=== PATIENT | male | born 1955 | race Caucasian/White ===

== ENCOUNTER 2023-09-25 07:43 | Outpatient (OUT) | payer MEDICARE, OTHER, SELFPAY | END 2023-09-25 07:44 | disposition home or self-care (01) | LOC: LAB 07:45 | PROVIDERS: PCP Internal Medicine | DX: C61 Malignant neoplasm of prostate (principal) | CPT/HCPCS: 36415 ==

== ENCOUNTER 2024-10-20 13:51 | Outpatient (OUT) | payer MEDICARE, OTHER, SELFPAY ==
--- OUTSIDE RECORDS SUMMARY | 2024-10-20 14:06 | XMS_ITS | CCD ---
Author Organization [facility] Care Team Providers Care Assembler Surgical Garment Name Role Phone CHILO RODRIGUEZ Primary Care Physician [phone] CHILO RODRIGUEZ Admitting Unavailable WHIT, DR HIDALGO Primary Care Unavailable WHIT, DR HIDALGO Consulting Unavailable WHIT, DR HIDALGO Attending Unavailable ZIEBER, DR GEE Acosta Consulting Unavailable MISC, DR STONE Attending Unavailable WHIT, DR HIDALGO Primary Care Unavailable MISC, DR STONE Admitting Unavailable MISC, DR STONE Consulting Unavailable Chilo Rodriguez MD Unavailable [phone] Chilo Rodriguez MD Primary Care Provider LUIS Rodriguez Primary Care Provider MD Pearl Pagan Emergency Provider Pearl Pagan Attending Unavailable Pearl Pagan Admitting Unavailable Chilo Rodriguez Primary Care Unavailable KATHY SAHA Attending Unavailable CHILO RODRIGUEZ Attending Unavailable KATHY SAHA Attending Unavailable VIDA OZUNA Attending Unavailable CHILO RODRIGUEZ Referring Unavailable Allergies Allergy Classification Reported Allergen(s) Allergy Type Date of Onset Reaction(s) Facility (2 sources) Sulfamethoxazole; Translations: [sulfamethoxazole] Drug Allergy 08-26-20 24 Eruption of skin (disorder) [facility] (1 source) Sulfamethoxazole / Trimethoprim Drug Allergy rash [facility] Other (1 source) Sulfonamides (Antibiotic) Drug allergy (disorder) 02-22-20 14 [facility] Repository (9 sources) Sulfamethoxazole Allergy to substance 06-23-20 Unknown [facility] Work Phone: (10 sources) Trimethoprim Drug Allergy 06-23-20 23 Unknown [facility] (2 sources) Sulfonamides (Antibiotic); Translations: [Sulfa (Sulfonamide Antibiotics)] Allergy to substance 08-26-20 Hives [facility] (1 source) Sulfamethoxazole Drug Allergy 08-26-20 [facility] Repository (1 source) Trimethoprim Drug Allergy 08-26-20 [facility] Repository Medications Current Medications Medication Drug Class(es) Dates Sig (Normalized) Sig (Original) amoxicillin 875 mg / clavulanate 125 mg oral tablet (1 source) Penicillin-class Antibacterial Start: 09-01-2021 take 1 tablet by mouth every twelve hours Amoxicillin-Pot Clavulanate 875-125 MG 1 tablet Orally every 12 hrs for 10 day(s) Aug, Active cetirizine hydrochloride 10 mg oral tablet (11 sources) Histamine-1 Receptor Antagonist Start: 02-19-2024 take 1 tablet by mouth once daily cetirizine (ZyrTEC) 10 MG tablet Indications: Seasonal allergic rhinitis due to pollen Take 1 tablet (10 mg) by mouth Daily for 14 days 14 tablet 02/19/2024 Active Start: 06-15-2019 take 1 capsule by [facility] once daily as needed cetirizine 10 mg oral capsule 10 mg = 1 cap(s), Oral, Daily, PRN for allergy symptoms, # 40 cap(s), Refills(s) 0 Start Date: 06/15/19 Status: Ordered Start: 12-09-2018 End: 11-16-2019 take 10 mg by mouth once daily Cetirizine Discontinued 10 MG PO Daily December 09, 2018 1:00am November 16, 2019 6:12pm fluorouracil 50 mg/ml topical cream (2 sources) Nucleoside Metabolic Inhibitor Start: 09-27-2024 fluorouracil (Efudex) 5 % cream Indications: Actinic keratosis Apply to directed areas on the forearms twice a day x 14 days. Dispense 30 day supply but only use for 14 days. 40 g 09/27/2024 Active fluticasone propionate 0.05 mg/actuat metered dose nasal spray (9 sources) Corticosteroid Start: 02-19-2024 take 1-2 spray(s) nasal route once daily fluticasone (Flonase) 50 MCG/ACT nasal spray Indications: Seasonal allergic rhinitis due to pollen Administer 1-2 sprays into each nostril Daily Shake gently. Before first use, prime pump. After use, clean tip and replace cap. 16 g 02/19/2024 Active hydroCHLOROthiazide 25 mg / lisinopril 20 mg oral tablet (11 sources) Thiazide Diuretic, Angiotensin Converting Enzyme Inhibitor Start: 12-09-2018 take 1 tablet by mouth once daily lisinopril-hydro CHLOROthiazide 20-25 MG tablet Indications: Essential (primary) hypertension (CMS/HCC) TAKE 1 TABLET BY MOUTH ONCE DAILY 100 tablet 3 08/09/2024 Active ibuprofen 800 mg oral tablet (6 sources) Nonsteroidal Anti-inflammatory Drug Start: 08-26-2024 take 800 mg by mouth three times daily Ibuprofen Active 800 MG PO Three times daily August 26, 2024 12:00am omeprazole 20 mg delayed release oral tablet (10 sources) Proton Pump Inhibitor Start: 12-09-2018 Omeprazole Active 20 MG PO Q48H December 09, 2018 1:00am take 2 capsules by mouth once da adriane omeprazole (PriLOSEC) [address] capsule Take 2 capsules by mouth 1 (one) time each day at the same time. Active omeprazole 20 mg Cap-DR (1 source) Start: 06-15-2019 omeprazole 20 mg Cap-DR See Instructions, 1 cap(s) every other day, Refills(s) 0 Start Date: 06/15/19 Status: Ordered sildenafil 100 mg oral tablet (5 sources) Phosphodiesterase 5 Inhibitor Start: 07-22-2024 take 1 tablet by mouth every twenty-four hours as needed sildenafil (Viagra) 100 MG tablet Take 100 mg by mouth Daily as needed 07/22/2024 Active Completed/Discontinued Medications Medication Drug Class(es) Dates Sig (Normalized) Sig (Original) loratadine 10 mg oral tablet (1 source) Start: 06-26-2020 End: 08-26-2024 take 1 tablet by mouth once daily Loratadine (Claritin) 10 mg Tablet Discontinued 10 MG PO Daily June 26, 2020 12:00am August 26, 2024 4:38pm naproxen 500 mg oral tablet (2 sources) Nonsteroidal Anti-inflammatory Drug Start: 12-09-2018 End: 06-26-2020 take 500 mg by mouth twice daily at mealtime Naproxen Discontinued 500 MG PO Twice daily November 16, 2019 1:00am June 26, 2020 1:09pm administer with food or milk Tumeric (1 source) Start: 11-16-2019 End: 06-26-2020 take 1000 mg by mouth once daily Tumeric Discontinued 1000 MG PO Daily November 16, 2019 1:00am June 26, 2020 1:10pm Problems Active Problems Problem Classification Problem Date Documented Date Episodic/Chronic Cardiac dysrhythmias (4 sources) Multiple premature ventricular complexes; Translations: [Ventricular premature depolarization] 08-23-2024 Chronic Disorders of lipid metabolism (11 sources) Hyperlipidemia; Translations: [Hyperlipidemia, unspecified] Onset: 06-23-2023 06-23-2023 Chronic Diverticulosis and diverticulitis (9 sources) Diverticulitis of large intestine; Translations: [Diverticulitis of large intestine without perforation or abscess without bleeding] Onset: 06-23-2023 06-23-2023 Chronic Esophageal disorders (18 sources) Gastro-esophageal reflux disease with esophagitis; Translations: [Gastroesophageal reflux disease with esophagitis] Onset: 06-23-2023 Resolved: 02-19-2024 06-23-2023 Chronic Essential hypertension (14 sources) Hypertensive disorder; Translations: [Benign essential hypertension] Onset: 06-23-2023 06-15-2019 Chronic Hyperplasia of prostate (19 sources) Benign prostatic hypertrophy with outflow obstruction; Translations: [Large prostate ] Onset: 10-15-2018 Resolved: 02-19-2024 07-01-2019 Chronic Immunizations and screening for infectious disease (3 sources) Contact with and (suspected) exposure to other viral communicable diseases; Translations: [Needs influenza immunization] Onset: 09-01-2021 Resolved: 09-01-2021 Episodic Neoplasms of unspecified nature or uncertain behavior (2 sources) Neoplastic disease; Translations: [Neoplasm of unspecified behavior of bone, soft tissue, and skin] 09-27-2024 Episodic Nonspecific chest pain (10 sources) Atypical chest pain; Translations: [Other chest pain] Onset: 08-26-2024 08-26-2024 Episodic Osteoarthritis (9 sources) Osteoarthritis of knee; Translations: [Osteoarthritis of knee, unspecified] Onset: 06-23-2023 06-23-2023 Chronic Other connective tissue disease (2 sources) Digital mucous cyst; Translations: [Ganglion, unspecified hand] 09-27-2024 Episodic Other inflammatory condition of skin (2 sources) Erythema of skin; Translations: [Other specified erythematous conditions] 09-27-2024 Episodic Other skin disorders (4 sources) Actinic keratosis; Translations: [Actinic keratosis] 09-27-2024 Episodic Other skin disorders (2 sources) Seborrheic keratosis; Translations: [Other seborrheic keratosis] 09-27-2024 Episodic Other upper respiratory disease (9 sources) Allergic rhinitis; Translations: [Allergic rhinitis, unspecified] Onset: 06-23-2023 06-23-2023 Chronic Viral infection (6 sources) Mass of skin; Translations: [Viral wart, unspecified] 08-23-2024 Episodic Past or Other Problems Problem Classification Problem Date Documented Da te Episodic/Chronic Abdominal pain (4 sources) Lower abdominal pain, unspecified; Translations: [LOWER ABDOMINAL PAIN UNSPECIFIED] Onset: 05-31-2022 Episodic Cancer of prostate (16 sources) Malignant tumor of prostate; Translations: [Malignant neoplasm of prostate] Onset: 05-10-2014 Resolved: 02-19-2024 07-01-2019 Chronic Cancer of prostate (10 sources) History of malignant neoplasm of prostate; Translations: [Personal history of malignant neoplasm of prostate] Onset: 06-16-2014 06-15-2019 Episodic Genitourinary symptoms and ill-defined conditions (10 sources) Nocturia; Translations: [Nocturia] Onset: 02-19-2024 06-15-2019 Episodic Joint disorders and dislocations; trauma-related (9 sources) Derangement of right knee; Translations: [Unspecified internal derangement of right knee] Onset: 06-23-2023 Resolved: 02-19-2024 02-19-2024 Chronic Mood disorders (9 sources) Mood disorders Onset: 02-19-2024 02-19-2024 Nausea and vomiting (9 sources) Postoperative nausea and vomiting; Translations: [Nausea with vomiting, unspecified] Onset: 02-19-2024 Resolved: 02-19-2024 02-19-2024 Episodic Other gastrointestinal disorders (10 sources) Stool DNA-based colorectal cancer screening positive; Translations: [Other fecal abnormalities] Onset: 02-19-2024 02-19-2024 Episodic Other nutritional; endocrine; and metabolic disorders (9 sources) Body mass index 30+ - obesity; Translations: [Obesity, unspecified] Onset: 12-21-2019 Resolved: 02-19-2024 02-19-2024 Chronic Other nutritional; endocrine; and metabolic disorders (9 sources) Body mass index 25-29 - overweight; Translations: [Overweight] Onset: 02-19-2024 02-19-2024 Episodic Other screening for suspected conditions (not mental disorders or infectious disease) (10 sources) Raised prostate specific antigen; Translations: [Rising PSA following treatment for malignant neoplasm of prostate] Onset: 06-23-2019 07-01-2019 Episodic Other upper respiratory infections (1 source) Acute maxillary sinusitis, unspecified Onset: 09-01-2021 Resolved: 09-01-2021 Episodic Viral infection (1 source) Disease caused by 2019-nCoV; Translations: [COVID-19] Results Test Name Value Interpretation Reference Range Facility Laboratory - Specimen inform ationon 09-30-2024 Specimen type Nom (Spec) SPECIMEN: LT FOREARM [facility] No Panel Informationon 09-30 CPT 38239*1 [facility] Final Diagnosis SQUAMOUS CELL CARCIN NITA, WELL-DIFFERENTIATED, INVASIVE. [facility] Gross Text [facility] ICD10 Code C44.621 [facility] Microscopic Description Microscopic examination performed. [facility] PROTOCOL F - FLAT [facility] No Panel Informationon 09-27 [facility] Type of biopsy: garces ential Informed consent: discussed and consent obtained Informed consent comment: The risks and benefits of the biopsy were discussed. Risks include but are not limited to bleeding, infection, scarring, pain, and nerve damage. An opportunity to ask questions prior to the procedure was permitted and all questions were answered. Patient was prepped and draped in usual sterile fashion: area cleansed with alcohol. Anesthesia: the lesion was anesthetized in a standard fashion Anesthetic: 1% lidocaine w/ epinephrine 1-100,000 buffered w/ 8.4% NaHCO3 Instrument used: DermaBlade Hemostasis achieved with: electrodesiccation Outcome: patient tolerated procedure well Outcome comment: The specimen was placed in a prelabeled formalin container to be sent for pathology Post-procedure details: sterile dressing applied and wound care instructions given Post-procedure details comment: Emphasized need to contact clinic for any signs of infection, uncontrollable bleeding, or complications. Dressing type: bandage Additional details: Photo taken Amount of lidocaine used: 1.0 cc [facility] Alanine aminotransferase [En zymatic activity/volume] in Serum or PlasmaOrdered By: Pearl Pagan on 08-26-2024 ALT [Catalytic activity/Vol] 15 U/L Normal 7-52 [facility] Comment on above: Performed By: #### C BC, CMP, CK, HS TROP #### [place] [address] [place] Albumin [Mass/volume] in Ser um or Plasma by Bromocresol green (BCG) dye binding methoOrdered By: Pearl Pagan on 08-26-2024 Albumin BCG dye [Mass/Vol] 4.5 g/dL 3.5-5.7 [facility] Alkaline phosphatase [Enzyma tic activity/volume] in Serum or PlasmaOrdered By: Pearl Pagan on 08-26-2024 ALP [Catalytic activity/Vol] 77 U/L Normal 34-104 [facility] Comment on above: Performed By: #### C BC, CMP, CK, HS TROP #### [place] [address] [place] Aspartate aminotransferase [ Enzymatic activity/volume] in Serum or PlasmaOrdered By: Pearl Pagan on 08-26-2024 AST [Catalytic activity/Vol] 17 U/L Normal 13-39 [facility] Comment on above: Performed By: #### C BC, CMP, CK, HS TROP #### [place] [address] [place] Automated basophil %Ordered By: Pearl Pagan on 08-26-2024 Basophils/100 WBC (Bld) 0.8 % Normal . [facility] Comment on above: Performed By: #### C BC, CMP, CK, HS TROP #### [address] [address] [place] Automated basophil countOrde red By: Pearl Pagan on 08-26-2024 Basophils (Bld) [#/Vol] 0.1 10*3/uL Normal 0.0-0.2 [facility] Comment on above: Result Comment: PERF ORMED BY: [place] [address] PATHOLOGIST ROUTE AGENT TIM MCKEON M.D. Performed By: #### C BC, CMP, CK, HS TROP #### [address] Automated blood monocyte cou ntOrdered By: Pearl Pagan on 08-26-2024 Monocytes (Bld) [#/Vol] 0.6 10*3/uL Normal 0.0-0.8 [facility] Comment on above: Performed By: #### C BC, CMP, CK, HS TROP #### [facility] [address] [place] [address] Automated eosinophil %Ordere d By: Pearl Pagan on 08-26-2024 Eosinophils/100 WBC (Bld) 4.1 % Normal . [facility] Comment on above: Performed By: #### C BC, CMP, CK, HS TROP #### [facility] [address] [place] [address] Automated eosinophil countOr dered By: Pearl Pagan on 08-26-2024 Eosinophils (Bld) [#/Vol] 0.3 10*3/uL Normal 0.0-0.45 [facility] Comment on above: Performed By: #### C BC, CMP, CK, HS TROP #### [address] Automated monocyte %Ordered By: Pearl Pagan on 08-26-2024 Monocytes/100 WBC (Bld) 9.4 % Normal . [facility] Comment on above: Performed By: #### C BC, CMP, CK, HS TROP #### [facility] [address] [place] [address] Automated neutrophil %Ordere d By: Pearl Pagan on 08-26-2024 Neutrophils/100 WBC (Bld) 61.4 % Normal . [facility] Comment on above: Performed By: #### C BC, CMP, CK, HS TROP #### [facility] [address] [place] [address] [place] Bilirubin.total [Mass/volume ] in Serum or PlasmaOrdered By: Pearl Pagan on 08-26-2024 Bilirubin [Mass/Vol] 0.4 mg/dL Normal 0.3-1.0 [facility] Comment on above: Performed By: #### C BC, CMP, CK, HS TROP #### [facility] [address] [place] [address] [place] Calcium [Mass/volume] in Ser um or PlasmaOrdered By: Pearl Pagan on 08-26-2024 Calcium [Mass/Vol] 9.6 mg/dL Normal 8.6-10.3 [facility] Comment on above: Performed By: #### C BC, CMP, CK, HS TROP #### [facility] [address] [place] [address] [place] Carbon dioxide, total [Moles /volume] in Serum or PlasmaOrdered By: Pearl Pagan on 08-26-2024 CO2 [Moles/Vol] 27.9 mmol/L Normal 21.0-31.0 [facility] Comment on above: Performed By: #### C BC, CMP, CK, HS TROP #### [place] [address] [place] Chloride [Moles/volume] in S isa or PlasmaOrdered By: Pearl Pagan on 08-26-2024 Chloride [Moles/Vol] 103 mmol/L Normal 98-107 [facility] Comment on above: Performed By: #### C BC, CMP, CK, HS TROP #### [place] [address] [place] Complete Blood Count Auto Di ffon 08-26-2024 Mean Corpuscular HGB Conc 35.5 g/dL Normal 32.5-35.6 [facility] Comment on above: Performed By: #### C BC, CMP, CK, HS TROP #### [place] [address] [place] Monocytes/100 WBC (Bld) 17.86 % Normal 0.00-20.00 [facility] Comment on above: Performed By: #### C BC, CMP, CK, HS TROP #### [address] NRBC% 0.2 /100{WBC} Normal 0-0.5 [facility] Comment on above: Performed By: #### C BC, CMP, CK, HS TROP #### [address] Comprehensive Metabolic Pane bridgette 08-26-2024 Albumin [Mass/Vol] 4.5 g/dL Normal 3.5-5.7 [facility] Comment on above: Performed By: #### C BC, CMP, CK, HS TROP #### [address] Creatinine Clr Calc Pharmacy 80.77 Normal [facility] Comment on above: Result Comment: PERF ORMED BY: [place] [address] PATHOLOGIST [employer]TE AGENT TIM MCKEON M.D. Performed By: #### C BC, CMP, CK, HS TROP #### [address] GFR/1.73 sq M.predicted MDRD (S/P/Bld) [Vol rate/Area] mL/min/{1.73_m2} Normal [facility] Comment on above: Performed By: #### C BC, CMP, CK, HS TROP #### [address] Creatine kinase [Enzymatic a ctivity/volume] in Serum or PlasmaOrdered By: Pearl Pagan on 08-26-2024 CK [Catalytic activity/Vol] 114 U/L Normal 30-223 [facility] Comment on above: Performed By: #### C BC, CMP, CK, HS TROP #### [address] Creatinine [Mass/volume] in Serum or PlasmaOrdered By: Pearl Pagan on 08-26-2024 Creatinine [Mass/Vol] 0.91 mg/dL Normal 0.70-1.30 [facility] Comment on above: Performed By: #### C BC, CMP, CK, HS TROP #### [facility] [address] ECG 12 lead ECGon 08-26-2024 ECG 12 lead ECG [facility] [address] [place] [address] [place] [address] Electrocardiograph Report Signed Patient: Mahendra Vaughn MR#: [id number] : 1955 Acct:[id number] Age/Sex: 69 / M ADM Date: 08/26/24 Loc: ER Room: Type: [facility] ER Attending Dr: Ordering Provider: Pearl Pagan MD Date of Service: 08/26/24 ECG/ECG 12 lead ECG: Chest Pain Copies to: Test Reason : Blood Pressure : */* mmHG Vent. Rate : 80 BPM Atrial Rate : 80 BPM P-R Int : 162 ms QRS Dur : 94 ms QT Int : 358 ms P-R-T Axes : 30 0 22 degrees QTcB Int : 412 ms Sinus rhythm with occasional premature ventricular complexes Inferior infarct , age undetermined Abnormal ECG When compared with ECG of 16-Nov-2019 15:05, premature ventricular complexes are now present premature supraventricular complexes are no longer present Inferior infarct is now present Confirmed by PEARL PAGAN MD ([id number]) on 08/26/2024 6:54:58 PM Referred By: Electronically Signed By: PEARL PAGAN MD Transcribed By: MUS Signed By Pearl Pagan MD 08/26/24 987 Normal [facility] Erythrocyte distribution wid th [Ratio] by Automated countOrdered By: Pearl Pagan on 08-26-2024 Erythrocyte distribution width (RBC) [Ratio] 13.3 % Normal 12.0-14.8 [facility] Comment on above: Performed By: #### C BC, CMP, CK, HS TROP #### [facility] [address] [place], [place] [id number] [facility] [[email or web address]] Erythrocytes [#/volume] in B lood by Automated countOrdered By: Pearl Pagan on 08-26-2024 RBC (Bld) [#/Vol] 4.67 10*6/uL Normal 3.90-5.60 [facility] Comment on above: Performed By: #### C BC, CMP, CK, HS TROP #### [facility] [address] [place] [address] [place] Glucose [Mass/volume] in Ser um or PlasmaOrdered By: Pearl Pagan on 08-26-2024 Glucose [Mass/Vol] 101 mg/dL High 70-100 [facility] Comment on above: ADA recommended refe rence rangeRandom Glucose Reference Range is dependent on time and content of last meal. Glucose of more than 200 mg/dL in a nonstressed, ambulatory subject supports the diagnosis of Diabetes Mellitus. Result Comment: [place] om Glucose Reference Range is dependent on time and content of last meal. Glucose of more than 200 mg/dL in a nonstressed, ambulatory subject supports the diagnosis of Diabetes Mellitus. ADA recommended reference range Performed By: #### C BC, CMP, CK, HS TROP #### [facility] [address] [place] [address] Hematocrit [Volume Fraction] of Blood by Automated countOrdered By: Pearl Pagan on 08-26-2024 Hematocrit (Bld) [Volume fraction] 41.9 % Normal 38.8-50.0 [facility] Comment on above: Performed By: #### C BC, CMP, CK, HS TROP #### [address] Hemoglobin [Mass/volume] in BloodOrdered By: Pearl Pagan on 08-26-2024 Hemoglobin (Bld) [Mass/Vol] 14.9 g/dL Normal 13.0-17.0 [facility] Comment on above: Performed By: #### C BC, CMP, CK, HS TROP #### [facility] [address] [place] [address] [place] Leukocytes [#/volume] correc heidi for nucleated erythrocytes in Blood by Automated counOrdered By: Pearl Pagan on 08-26-2024 WBC corrected for nucl RBC Auto (Bld) [#/Vol] 6.7 10*3/uL 4.1-10.5 [facility] Leukocytes [#/volume] in Blo od by Automated countOrdered By: Pearl Pagan on 08-26-2024 WBC (Bld) [#/Vol] 6.7 10*3/uL Normal 4.1-10.5 [facility] Comment on above: Performed By: #### C BC, CMP, CK, HS TROP #### [facility] [address] [place] [address] [place] Lymphocytes [#/volume] in Bl ood by Automated countOrdered By: Pearl Pagan on 08-26-2024 Lymphocytes (Bld) [#/Vol] 1.6 10*3/uL Normal 1.00-4.8 [facility] Comment on above: Performed By: #### C BC, CMP, CK, HS TROP #### [facility] [address] [place] [address] [place] Lymphocytes/100 leukocytes i n Blood by Automated countOrdered By: Pearl Pagan on 08-26-2024 Lymphocytes/100 WBC (Bld) 24.3 % Normal . [facility] Comment on above: Performed By: #### C BC, CMP, CK, HS TROP #### [facility] [address] [place] [address] [place] MCH [Entitic mass] by Automa heidi countOrdered By: Pearl Pagan on 08-26-2024 MCH (RBC) [Entitic mass] 31.9 pg Normal 27.5-35.2 [facility] Comment on above: Performed By: #### C BC, CMP, CK, HS TROP #### [address] MCHC Auto (RBC) [Mass/Vol]Or dered By: Pearl Pagan on 08-26-2024 MCHC (RBC) [Mass/Vol] 35.5 g/dL 32.5-35.6 [facility] MCV [Entitic volume] by Auto mated countOrdered By: Pearl Pagan on 08-26-2024 MCV (RBC) [Entitic vol] 89.8 fL Normal 83.5-101 [facility] Comment on above: Performed By: #### C BC, CMP, CK, HS TROP #### [place] [address] [place] Monocyte distribution width [Entitic volume] in Blood by AutomatedOrdered By: Pearl Pagan on 08-26-2024 Monocyte distribution width Auto (Bld) [Entitic vol] 17.86 % 0.00-20.00 [facility] Neutrophils [#/volume] in Bl ood by Automated countOrdered By: Pearl Pagan on 08-26-2024 Neutrophils (Bld) [#/Vol] 4.1 10*3/uL Normal 1.8-7.7 [facility] Comment on above: Performed By: #### C BC, CMP, CK, HS TROP #### [address] No Panel InformationOrdered By: Pearl Pagan on 08-26-2024 Estimated GFR (CKD-EPI) > 60.0 mL/Min [facility] Creatinine Clearance (Chem 80.77 [facility] Nucleated erythrocytes [Pres ence] in Blood by Automated countOrdered By: Pearl Pagan on 08-26-2024 Nucleated RBC Auto Ql (Bld) 0.2 /100{WBC} 0-0.5 [facility] Platelet mean volume [Entiti c volume] in Blood by Automated countOrdered By: Pearl Pagan on 08-26-2024 Platelet mean volume (Bld) [Entitic vol] 7.2 fL Normal 6.6-10.1 [facility] Comment on above: Performed By: #### C BC, CMP, CK, HS TROP #### [address] Platelets [#/volume] in Bloo d by Automated countOrdered By: Pearl Pagan on 08-26-2024 Platelets (Bld) [#/Vol] 175 10*3/uL Normal 150-450 [facility] Comment on above: Performed By: #### C BC, CMP, CK, HS TROP #### [facility] [address] [place] [address] [place] Potassium [Moles/volume] in Serum or PlasmaOrdered By: Pearl Pagan on 08-26-2024 Potassium [Moles/Vol] 3.7 mmol/L Normal 3.5-5.1 [facility] Comment on above: Performed By: #### C BC, CMP, CK, HS TROP #### [facility] [address] Protein [Mass/volume] in Ser um or PlasmaOrdered By: Pearl Pagan on 08-26-2024 Protein [Mass/Vol] 7.5 g/dL Normal 6.4-8.9 [facility] Comment on above: Performed By: #### C BC, CMP, CK, HS TROP #### [address] Serum globulin measurement b y calculation (mass/volume)Ordered By: Pearl Pagan on 08-26-2024 Globulin (S) [Mass/Vol] 3.0 g/dL Normal [facility] Comment on above: Performed By: #### C BC, CMP, CK, HS TROP #### [address] Serum or plasma albumin/glob ulin mass ratioOrdered By: Pearl Pagan on 08-26-2024 Albumin/Globulin [Mass ratio] 1.5 {ratio} [facility] Comment on above: Performed By: #### C BC, CMP, CK, HS TROP #### [address] Serum or plasma anion gap de terminationOrdered By: Pearl Pagan on 08-26-2024 Anion gap [Moles/Vol] 10.8 mmol/L Normal 6.0-15.0 [facility] Comment on above: Performed By: #### C BC, CMP, CK, HS TROP #### [address] Sodium [Moles/volume] in Ser um or PlasmaOrdered By: Pearl Pagan on 08-26-2024 Sodium [Moles/Vol] 138 mmol/L Normal 136-145 [facility] Comment on above: Performed By: #### C BC, CMP, CK, HS TROP #### [address] Troponin I High Sensitivityo n 08-26-2024 Troponin I High Sensitivity 14.2 pg/mL Normal 0.0-20.0 [facility] Comment on above: Result Comment: PERF ORMED BY: [place] [address] PATHOLOGIST ROUTE AGENT TIM MCKEON M.D. Performed By: #### C BC, CMP, CK, HS TROP #### [facility] [address] [place] [address] Troponin I.cardiac [Mass/vol ume] in Serum or Plasma by Detection limit <= 0.01 ng/Ordered By: Pearl Pagan on 08-26-2024 Troponin I.cardiac DL <= 0.01 ng/mL [Mass/Vol] 14.2 pg/mL 0.0-20.0 [facility] Urea nitrogen [Mass/volume] in Serum or PlasmaOrdered By: Pearl Pagan on 08-26-2024 Urea nitrogen [Mass/Vol] 15 mg/dL Normal -25 [facility] Comment on above: Performed By: #### C BC, CMP, CK, HS TROP #### [facility] [address] [place] [address] XR chest 1V portableon 08-26 XR chest 1V portable [facility] [place] [address] [place] [address] XRay Report Signed Patient: Mahendra Vaughn MR#: [id number] : 1955 Acct:[id number] Age/Sex: 69 / M ADM Date: 08/26/24 Loc: ER Room: Type: [facility] ER Attending Dr: Copies to: Pearl Pagan MD Ordering Provider: Pearl Pagan MD Date of Service: 08/26/24 XR/XR chest 1V portable: Chest Pain SINGLE VIEW CHEST CLINICAL HISTORY: Intermittent left-sided chest pain for 3 days COMPARISON: Chest 11/16/2019 FINDINGS: Heart normal in size. Lungs are clear. No free air. XR/XR chest 1V portable IMPRESSION: NO ACUTE FINDINGS Impression dictated by: Domenic Cast Jr., D.O.08/26/2024 4:27 PM Dictation Location: [place] [address] Transcribed By: [facility] 08/26/241626 Dictated By: Domenic Cast Jr, DO 08/26/241625 Signed By: 08/26/24 1627 Normal [facility] BOX TEST SENT OUTon 10-23-20 SENT TO REF LAB 10/23/2022 Normal [facility] Comment on above: Performed By: #### B OX #### [facility] [address] ABD/PELV W CONon 05-31-20 CT ABD/PELV W CON EXAMINATION: CT ABD/ PELV W CON HISTORY: Lower abdominal pain ; stomach cramping COMPARISON: No relevant comparison available. TECHNIQUE: Axial, Coronal, and Sagittal images were created with IV contrast. Dose reduction techniques were achieved by using automated exposure control and/or adjustment of mA and/or kV according to patient size and/or use of iterative reconstruction technique. FINDINGS: LUNG BASES: No visible pulmonary or pleural disease. LIVER: No enlargement, atrophy, suspicious density, or significant focal lesion. BILIARY: No dilatation or calcification. PANCREAS: No lesion, fluid collection, or abnormal duct dilatation. SPLEEN: No enlargement or focal lesion. ADRENALS: No mass or enlargement. KIDNEYS: A few small hypodensities bilaterally, nonspecific but favoring cysts. No mass, obstruction, or calcification. BOWEL/MESENTERY: Mild circumferential wall thickening of distal stomach; lack of distention versus gastritis. Numerous small diverticula involving the sigmoid colon without acute inflammatory changes. No visible mass, obstruction, or bowel wall thickening. Normal appendix. AORTA/VASCULAR: No aneurysm or dissection. RETROPERITONEUM: No mass or adenopathy. LYMPH NODES: No adenopathy. URINARY BLADDER: No visible focal wall thickening, lesion, or calculus. PELVIC ORGANS: No visible mass. Pelvic organs appropriate for patient age. ABDOMINAL WALL: No mass or hernia. BONES: L5-S1 marked degenerative disc disease. Degenerative changes of the hip joints bilaterally. OTHER: Negative. IMPRESSION: 1. Possible gastritis of distal stomach; wall thickening which may be due to inflammatory changes or lack of distention. 2. Sigmoid diverticulosis without acute diverticulitis. 3. No specific findings to account for patient's symptoms. Electronically authenticated by: GEE ESCOBAR Date: 2022-05-31 17:28 Normal [facility] Coding Summary.on 12-03-2021 Coding Summary. [id number] Gh0bWw +PGhlYWQ+VH4ZJXCiA93avXWre H6KL7fQRG4DGCHEQMHYYC4DDV3 enIZ8OCmwW9ZtlgEq RikqsUYpHK63IBv7INV7sKwcJI xhrN3bzPAlW5g1DeTeQW59zT99 HOydBCPeGjP1XaVrwhjxfRFy L2srAiJapHHlIza+PHRhYmxlIH noZGMbAAejFKJhFcJsfNicYE1d Om1nYNFiKXNdwDdigYSiYdDr v7hlYZLcVKuvYH0prUdaH5PqnP G8UXIqe6b1Nz19oSH+PHRkIHN0 yAqrXYfuz074QxAtk8auGTE3 mKBsVMejTND9Y48ab1T4SLXjCY MvTRZ4uRC1tV8qxKyisopuQ4Hw eKEeUkM9UBY1wDIqvY7mgQkf xrrgqW2nAoe+H84UJT7WRVDDQB 5ICrk5W4XmBwtuyZV+UR91LRMu KR80iQVclKQkx8xegSm6OyOu RFVmPHS5zKpdNVcnc9JsFKGrA5 9jiGVju6J8SAZeqQwwxFPwXoFd rFM8rC4pSTfrzhbbn7jaqmbb Moyew9ekul04tO26V00yDToqKH BhRVJ7NHKdZYOcjYprdw6yvL5t Ii8+BRwyh5hpp1ypfEt7AsNy TWWsjdHixEcbSTW3n3EcYx74T3 EqpAwqw1QtZkt8jr67mMSoh3E9 iWX9IRbjNPLrcL0zUQkqTfB8 RXZoIvGutM44fDNbKNebDz8gwO pnpLyvLX2pARYlvjkuSIKdlP3d HVHlfOZfsUtjVT9iZFUvhubq i671NuGfDNW0QKGowAIyR6DmrJ 5wYtGkYYGeKDIsK6DxkAUvNVfa G438IZexLdQ7HYXwodTuP0Ns QJSuoZjfPgT6a2V7Dl7Sp6Nzgj pdCJY8XOqfUZQrOuU5BcReCuD0 J1NyQcf1OQMnqIhzFM6fE1Rk YZYpdmsfjyyheDV8AEPxGYWneC 09jPVcIJagPp2av3D7z591LIWa OXJayL80Mh1naLlpVQJocHBE kE5yvaqyy8wmzjpzZcQeTYVeND w7QLj2UMNvbIxpMlPuYTD6WlA1 YWY4kVUiiK6bjDcimjgwsF2n Oyc+L40zkC1lVFL2VXI5gbuqWB DikeNeSJ13RC18Q1VeXcsifJNp bGU+LUVthnWzmXzrFK8xNaEu e9ihj8YdQXpmC7KcOOPvPXefUz d6GVHmASF3aGU8qL5gAVGjVWig r6V1nHV2C8XffrHrzc2lj9wr CHObSIogV31wySZgq6O1RHBxsL B2GVGypPhtZxCslU15Yvl+PGNv tPtqj0VmRthgo9nzm7rdyLt1 KiReRYYcmpTwtOmaNNZ9s9YyXp 09A03fLCpcKFGpYNJrVGGcBWSp iXihpa1muR2wFb6+PGNvbCB3 kAG7zW8bVSMeQgR9XYvwW971Zc XsxAJsUnuvt5qco7mqtZw7BdYm OMZsxyVtlHhsTBF0m1ZjSr00 Y40cBUasJTLkAJLcKPBdOPDicQ rdqe4ufN4uCw0+WE5kp6jxas27 aC48aWJ+XZHbUHJ7oPujGMwz NRDhsN8gGPcvXwG7WUTvHjScxN 50bKVfQPamIh2stIvmfCsjID5w MISgqeknu133ZhScf8vkYZTf kDZbPAacBDW2R87lm3U3KYZgFZ JhLRF0yEO8jB1hnZcbtmnaqVEv xXpjwgEasUdaVDujJJtfV883 IHRvcDsnPlBhdGllbnQgTmFtZT a7L7PoJwm4XXDbqOoaRE4cmWCz LRugKs5esJhqlAnvEL0jUDZj tklzf019TaLnp6xnTPSemFJnSK cmECF4F26rt3X1NYTjIVPeRQL6 yGD3xE9bmAotznmivWKboKjf fgOphJxsSEtgDHnaA193TLXhhG isYwHqvuFxADRbkAS6WN24EK06 cMOyj2A7xVT6M2OdEXLectqk amihuQA8ZRVyRXThpG68Fj8cqE vbEw0zQUIoRFZ7AWRsoGNbE4Ta wE6tTuVpPQNjJUWrX7UlmONw AVifO220NFsoZdI1CIAdmxQoO9 RsLQUvyOphImG4q2L2Bg5MD4O0 FK39OE76oURzf9V1gFX0Q7Ze YWUspfyfvmggqWM3KXToPTAeeP 30Hg0tvFdoLd0mGYPnCLY4VICp mCBxL1JawD5iUsCvRMCuCCUo J2PljBVqSJcrX036ICtvAoG7NC RiyzPoS1RrUPJndMquTtM2o0R2 Nt9CJHl5UQ05PP91mVCug1Z0 fAK4O4HlQQOesrxlrdbuqDW8WB WhYSFzpD18Me2lyKoyNw6pKYDo DMN6TBDrzJRjB3XotV4xHpPd ACJbNVVgI7GocEGvHLtxY042OI pxJjL5RTZzqsSoP5OzUNRymRet LzE8w9D9Nh6VFOLcVJ26DEF1 iHD4TN82SM47V8OzUbkarBRziZ U+PHRhYmxlIHdpZHRoPScxMDAl RxJveHczBJ7iMw7sZQVuOLXq hRivbONvJhMoh5nqRIKnZYrdVC 8baNfgP0VlzHT7POOaf1c1Ts65 U97bB6LktFX+KBPvoXU6aBU8 iZ1wKfYoFcC6ZLylY202SuChcV DgEntwj8ars1mczFq0WoZ5AMVo dzQzoZawJNR5w6UmFn57K98t IHdpZHRoPSIxNSUiIHZhbGlnbj 9spC5kSx5+TRLniBC3kQV4xZ4w LmNcWnK0YZxpR037OkJlpUBi Xifmw9vce6klpRe2SsQlHCZfor MfbSquXJP9w6FxOq46I1IucEwa o9EkTla0nk97kRKsb9G7eJZ7 X6IcSOLhcixnoTBfyPznJJ7eMY VnmussEWYjwY9kUVErT2j6VyFo WyP3LXmzL6DoxaR5FKEmlRYh HGvmXWL3D04hr1K3ARKiRLDdVS L2dNH3lA7qbUbsmaflwCVdsDgv ikLbzHlgRIuiREgxA776RGEj qJisOVZavL1nVPKapVJqxVwgCG 8kNMCirqcySsKLSlFFLN0IXUeu UkFORFkgSjwvdGQ+PHRkIHN0 sQxfEYbmGKGagW0wNOXjY9r1Oh CeFnC2OYfaO6MoSZWxeqmeXp42 rR4eDvJxBlC8CZkkZ8PcgjS5 IPIcvNSrNPsuYND6N22gu0E0AY AbGNMpJBG6mTA5qT9bgNufhxry bGVmdDsgdmVydGljYWwtYWxp S747SVRavJoqClF8LrM3FpC6OH S2Q1UoXyr3PNKxqAesMB3gdGUn AQzaQu9ttDiapPkeVB8cHZSd lsiaPPSksN7sIPAemCHwvZfyHN 7nQPDizlyab596IiItEDC8LOYb nONdZ0LyiC9vNqVeMKPxKDSh V5TvrVQrOFkaP628XXgsIzC2WK KoftFoO2GzYYZvkRypAnJ7m6M9 Zu99AlAZSLKxaujywSL+PHRk CHU2mAgjLXzyWNTzeF4uDHElY9 d3FgKbHxS2YXjpC3FlKIMytdid Hp21jU5uGuYnWpX0AHgzG3Ak fpV0VYQwpIJbQEhqFEB8G90ie3 Y0MVMbRTGlEUD1zUR1rV6dwBna bjogbGVmdDsgdmVydGljYWwt ECvgX479ZHTyvDxkUe6vwZD1D9 KeOpt4PWYtnHajOM3ksCXlKKle Pl8kpKbnhWfcTG2gKPEjdsqi LKVkmA6qLFZpgUMcoNhvYV8uVA Litstcg761GfRuPDV6IPPssUCs C6FezN4hItXvQQYqNBYbM4Fy dFSkSAbtQ972ZRmhQtS2RZUdqx MkM3GyVLNxtElpFjJ5r5D2On3F VFR5vqLtldj9Y2OtQwonvAZ+ DO28UUPlOK60wAGwtBCee4emlL s3OcTwBPGySVO7uCkrWNkfr6Ep DPLfO86mrBRpk1L6IYFaeQrp dTSuQaZqhCA7bK1dIWnoncqzy5 osdqxyOgusj7ryow97pP89J56a IHdpZHRoPSIzMCUiIHZhbGln sv5xrX3mNk1+WYMlgOK8jCL7dY 9fQjGzNzM9TNfmC259VvVivSYr Ukase9qie8ndgNa5VeEtHWCc ehKxmEymQQX0r9XwTp28U51cDW siPXDxTYSkGXXyBQAekCmjmg1q tQ6lUh1+GR7st2syne16kZ08 dHI+OJPnCUK4xMxkFSreKYXneK 0hFLiqApG1GXBkBfQuwF55gLBf QVdyCf8keMiyyLowAP4pJIDp duiag852RiNut4nuIAFkrEXeIU emAYA6D90xb7X0ZGFlCQJbVWJ7 pNT9tP7puXbotjewlFDpzUry sdBmdHkuSJbbKFcsG636NWRvcH duRxIvwTRoV3idcyAZCV2hLeoh dGQ+ZUCcKCA1dZdmKXihFXIn eQ8tYHSqD2l8EgCePuJ4XRybK2 EgerG1CUGdwBAxFJRwcJCKpB1c qdnjw6telzruVuAvFTJdBNs2 NAe4JNUkzQkpIvEtQRG3BwN7FG G8hRCvuA7uzFoynzmjjJ0rQyd+ RklOOjwvdGQ+YXEwPGS5xHeb QSguZPQlmR5mHUIzQ7p3IvQdCv O6TNypS2ZzlmL3OJQzzFKdJHRe yBUBeZ1sominz8krevpgFiIz ZJXuOHw7JQh3FWGhdCgkWqDcNH P5HwO7GEL7cZIpmG7rkYauecrp bX5uGvj+TVJOOjwvdGQ+PHRk VLE8kJiiBDrgGFRyhX6pRUYuU0 v4PiGhStR2PKmtD2OgdtX6NBKh uMRaBWNdvUQGaJ0altnif2mg yaetHtUwDIJxAAx8RZc4QJHgfS xyTsGfJCC1AtR4NIW7uKMhrW6x iSubkujmrI7fIis+AFY8VTW8 HG76JH83W5XaCcealTOpgBR+PH RhYmxlIHdpZHRoPScxMDAlJyBz ySrfSA0uQg4iVRSgPTIvqPce cHNl (more content not included)... Normal [facility] Priority Order-Marcia 2021 Priority Order-STAT Comment Invalid Interpretation Code [facility] Comment on above: Result Comment: Rece ived Performed at: [employer] [id number] [id number] PhD Mitesh Chand Performed By: #### 2 [id number], SARS-CoV-2, ANNE #### [facility] [address] [place] [address] SARS-CoV-2, NAAon 12-01-2021 SARS-CoV-2 (COVID-19) RNA ANNE+probe Ql (Resp) Detected Abnormal Not Detected [facility] Comment on above: Result Comment: Yadira ents who have a positive COVID-19 test result may now have treatment options. Treatment options are available for patients with mild to moderate symptoms and for hospitalized patients. Visit our website at [email or web address] for resources and information. This nucleic acid amplification test was developed and its performance characteristics determined by [employer]. Nucleic acid amplification tests include RT-PCR and TMA. This test has not been FDA cleared or approved. This test has been authorized by FDA under an Emergency Use Authorization (EUA). This test is only authorized for the duration of time the declaration that circumstances exist justifying the authorization of the emergency use of in vitro diagnostic tests for detection of SARS-CoV-2 virus and/or diagnosis of COVID-19 infection under section 564(b)(1) of the Act, 21 U.S.C. 360bbb-3(b) (1), unless the authorization is terminated or revoked sooner. When diagnostic testing is negative, the possibility of a false negative result should be considered in the context of a patient's recent exposures and the presence of clinical signs and symptoms consistent with COVID-19. An individual without symptoms of COVID-19 and who is not shedding SARS-CoV-2 virus would expect to have a negative (not detected) result in this assay. Performed at: [facility] [id number] [id number] PhD Mitesh Chand Performed By: #### 2 [id number], SARS-CoV-2, ANNE #### [facility] [address] [place] [address] Consent for Treatmenton 11-11 Consent for Treatment [id number]:127 Normal [facility] Physician Orderon 11-30-2021 Physician Order [id number]:127 Normal [facility] Testing Ordered By: Generated [employer] on 11-30-2021 SARS-CoV-2 (COVID-19) RNA ANNE+probe Ql (Resp) Detected Invalid Interpretation Code Not Detected [facility] [employer] Comment on above: Result Comment: Yadira ents who have a positive COVID-19 test result may now have treatment options. Treatment options are available for patients with mild to moderate symptoms and for hospitalized patients. Visit our website at [email or web address] for resources and information. This nucleic acid amplification test was developed and its performance characteristics determined by [employer]. Nucleic acid amplification tests include RT-PCR and TMA. This test has not been FDA cleared or approved. This test has been authorized by FDA under an Emergency Use Authorization (EUA). This test is only authorized for the duration of time the declaration that circumstances exist justifying the authorization of the emergency use of in vitro diagnostic tests for detection of SARS-CoV-2 virus and/or diagnosis of COVID-19 infection under section 564(b)(1) of the Act, 21 U.S.C. 360bbb-3(b) (1), unless the authorization is terminated or revoked sooner. When diagnostic testing is negative, the possibility of a false negative result should be considered in the context of a patient's recent exposures and the presence of clinical signs and symptoms consistent with COVID-19. An individual without symptoms of COVID-19 and who is not shedding SARS-CoV-2 virus would expect to have a negative (not detected) result in this assay. Performed at: [address] [id number] PhD Mitesh Chand Coding Summary.on 10-25-2021 Coding Summary. [id number] Gh0bWw +PGhlYWQ+NT8JAAGgZ79odQWfs H2YP9jBJP9RWKQJXFMFTC9TKN2 rkRD1LIzwU9OkkcMx DsckbVXdTU32KKf4WZI9kCiuJK epsB6cdHFkB9w5TfToYK50yJ35 WDwgJYLdWiU8TbGhlflqvIUy H4jlWhXbnGGzPxm+PHRhYmxlIH mwZLXlSXzlFQOiHrRpjBnuOQ4s Uk7xDNHlZXUjeDpyhBOmLiUd s4syOVSjEXnmCQ6xtCynJ4NzhS B0RSJgt0c7Da27oYL+PHRkIHN0 bFcgAXbmt855NaCox4piLZU1 pODbDPafLAI7W32ng2E9SEZrGM EnOLH5sNS8hX7riAylfotdK4No mTTsPxO8DLG8hZLvrJ1kjYxs okdjdJ8dZei+D99EWH7LKDIFRA 6PTwf9K5ZvJuvevTZ+HQ25HUIc VM29mRFhqSOva5lheYj0XoRd XXSgKJG5wMrpGCnmp1FbFUYeK6 7yfHYdv7X7IYWfvPjhtLItAmYz cHY8nH7qVSqyfbxbh2ovsvfr Jxuzi4gfzh91eJ21L76kLOjwEZ XvTOG5KBHdPEBzyEtnzp6etF1k Ii8+EBexa4bld2httAd4BpZe GWMovbXkuRujYOS7t2JnTb21L0 EmlVjmk1UxHam9dw54eTMzg9M9 fZG1FBknSWVxzX4kOJvdYqE3 MDSqPfPzpQ72eDPhCRxgNv5bwP ihlOjbXO1jELTqhfozSFHlvP7b TZMvcPSvfTaqCU5xICFlctfs o539GjUjTEH6BLOawZArQ0KknW 2aUjTaFSEnZYBgQ0KqtOAtXThn Z686BHslJlJ9VGUjihEnI9Wg CBPlvJcpPwR2m5L4Nh6Mm6Ostv ecFKG4YXbfXDSvFoW8KqPmQhB3 C4QpPen2FMIavBhtOD6wZ7Ml ICIvwxfcdybsiVW1RWXtPJNkaJ 40lCVpDYtpMm5rj8W0a119IFBz VFGkfD02Ek1lyHxrIAEqtJFR sS4itnmpx3adakaqYuTfNNUnLR u9HHp6DZJvyLbsSoFxNIW5FrT8 LEP3sGWnkB5iyBakqzqrqE8p Oyc+W00ubF2xVAF5RJE7luywWF JqnyCeJD87BW77K6XaCztsyEEx bGU+TSMzxfKzxWtyWA2vXtCw j0yec0MuAZggX8HrBJBhCBvxIy x9QXQiEAG9sVH2vB2cOMUcSWhs x6R3yDP8W6QuzsLsey4rn9sj RJQrQQfuT48hhBBnk1V2CTAlzI C6BAQmuCugLlUaoP52Bfk+PGNv wCrgq8JdIqgun5ocj5oezNv0 OvOjHKRcsbXdwEsgEKN4g5VpIn 21R49zIRxdCIEvIIEiSVThLGJx nTirtx4exC5kId2+PGNvbCB3 vPR9uN3yABKwDqR6NZygD012Pt LlpEJfYbsqy2isd1qldAr0GkQi UXWtjtMbzQfcJCS0m0EnAx33 R33nIDglXYEfJXUqCBTnZQNsbB utal0kyE2eAp7+JG0qv8jyyi94 hX52qFC+GENyWOD2iEbvZNqv GWEebS4aYDduPhV9HDDvKjQyjI 82dDHhXGwbRr7qrSgzyEzrXN8a EPCpkcdbl442StTxw5vyWWRz xTPtBHwjIFO4Q25am9X2YKXfUY XrXKI0qYV8hK1rxIcrzlcoxMLc aPvjfeHdlQplQTlaRExkP082 IHRvcDsnPlBhdGllbnQgTmFtZT m0A6LeBqs6IMIvmTddAN4dzKOo DEdrPt3coAhoyYovXS7sIUVj qlfdh539UwYdv9hgZWXwgCYdAF rbIUB2H58go6B5XKRbSDJlSYF3 fLO4zC7jpDxlonkwhNTvmTmz lePpjRzpCYnnKMkuW004PKGcfZ abCgUemlSvFFShnBO3KI10KG45 uRPor8D7wPM6S0DgVFCxzhpc shwkbQD8OQZhFXGsfB00Rv3uaF gyJp6mHDPgAPA6FXXfsQVtO3Tr uY7aJeTyOPWvEOLzC5SrzXUf HBgmF910QVmeJeA4RXImjbWsT1 ShCERiyCqqOmK6u4H9Px8FW6Z5 KR33JR84lVCaj8M8dJC9Q9Se QVBzsoflcenelNI9EDNhCHMxuK 36Ed9lqFfjXm1kZQGaHPC3EIYm cBLgU7HtfZ6tHkUcCKWyZBLx S6NvcJWrUSgiS511VDgyUxF1YQ DuhtShK2TjPWOopEgoThP0s8J6 Xz4NGOr4LM30MO37bWTfd3J5 xXL8K4OsLXYkduzqptrytHQ7IE PtAUEbfZ37Cx1ygTqrFs7lIHDv ZME8IIFmfYYnR2DwfI3fNuWa LMSdQLKrK9SxjTZyIRlrH763XI oaQeF0UUHwfdUdN3NnXFNiyOko AkU4m1J7Xy0XSZWsVK08MMP3 rMV7OZ24JI90V6EpNieznQAgpP U+PHRhYmxlIHdpZHRoPScxMDAl RcAbdVjgNV4hPq9pKGFcLUTg hUpwdXSwZfUco7hyECUiHDomWB 0nqAgrU6BleZC9XORqe1h2Wu55 L77xK9RkrRR+SSRygNE1wIF5 zC7aDyIiXvF3OCkmL898ZpTfmT OwYqbau6nzv3wrjUw4PbT3VWEl eiYusUnfBEH2u3NuDb39D51r IHdpZHRoPSIxNSUiIHZhbGlnbj 7zfA9hRx1+DALnxYR9aLN8dJ4p DqNpQeT0JKqyK412EcXxcSAn Npywi2zfe0gpqBa3LwOvYTXmhy JkvEfhMQF5i9KaPh16Z8DruDlv c2AuHrs6vn62bMAjm7T0zYU7 K9MjNXGolurtoJRuyZdzOD7uAT IosyntIZIdzR2sFCCpX3y3JoAu PnG3XIyaN6XnqmS3IHJaxFNd TAezPFM2Z52as8I7SGDsWBKpRP C0aFX2mZ4sfYpifbqlwDUypXlz guPioHaoVIeaSYdyU493WUBb kUdxXCOuiU2cPAIujKMzxIpuMQ 4qLKOdtjntBfPYJkDDPT9FLWmv UkFORFkgSjwvdGQ+PHRkIHN0 cLejFIncGGPozY9gVCZgP2q0Cd HtTqL1QQzlU0XuSYLnobomHp21 sL9zXcVtXqZ6LCrgD8IqxiM0 JLKkpFUkYFamZZY7K70ln6R1BT YzAMPdQTL3uED0wE5cvVqijuub bGVmdDsgdmVydGljYWwtYWxp E087KGTlvSqtBdW3RhO8YkV2AY S7K6ChDzf5PMCeaGyzGP5oiGRz DTeaTr9suTpzyYlaLF4bTWUr pboxRGVizP7hWLTnbDFtgZfySR 4gPJOjlluap298EhLmIDO5VYHl bAIzW4PxyX5qWvBwPCBoSWWe C2VjaDZtLMngB461PFepYqF4ZD RaopKvX2LrLUWtvNaxJiN0r6A3 Zr41NyJDKNEoyvcjbCZ+PHRk HET3wGnxWZpjOLYgcG5aWGNbU5 r5TiZrHpP0ROxpK6NyDEJczsya Hq56fK5jCwXyKxM0AHviW5Cg sjD2ICQzwNQkQYvaIVP2I54uv0 O8OANoDCNjWQY2xFO4iH6czTaw bjogbGVmdDsgdmVydGljYWwt MPalZ222FUJmvTxmGc2vlSQ5D4 KzGvi9OLQmxCjlOU5pqMPpEYxp Qa3whKdqkIsmAZ9vDCNqqhgn OERhcE1uNNZqrLPboJgiQJ1xRM Sbitelr339IsNfDVZ1JWRxoQNj E9QlrA5vMlAjUFGfCMXiV5Dk dVQnAAdpJ372SLyjZuS5TQEnnb YeV5IcCZWenAgsFgT6i5I8Tm3P lFYhGZKrKL28LS10GM38Y6Rq PjwvdGFibGU+PHRhYmxlIHdpZH StVJryYKZtBoBlaQnvVN7uGd4y NAVxZSMfzRlakWWxBwCzo5xv TLDrKHdcMZ1kiRueX8QswDG3KI Woi4z9Ew97M16jW7MurDY+PGNv aYZ8mNY4bE7aKpQbBzF1YMvb K612VfJmzCMcVcmar7ufr3gyhM d3UgDzRXPmiqIpiIjoDQM9k4Ic Ju41V60oQKdqICBxYMJpIBOi GEUhsHforc7lpO0aKc5+PGNvbC E7sRQ8nI6kLiPxHfA7HZazM237 LlAlrFEbSawrE10rG9CabJV+ HODxSsi4SCKvbKqzYW6axFEaAM rzFr8oHSH0FrWoYfMlQCfjW8Fk RTKkndjoymrgqTE1WHOiLTOe xL66Pd5dsApiZm8oTCTuBMP2TB YcdTEeF6IyoA9yFnOnRRUsJBOz C2VzuBAqZDvoQ839BDleShU9 ZSIpnuLzS1CaZVQbbQomQaF2t0 F4Li8JzKvjjJMwAQ2uTpMdLZa6 Z2DsVja4JPYtuRldEN3gkEBv YIaqFi7tfWdyyOfuVI3uPTKmgx mzo528LkCnc1wkZIDgwQYuXUvb VND7J16zj3Q7XXIwHNOfMNS7 bFS9xQ4orQaiqdsagWFopQovaf SxlMzpBCmsBXkiU899EAUzkTnk BgJMDmt0D6GeMkv3ELYaiWrd OG3znIHmFUbxAx9cbGoisTpgHQ 1qKAOwqfqmp806OrZoo4gaTVNi wRNqKQetYDU1Q20zx1T7FEIu PJAsDOK6dTK2wE9mpEgixnjajI LseGjqhrFjbWdfLIajMDawL016 XJXfuXjlSv5DYfz3U3AjWbg8 GIMdeYehOR3paEZyQIvgMi8iaO heqLztIC9mNXXftjamg065VgIs q0jkYPJeyERiWCcqOEF8A85z y0O9LHRpENKpJXO6bVS9dI6wgU lnbjogbGVmdDsgdmVydGljYWwt ZUtnN158VFAnePyvDgLqoGOp OjwvdGQ+ID05vo65E2CwAcydBg q3GLDxQSE2jYE8sE8qZECtNKet v5P5uKX4J5YnjqUdam4nz9vp YXBz (more content not included)... [facility] Coding Summary.on 10-12-2021 Coding Summary. CD:[id number]:[id number] Gh0bWw +PGhlYWQ+FI2UFTByI62qeRWcw Z0IE0vEMK8NJAHIIAIJRH5OHS5 mnHV8KXiuD9MpkhXm TblbiETkKF27TLr2HGC8kSuoCC nxtD0rkYHxX7a1VvKrCF57zH76 TBsrURJxAtS6PkThmvjouPMy X4okXbRqmPPbBxs+PHRhYmxlIH tuJGTvHUjpVZHpRtKuhWhvYN9r Ri9vOGEePYAogQuraNSeXlTx l0nyMOLfSNazXR3jpSrcF5OfsT V6TDKud7e2Yj40cFH+PHRkIHN0 cXpwOWlrb304GjXpq6hyWUT2 nJHxMXjbRME6R44vz9F9HSOhKH VbLLF4tFP5vO4xeRefwlspG9Rs eQMkUpV3OKF0cLJxjY8wcCba styuoB9jGlg+L95LLI9BKWJROM 2XZlp9T2QtEcunwZS+NP58FIVn AS78zGQfqOCao5lfmEe3KvMq FTHwDJB1iZbuOIuoq3IzJXRsV8 0nxEBtn3D2EWYmrMfmpUKhWyPg uCV0dR9xZChbrfgcx2dcpuqe Qqzcy2yipv36wQ45P32oSExdXL GxWSK8VPLoIPJwrLkaey4mdH1v Ii8+RXdky6kmg7oenHq8AoQc MBWdddDeeFwcOVK9r3NoDm97Y6 VlpAtkc9WpUsn2ck09zTOqt0L7 eMA6OQzhGHAutF0rNKekUzF8 IURdOcJddA46dGFyFZdkQy5ivM rppPmqFV4lSFSujpdpCEBayL1x LBCzdTGijQlbJV6yEIQdtyjv o231NiYxMCD4ZGLecEFqE8OplW 3fNeYuHRKhPDZdC0PmhWMdTNcd A906PIkqCmH1NMXouoIvP3Vd UENgtGliNmG5q0I9Ot2Ki5Xoye waSIN8FVhgLTBjEwSrRyQhJqH2 V0ZuFor1NIWprZpdEQ2bT5Hv ZEEnnlgtvmlwkME9HTMjAQMrcI 08sUQcWGaySz5vq6H5w154HTZd GKFanC17Pi1shDhwPAUjhJPQ jZ3sqojzj6ttnfnnVrJlXRUdKW h8LPf3NXCapThlBcDgRVY5XqI2 ELY3xFUjnI9ejRrnyawxqD9c Oyc+H33ekQ6eUGZ3MFA7lxswYT NdycIiME16HP93S1QeFfbrnQCm bGU+UDVihtKlwXyfTB3mUqOq v2uph8KlYEnqD5ZsJXXsPHwrZq a8QAZiKZL3uJF1zY9uWNCtRZqd o2S2cWV0H3YqtvRrxd7jp2mw PNWlTVmcI94laNKzt5R0MUDhyX O4EMGklRgwYfSdlL35Kod+PGNv aLkyx7YoPnept9tlv4spgSu3 RqEwARWhffBayRwzATZ9w9ZtVu 11I54sZSzgTAUwTQGbTEOvMAYk cQeplu9crD3xKf1+PGNvbCB3 mSL4kL9kWGDsFpI4GPugZ203Ka GvdIAqHusfw5kgf9gbfHh4HdJv VZSrvmCbrXbnVTZ7y2NiZc35 G40sNAqhCTZkBHZeEWJeAGOxxI wuwh9xyB5fAz5+PX4it8nhbq16 aJ79sHG+GFXfSKL1iNphBHzm BTAepB6pSLkyEjV7IIToQxJreT 25sCEnVNsoNd5hqMvmuCjhYD5s MWVmojayj556InAbj8ocXDIg vSYgWEuaFBZ6N03xd9I1ESXvDP WiGVK1aKB3sC2elVpqaduikHMz zJonpuQfiIjwYAlyFIsvY523 IHRvcDsnPlBhdGllbnQgTmFtZT r1N6SfYaz3GKVzwDpxNR2lsXEx BYexSb1vnYwblQwoJQ8gIGQg vpfid276VfRrb1rrIRQlnPOoYK eiFDQ7B10lv5D9QBIaSCCbCJO8 mYV1xC8blGcdknqspBQehVxd qjChjTkuXKtfOYxlO457HIXemO hjDzVzenHcFCKjsNL6NU70MM91 yVFoy9Q8nVJ0H2RvQJLgbrtx qgtkgDT0UPEbSIQocM32Of2esH fjCa3xHYLwMID3KTMbqJTxB1Ao bL1eFiRwNHMbSUHcM9KnhAAg HUhlX943CYzoZaM4UXVyhcBoR7 WrDMNiuThiSqU5u2R7Ae7KZ5F7 ZL17FM25yJMlq3W9dES4O2Mq GWVcnmmbxkfcqMI1MJBqJUWqyA 23Zx0qgLjyZr6oPKZbJEK0YTLv vXFlS4FvbJ2nRcSrLOCgJDKp C3EnwWAlKNgyF506YIhmXaO0YZ ZlsgOoY6ApKFKwbQxiNbU6c2K4 Sb1DKPp5CT87AK82yZPjb6J9 fZS2J7LnZNFyldjnxtfvoBX9ZF EqMNEhgS92Tz1dmJzwTo3yTOVx LJD6IBFyuYXpX1DiwX7tGrLw ZBAkKMCpE5ZvhLDuMWbrF615DC adRjL9BTLyihNbB6TlQGHsrMci GhS3m1Z8Ob4MMRIdIB08UAD4 oGB7GK77OA05Z0PuNanawDGyrR U+PHRhYmxlIHdpZHRoPScxMDAl SeFrbRoaXS8oGf6oMCWfUYXv zKwedAYvIkJrv4yvDNXpOVllKT 4fiPxnR7FtwNP7BNWsm9i2Ci96 M90qT1RtqGT+RSBhlUY2tOQ9 zZ8kCxTuYvP3BWqcH265WmOoaC OuSgsoh8jns4wxkUu9YlC5BBPu wkAtzSjjQCI0u7PmYo46Q27i IHdpZHRoPSIxNSUiIHZhbGlnbj 4qiS6uRq2+QGKkfRF0uPW4gQ3a IwMfBuE8FBfuS598HjXxjMKg Wtlxa2nww4dqkVm9TwPxNSGvwz NnxTzaEBM3q0SuZq97J8DjhTio s1IbHmv9rp87kRXkn1F9eCM4 Z9UbIFEntlcbdIQzaNmfGN6iYM VcuaysDXAkiB5wZZOuE3m8YmRt ClR3IDhaP6JwhnN9MTQmqTVe ZUjfBOV7O56mq8N6JJLxIXObHM U5mHW2nN9qlYtnyokoqIErbQrs fgDwoCwjEChsJCvnJ551EWPx yOpqYNZfbH3mHCOhkNZuhMeyIN 1yNRIauenhEiJLLrWCFD9HPPpt UkFORFkgSjwvdGQ+PHRkIHN0 kSwwQUduUCAvoL5lVYSjC4r9Nz FfLaX0GQzfM4RvBQFwcwkzVg33 hZ9xZhOnDcX3MNcgW0BhnbP5 NDQzkPApAOsuCDA7P43df7R8ZU KyGGGfJSD7yAE0yS6gcCekhlpv bGVmdDsgdmVydGljYWwtYWxp O519XSSpdIegXrR1ApV1NiB5QN F4I5RbIkn1WMNztHnaLH0vlYDw CUaoMt9jjLdowIumHC5vUBZx fghtYTPvsW7rRTNgeRHckDcwPX 7wSXCcizftg110TvYmMNR3RBKt rKMgL0LpaJ5sMhJlQHZxFZRj I0VhyIAqSWiuJ626JVrzSzZ7II MuwfIfV1IeQOTxeBdmCjE4w9X3 Pc17QnVHZFStagifdXB+PHRk OPW5rTzuRLttRZRbyM8xWQKpL1 c6AqKcSiL5MJbpM5RcZIBoigex Yn80uT1lZzXqCdH8PEwlB8Vg pyW2DRUpsAQqNXauFTN3O45wv2 U1EGCuGEQcIJJ1aQR8iX7uoDvz bjogbGVmdDsgdmVydGljYWwt FVchA770EGNncCivWr6jmES3I0 EaMkp9RALzhRnvGD9ylIOkMEcy Rs8xaYqvqBloVJ6hEFIqaziq PYAvpO4xINLwmIAfsHnrIQ0jIH Dpovgky779EdGbHJH8WGWoyYSy A6QcnJ8gJxYuNNHnRIZeQ2Qq uIOuTYvfL028EFepFzH3FBAmcv NrX8MlTGPezDybAtH4z0C8Kx0W TDD2nsHiikt4T4TpAmuneCD+ GD94JCNcHO90qLGtvKCvb4qalL o3WpHrGKPkYKW5ySbjPLkmf1Ao VAHvW47tnERxu2A3RLCjvCwp nWIvNrEraOA9pO1wBEiejivpj8 [id number] IHdpZHRoPSIzMCUiIHZhbGln wv4ezT7yKr5+WNGecEK2mME6eY 7eMgLvBjJ1CRupQ962NzGfeEFu Jpzvn2nkc5qugXr9GiOnKENb sqNrvMhwEZN0l6XcZq81E52vUQ olWCJkARIqHIZhUWIsmIfeym7m gV3oZp8+AO9hx3dyul25tW69 dHI+BCUxPCN3aVykJUccXEBqfX 0wYObhReT7CWWiIhUcjY96pMDu BMseWm9lsYxdqZkoCT4uIOWh wybhc818IiKnv0bpVBYddPObJD lqUCN8X26ps0V3ZGNhPVNrHUN2 zHU8cQ3qzGshkjzwfZQisNsr bhCmjJqgVGarOArvX812ZXOcbS yoSiFkzKFyG8zpeeAEGC0iZvat dGQ+CZBqGMN5nPtyZQsrKKBa mD5lIVRqK2f0TzOpWzC7BGzpJ7 GcrjX4DEUesDIdYELlbMSNeQ5k zprbv5ulwttbDpAmMXLuTXo9 NIs3NWSyzJiqZjZbHNM9JaX5HM S0kFMzyP7rmUagxfofgJ2gVjx+ RklOOjwvdGQ+MCCsDFB2dYru KMhrTSBcpU2mVQDdV2v2HwRyOx P1YIhgE7YboyV6TEJthDJiHJRc wSGOxD7rvacxq0onuupqGnXe VHOuVAv5MLf5CWYcgOpzPpXmUU J3WwH3CIK8qTRjhJ0uvGcpnwds eF6rTfp+TVJOOjwvdGQ+PHRk GMU1yKgsYLgrZGKmnM4pYEIgH3 n6RwNrOcE1POrwK0RggiU8YGAa oAMgRGKhwOOZmX4mwkzwt5um gfvcLqKiCSOiGYf9PSq0MYHagD boTuXqEJU5NaC7UNN5sKBpdH9t xUksmloogQ3uNon+SZK7ROL3 PT72DC30A8ZiXxjteXHytBA+PH RhYmxlIHdpZHRoPScxMDAlJyBz cFjxIC0jNf4rYMGaLBDjkOzr cHNl (more content not included)... [facility] ([facility])on 10-11-2021 SARS-CoV-2 (COVID-19) RNA ANNE+probe Ql (Resp) Not detected Normal Not Detected [facility] Comment on above: Result Comment: This test result should be correlated with clinical presentations and medical history by a healthcare provider to determine its clinical significance. This assay was performed by a reverse transcriptase real-time polymerase chain reaction (rt PCR) method on the [employer] system. This test has been authorized only for the detection of nucleic acid from SARS-CoV-2, not for any other viruses or pathogens. This test has not been FDA cleared or approved. This test has been authorized by FDA under an Emergency Use Authorization (EUA). This test is only authorized for the duration of time the declaration on that circumstances exist justifying the authorization emergency use of in vitro diagnostic tests for detection and/or diagnosis of COVID-19 infection under section 564 (b) (1) of the Act, 21 U.S.C. 360 bbb-3 (b) (1), unless authorization is terminated or revoked sooner. Performed By: #### 2 [id number] #### [facility] [address] [place] [address] SARS-CoV-2 (COVID-19) RNA ANNE+probe Ql (Unsp spec) Pass Normal [facility] Comment on above: Performed By: #### 2 [id number] #### [facility] [address] [place] [address] Specimen source Nom (Unsp spec) Nasal [facility] Comment on above: Performed By: #### 2 [id number] #### [facility] [address] [place] [address] Employed in Healthcare NO Normal [facility] Comment on above: Performed By: #### 2 [id number] #### [facility] [address] [place] [address] First Test Unknown [facility] Comment on above: Performed By: #### 2 [id number] #### [facility] [address] [place] [address] Hospitalized? NO [facility] Comment on above: Performed By: #### 2 [id number] #### [facility] [address] [place] [address] ICU NO Normal [facility] Comment on above: Performed By: #### 2 [id number] #### [facility] [address] [place] [address] ? NO [facility] Comment on above: Performed By: #### 2 [id number] #### [facility] [address] [place] [address] Resides in a Congregate Care Setting NO [facility] Comment on above: Performed By: #### 2 [id number] #### [facility] [address] [place] [address] Symptomatic as defined by CDC Unknown [facility] Comment on above: Performed By: #### 2 [id number] #### [facility] [address] [place] [address] Consent for Treatmenton Consent for Treatment [id number]#[id number]:127 [facility] Physician Orderon 10-11-2021 Physician Order [id number]#[id number]:127 [facility] BMPon 09-28-2021 Anion gap [Moles/Vol] 13 mmol/L Normal 6-16 [facility] Comment on above: Performed By: #### 2 049950, [id number], [id number] #### [facility] [address] [place] [address] Calcium [Mass/Vol] 9.0 mg/dL Normal 8.9-11.1 [facility] Comment on above: Performed By: #### 2 400181, [id number], [id number] #### [facility] [address] [place] [address] Chloride [Moles/Vol] 98 mmol/L Low 101-111 [facility] Comment on above: Performed By: #### 2 912430, [id number], [id number] #### [facility] [address] [place] [address] CO2 [Moles/Vol] 28 mmol/L Normal 21-31 [facility] Comment on above: Performed By: #### 2 504562, [id number], [id number] #### [facility] [address] [place] [address] Creatinine [Mass/Vol] 1.0 mg/dL Normal 0.5-1.3 [facility] Comment on above: Performed By: #### 2 931451, [id number], 8564472 #### [facility] [address] [place] [address] Glucose [Mass/Vol] 119 mg/dL Normal 55-199 [facility] Comment on above: Result Comment: If t his glucose result represents a fasting glucose, interpretation should refer to the following reference range: 55-99 mg/dL Performed By: #### 2 431354, [id number], [id number] #### [facility] [address] [place] [address] Potassium [Moles/Vol] 3.7 mmol/L Normal 3.5-5.3 [facility] Comment on above: Performed By: #### 2 974444, [id number], 2572340 #### [facility] [address] [place] [address] Sodium [Moles/Vol] 135 mmol/L Normal 135-145 [facility] Comment on above: Performed By: #### 2 159964, 65591990, 5107331 #### [facility] [address] [place] [address] Urea nitrogen [Mass/Vol] 23 mg/dL High 5-21 [facility] Comment on above: Performed By: #### 2 610265, [id number], 5598363 #### [facility] [address] [place] [address] Urea nitrogen/Creatinine [Mass ratio] 23 No Units High 10-20 [facility] Comment on above: Performed By: #### 2 732174, [id number], 6163575 #### [facility] [address] [place] [address] CBC w/Indiceson 09-28-2021 Erythrocyte distribution width (RBC) [Ratio] 13.7 % Normal 10.9-14.2 [facility] Comment on above: Performed By: #### 2 698918, 00350541, 7306944 #### [facility] [address] [place] [address] Hematocrit (Bld) [Volume fraction] 44.5 % Normal 37.7-49.0 [facility] Comment on above: Performed By: #### 2 452065, [id number], 2316869 #### [facility] [address] [place] [address] Hemoglobin (Bld) [Mass/Vol] 15.1 g/dL Normal 13.5-17.5 [facility] Comment on above: Performed By: #### 2 057184, [id number], 2602285 #### [facility] [address] [place] [address] MCH (RBC) [Entitic mass] 30.7 pg Normal 27.0-34.0 [facility] Comment on above: Performed By: #### 2 737509, [id number], 6419286 #### [facility] [address] [place] [address] MCHC (RBC) [Mass/Vol] 33.9 g/dL Normal 31.4-36.0 [facility] Comment on above: Performed By: #### 2 232634, 18069139, 4780031 #### [facility] [address] [place] [address] MCV (RBC) [Entitic vol] 90.8 fL Normal 80.0-100.0 [facility] Comment on above: Performed By: #### 2 514033, 12479012, 7214646 #### [facility] [address] [place] [address] Platelet mean volume (Bld) [Entitic vol] 7.1 fL Normal 6.4-10.8 [facility] Comment on above: Performed By: #### 2 255304, 05554156, 2558107 #### [facility] [address] [place] [address] Platelets (Bld) [#/Vol] 196.0 E9/L Normal 150.0-500. 0 [facility] Comment on above: Performed By: #### 2 147648, 23224007, 0760944 #### [facility] [address] [place] [address] RBC (Bld) [#/Vol] 4.9 E12/L Normal 4.3-5.9 [facility] Comment on above: Performed By: #### 2 117642, 38053188, 0750527 #### [facility] [address] [place] [address] WBC corrected for nucl RBC Auto (Bld) [#/Vol] 5.9 E9/L Normal 4.0-11.0 [facility] Comment on above: Performed By: #### 2 849120, 32979375, 1617677 #### [facility] [address] [place] [address] Consent for Treatmenton 09-10 Consent for Treatment [id number]:127 [facility] XR Chest 2 Viewson XR Chest 2 Views Exam Date/Time: 09/28/2021 08:27 EST Reason for Exam: PRE OP, Unilateral primary osteoarthritis, right knee Report IMPRESSION: NO EVIDENCE OF ACTIVE CHEST DISEASE. CLINICAL HISTORY: PRE OP, Unilateral primary osteoarthritis, right knee. COMMENT: The heart is normal in size. The mediastinum is unremarkable. The lungs appear clear. No infiltration nor pleural effusion is evident. There is prominent thoracic kyphosis. There are chronic anterior wedge deformities of some of the mid thoracic vertebral bodies. FINAL REPORT Dictated: 09/28/2021 10:38 am Jero Banks M.D. Signed (Electronic Signature): 09/28/2021 10:38 am Signed by: Jero Banks M.D. Transcribed by: ORLY Technologist: SB [facility] eGFRon 09-28-2021 GFR/1.73 sq M.predicted among blacks MDRD (S/P/Bld) [Vol rate/Area] mL/min/{1.73_m2} Normal >=59 [facility] Comment on above: Order Comment: Order added by Discern Expert. Result Comment: eGFR is race adjusted. AA=. Performed By: #### 2 076948, 04787236, 9858117 #### [facility] [address] [place] [address] GFR/1.73 sq M.predicted among non-blacks MDRD (S/P/Bld) [Vol rate/Area] mL/min/{1.73_m2} Normal >=59 [facility] Comment on above: Order Comment: Order added by Discern Expert. Result Comment: [employer] sunday kidney disease could be indicated at eGFR's of less than 60 mL/min/1.73m2. Kidney failure is indicated at less than 15 mL/min/1.73m2. Performed By: #### 2 781310, 48760642, 1191944 #### [facility] [address] [place] [address] Physician Orderon 08-31-2021 Physician Order [id number]#1.00CD:127 [facility] Comp Metabolic Panelon 09-30 Albumin [Mass/Vol] 4.5 g/dL Normal 3.9-4.9 [facility] ALP [Catalytic activity/Vol] 72 U/L Normal 38-113 [facility] ALT [Catalytic activity/Vol] 16 U/L Normal 10-54 [facility] Anion gap [Moles/Vol] 13 mmol/L Normal 9-18 [facility] AST [Catalytic activity/Vol] 14 U/L Normal 14-40 [facility] Bilirubin [Mass/Vol] 0.3 mg/dL Normal 0.2-1.3 [facility] Calcium [Mass/Vol] 9.2 mg/dL Normal 8.5-10.2 [facility] Chloride [Moles/Vol] 99 mmol/L Normal 97-105 [facility] CO2 [Moles/Vol] 25 mmol/L Normal 22-30 [facility] Creatinine [Mass/Vol] 0.81 mg/dL Normal 0.73-1.22 [facility] eGFR- Amer. >60 Normal [facility] GFR/1.73 sq M predicted among non-blacks MDRD (S/P/Bld) [Vol rate/Area] mL/min/{1.73_m2} Normal [facility] Comment on above: Result Comment: eGFR (Estimated GFR) Units of measure: mL/min/1.73 meters squared eGFR is derived from the reexpressed MDRD Study equation using the following parameters: serum creatinine, age, gender and race. The creatinine assay has been calibrated to be traceable to IDMS. An eGFR <60 mL/min/1.73m2 for >3 months is consistent with chronic kidney disease. Refer to KDOQI guidelines for clinical interpretation. In patients with unstable renal function, e.g. those with acute kidney injury, the eGFR may not accurately reflect actual GFR. Glucose [Mass/Vol] 163 mg/dL High 74-99 [facility] Comment on above: Result Comment: The [place] Diabetes [employer] (ADA) provides guidance for cutoff values for fasting glucose and random glucose. The ADA defines fasting as no caloric intake for at least 8 hours. Fasting plasma glucose results between 100 to 125 mg/dL indicate increased risk for diabetes (prediabetes). Fasting plasma glucose results greater than or equal to 126 mg/dL meet the criteria for diagnosis of diabetes. In the absence of unequivocal hyperglycemia, results should be confirmed by repeat testing. In a patient with classic symptoms of hyperglycemia or hyperglycemic crisis, random plasma glucose results greater than or equal to 200 mg/dL meet the criteria for diagnosis of diabetes. Reference: Standards of Medical Care in Diabetes 2016, [place] [employer]. Diabetes Care. 2016.39(Suppl 1). Potassium [Moles/Vol] 3.6 mmol/L Low 3.7-5.1 [facility] Protein [Mass/Vol] 6.4 g/dL Normal 6.3-8.0 [facility] Sodium [Moles/Vol] 137 mmol/L Normal 136-144 [facility] Urea nitrogen [Mass/Vol] 20 mg/dL Normal 9-24 [facility] PSA, Diagn[employer]icon 09-30-2019 PSA, Diagnostic <0.03 Normal 0.00-2.59 [facility] Comment on above: Result Comment: Brittney winn PSA test methodology used is the Electrochemiluminescence Immunoassay. For an individual patient, the significance of a PSA level should be interpreted in a broad clinical context, including age, race, family history, digital rectal exam, prostate size, results of prior testing (prostate biopsy, free PSA, PCA3), and use of 5-alpha reductase inhibitors. Considering the high incidence of asymptomatic cancer in the general population that may not pose an ultimate risk to a patient, the decision to recommend urological evaluation or prostate biopsy should be individualized after consideration of all these factors. REFERENCE: Marcie Anne M.D., M.P.H., Mateusz Crooks M.D., Ph.D., Jero Hernandez M.D., Jenny Schmidt, M.P.H., Kathy Wilkerson Sc.D. Effect of Verification Bias on Screening for Prostate Cancer by Measurement of Prostatic Specific Antigen. N Engl J Med 2003,349:335-42. Performed By: #### P SA ####[facility] [id number], [place] [phone] Remote CBCDIF (for [facility] use o nly)on 09-30-2019 Abs Baso <0.03 Normal 0.00-0.10 [facility] Abs Dundy 0.46 k/uL Normal 0.00-0.86 [facility] Abs Neut 3.33 k/uL Normal 1.45-7.50 [facility] Basophils/100 WBC (Bld) 0.4 % Normal [facility] Eosinophils (Bld) [#/Vol] 0.21 10*3/uL Normal 0.00-0.45 [facility] Eosinophils/100 WBC (Bld) 4.1 % Normal [facility] Erythrocyte distribution width (RBC) [Ratio] 12.6 % Normal 11.5-15.0 [facility] Hematocrit (Bld) [Volume fraction] 37.8 % Low 39.0-51.0 [facility] Hemoglobin (Bld) [Mass/Vol] 12.9 g/dL Low 13.0-17.0 [facility] Lymphocytes (Bld) [#/Vol] 1.12 10*3/uL Normal 1.00-4.00 [facility] Lymphocytes/100 WBC (Bld) 21.8 % Normal [facility] MCH (RBC) [Entitic mass] 30.9 pG Normal 26.0-34.0 [facility] MCHC (RBC) [Mass/Vol] 34.1 g/dL Normal 30.5-36.0 [facility] MCV (RBC) [Entitic vol] 90.6 fL Normal 80.0-100.0 [facility] Monocytes/100 WBC (Bld) 8.9 % Normal [facility] Neutrophils/100 WBC (Bld) 64.8 % Normal [facility] Platelet mean volume (Bld) [Entitic vol] 8.7 fL Low 9.0-12.7 [facility] Platelets (Bld) [#/Vol] 166 10*3/uL Normal 150-400 [facility] RBC (Bld) [#/Vol] 4.17 10*6/uL Low 4.20-6.00 [facility] WBC (Bld) [#/Vol] 5.14 10*3/uL Normal 3.70-11.00 [facility] NM PET/CT PROSTATE WBon 09-10 NM PET/CT PROSTATE WB * * *Final Report* * * DATE OF EXAM: Sep 22 2019 12:59PM MCN 0093 - NM PET/CT PROSTATE WB / PROCEDURE REASON: Malignant neoplasm of prostate (HCC) * * * * Physician Interpretation * * * * WHOLE BODY F-18 FLUCICLOVINE PET/CT HISTORY AND INDICATION: 1. 64 years old Male with Malignant neoplasm of prostate (HCC) 2. Subsequent treatment strategy. TECHNIQUE: Diagnostic CT scan: None. Diagnostic PET-CT scan: Approximately 60 minutes following the IV administration of F-18 Fluciclovine, PET imaging from the skull-base through the proximal thigh was performed. An unenhanced low dose CT performed for attenuation correction and anatomic localization. Fused PET-CT data sets in the coronal, sagittal, and axial planes were reviewed. RADIATION DOSE: F-18 Fluciclovine Dose: 11.[address] Radiation dose: Integrated Dose-length product (DLP) for this visit =231 mGy*cm. CT Dose Reduction Employed: Automatic exposure control used (AED) COMPARISON: Diagnostic CT: CT chest 06/28/19. F-18 Fluciclovine PET-CT: None RESULT: For reference purposes: Bone marrow uptake: Max SUV 3.3; Blood pool uptake: Max SUV 1.5 Head and Neck : No evidence of focal uptake to suggest Fluciclovine avid neoplastic process Chest: No evidence of focal uptake to suggest Fluciclovine avid neoplastic process. 2 mm nodule in the left upper lobe is too small to characterize. No pleural or pericardial effusion. Cardiac and mediastinal structures are grossly unremarkable, except for mild atherosclerotic calcifications. Abdomen: Liver and biliary system: No mass or biliary dilatation. Physiologic FDG uptake but no activity to suggest neoplasm. Spleen: Normal size and no masses. No abnormal enhancement. Physiological Fluciclovine uptake but no activity to suggest neoplasm. Pancreas: Normal size and no masses. No abnormal enhancement. Physiological Fluciclovine uptake but no activity to suggest neoplasm. Adrenal glands: Normal size and no masses. No abnormal enhancement. Physiological Fluciclovine uptake but no activity to suggest neoplasm. Kidneys: Normal size and no masses. No abnormal enhancement. Physiological Fluciclovine uptake but no activity to suggest neoplasm. Retroperitoneum: No adenopathy or abdominal aortic aneurysm. Peritoneum and GI tract: No bowel wall thickening or dilatation. Physiological Fluciclovine uptake but no activity to suggest neoplasm. Abdominal wall: normal anatomy. Physiological Fluciclovine uptake but no activity to suggest neoplasm. Ascites: None Pelvis: Pelvic Organ: Mild diffuse uptake in the prostate. No focal lesions. Lymph nodes: No adenopathy. Ascites: None Other: none Extremities/Skeleton: No destructive lesions. Age associated joint degenerative changes. Physiological Fluciclovine uptake but no activity to suggest neoplasm. IMPRESSION: 1. NECK: No evidence of focal uptake to suggest Fluciclovine avid neoplastic process 2. CHEST: No evidence of focal uptake to suggest Fluciclovine avid neoplastic process 3. ABDOMEN/PELVIS: Mild diffuse uptake in the prostate. No other Fluciclovine avid neoplastic process. 4. EXTREMITIES/SKELETON: No evidence of focal uptake to suggest Fluciclovine avid neoplastic process Demolition Worker: DURGA Transcribe Date/Time: Sep 22 2019 1:09P Dictated by : MALINDA BONE MD This examination was interpreted and the report reviewed and electronically signed by: MALINDA BONE MD on Sep 22 2019 1:24PM EST [id number] Normal [facility] PROGRESSon 09-22-2019 PROGRESS HNO ID: [id number] Author: Effie Phelps [facility] Service: ? Author Type: ? Type: Progress Notes Filed: 09/22/2019 12:44 PM Note Text: RADIOLOGY SERVICE PROGRESS NOTE SERVICE DATE: 09/22/2019 SERVICE TIME: 12:42 PM PATIENT IDENTITY VERIFICATION COMPLETED USING TWO (2) STANDARD IDENTIFIERS: Name and Date of confirmed by patient verbally PATIENT GENDER DATA: .male ALLERGIES: Reviewed and unchanged MEDICATIONS REVIEWED: Yes PATIENT RELEVANT IMPLANT DATA REVIEWED: Not Applicable CREATININE: Creatinine Date Value Ref Range Status 06/28/2019 1.01 0.73 - 1.22 mg/dL Final eGFR-All Other Races Date Value Ref Range Status 06/28/2019 >60 . Final Comment: eGFR (Estimated GFR) Units of measure: mL/min/1.73 meters squared eGFR is derived from the reexpressed MDRD Study equation using the following parameters: serum creatinine, age, gender and race. The creatinine assay has been calibrated to be traceable to IDMS. An eGFR <60 mL/min/1.73m2 for >3 months is consistent with chronic kidney disease. Refer to KDOQI guidelines for clinical interpretation. In patients with unstable renal function, e.g. those with acute kidney injury, the eGFR may not accurately reflect actual GFR. eGFR- Date Value Ref Range Status 06/28/2019 >60 Final P.O.C.T. RESULTS: N/A September 22, [address] PERFORMED: No IV SITE: Ambulatory: A peripheral IV was started in the Right antecubital site with a Angio cath: 22 gauge. POST EXAM PIV STATUS: Discontinued PROCEDURE TYPE: NM INJECT: PET/CT BODY SCAN. 11.9 mCi F18 AXUMIN. No other medications given.. ADMINISTRATION TIME: 1228 PATIENT DISCHARGED TO: Ambulatory patient, left NM department area. A Diagnostic radioactive procedure has taken place, with no further precautions necessary other than routine body substance precautions. More information regarding radiation safety can be found using this link: [email or web address] [email or web address]. pdf SIGNATURE: Effie Phelps [facility] PATIENT NAME: Mahendra Vaguhn DATE: September 22, 2019 TIME: 12:42 PM PAGER/CONTACT #: Sarahy [facility] Shahram 09-15-2019 KAREN Telephone (HEMASA) -- MAHENDRA VAUGHN ([id number]) 1955 M IPA Date Time Provider Department 09/15/19 VEE CASTRO) RYAN During your visit today, we recorded the following information about you: Jing Ascencio RN, RN 09/15/2019 2:18 PM Signed Received call from pt's , Sarah stating pt is scheduled to have a second opinion at [facility] but they are requesting he have an Axumin PET scan done prior to appt. They are willing to go to [facility] to have test done. SIXTO: Please place order if agreeable. FARA Pavon MD 09/15/2019 2:25 PM Signed ordered Jing Ascencio RN, RN 09/15/2019 2:28 PM Signed Clerical: Please schedule pt for Axumin PET scan at [facility]. Thank you. Jing Ascencio RN Carmenza Ramon [facility] 09/15/2019 2:50 PM Signed Sent form over for [facility] for pet scan Allergies As of Date: 09/15/2019 Noted Allergy Reaction BACTRIM (SULFAMETHOXAZOLE-TRIMETH* 07/18/2016 2 - Rash Date Reviewed: 08/27/2019 Reviewed by: Kendra Martinez - Fully Assessed Reason for Visit: Scans [867] Visit Diagnosis:Malignant neoplasm of prostate (HCC) [C61] Order(s):NM PET/CT PROSTATE WHOLE BODY IMAGING [[id number]] Order #: [id number] FUTURE Prescriptions as of 09/15/2019 Sig: OMEPRAZOLE 20 MG CAPSULE,CHASTITY* Take 20 mg by mouth once jose* LISINOPRIL 20 MG-HYDROCHLOROT* Take 1 tablet by mouth once d* CETIRIZINE ORAL Take 10 mg by mouth once jose* Problem List As Of Date 09/15/2019 Noted Resolved Prostate cancer (HCC) [C61] INVALID FOR* History of prostate cancer [Z85.46] INVALID FOR* Rising PSA following treatment for malignant ne*INVALID FOR* Benign prostatic hyperplasia with lower urinary*INVALID FOR* Encounter Status:Closed by VEE CASTRO MD on 09/15/19 Normal [facility] CNOVon 08-27-2019 CNOV Office Visit (UROLEU ) -- VAUGHNMAHENDRA SERRANO ([id number]) [address] [facility] Date Time Provider Department 08/27/19 9:45 AM KENDRA MARTINEZ During your visit today, we recorded the following information about you: Kendra Martinez MD 08/27/2019 10:16 AM Signed FOLLOW UP MALE PATIENT CLINICAL HISTORY: I initially met Mr. Vaughn on 08/27/2019 for a referral by Dr. Graf for biopsy proven radiation failure CaP as follows; 64 y/o male who presents for consultation regarding prostate cancer. Diagnosed with Gl 7 CaP in 2009, treated with radiation therapy. He has not obtained a prostate biopsy since starting radiation. Has elevated PSA, most recently 3.16 (05/17/19). 07/27/2019 ?8:03 AM - Interface, Results II Results Specimen originated from [facility] Specimen #: [id number] Submitting Physician: TINO GRAF M.D. ?(Q10) FINAL DIAGNOSIS 1. Left base prostate, biopsy (A) - Prostatic adenocarcinoma with evidence of androgen deprivation effect involving 30% of one of two biopsy cores. - The maximum length of the carcinoma in the biopsy core is 4 mm. 2. Left mid prostate, biopsy (B) - Prostatic adenocarcinoma with evidence of androgen deprivation effect involving 30% of one of two biopsy cores. - The maximum length of the carcinoma in the biopsy core is 4 mm. 3. Left apex prostate, biopsy (C) - Prostatic adenocarcinoma with evidence of androgen deprivation effect involving 25% of one of two biopsy cores. - The maximum length of the carcinoma in the biopsy core is 2.5 mm. 4. Left seminal vesicle, biopsy (D) - Benign seminal vesicle. 5. Right base, right mid, right apex prostate, biopsy (E, F, G) - Benign prostatic parenchyma. 6. Right seminal vesicle, biopsy (H) - Benign seminal vesicle. Prostate Cancer Biopsy Summary Number of cores examined: 14 Number of cores positive: 3 Highest Grade Group: Not applicable (androgen deprivation effect present) Highest % of core involvement: 30% Cribriform pattern 4: Not applicable (androgen deprivation effect present) Intraductal carcinoma: Absent JLM/lbk 07/26/2019 RESULT: Prostate: Dimensions: 4.2 x 3.2 x 3.4 cm corresponding to a volume of approximately 21.8 cc. Peripheral zone: No focal abnormalities with imaging features concerning for prostate cancer. Transition zone: No focal lesions with imaging features suspicious for clinically significant disease. Central zone: The central zone is not well seen. Neurovascular bundle: Unremarkable. Seminal vesicles: Unremarkable. Adjacent Organ Involvement: n/a Lymphadenopathy: No pelvic lymphadenopathy. Bladder: Unremarkable. Pelvic bones: No suspicious pelvic osseous lesions. Other Findings: Colonic diverticulosis. PSA Latest Ref Rng AND Units 12/07/2013 06/16/2014 07/20/2015 07/18/2016 07/17/2017 PSA 0.00 - 2.59 ng/mL 0.58 0.77 0.68 0.56 0.86 States last PSA 3.1 ng/ml (outside). Dated 05/2019 Disease Specificity: Acuity: Chronic Severity: Severe, 07/20 Anatomic Site: Bladder, Laterality: N/A Prostate, Laterality: N/A Underlying Condition/Causal Agent: Primary Secondary Associated Conditions/Manifestations: Biopsy proven recurrent CaP Lupron 07/01/2019 MRI no evid periprostatic dz Neg SV bx Prostate vol 21.8 cc's PROBLEM LIST ACTIVE PROBLEM LIST Prostate Cancer (Hcc) History of Prostate Cancer Rising Psa Following Treatment for Malignant Neoplasm of Prostate Benign Prostatic Hyperplasia With Lower Urinary Tract Symptoms Symptoms from the lower urinary tract are consistent with: Dysuria: No. Hematuria: No. Urgency: No. Urge incontinence: No. Frequency day/night: Yes. Nocturia: No. Straining to urinate: No. Incomplete emptying: No. Decreased force/flow: Yes. Urge incontinence: No. Hesitancy: Yes. VITALS: There were no vitals taken for this visit. ALLERGIES: Bactrim [Sulfamethoxazole-Trimetho prim] MEDICATIONS: Current Outpatient Medications Medication Sig Dispense Refill - omeprazole (PRILOSEC) 20 mg capsule Take 20 mg by mouth once daily. Every other day - lisinopril-hydrochlorothia zide (PRINZIDE, ZESTORETIC) 20-25 mg per tablet Take 1 tablet by mouth once daily. - CETIRIZINE HCL (CETIRIZINE ORAL) Take 10 mg by mouth once daily. No current facility-administered medications for this visit. RECENT TREATMENT: EBRT CaP CURRENT : DysuriaNo Hematuria No Urgency No Nocturia 2 times per night Yes Straining to urinate No Decreased force/flow Yes Hesitancy Yes Incomplete Emptying:No Incontinence/Leakage:No Double void behavior No UTI No Feeling of incomplete empty No Abnormal Erections:No EXAMINATION:PHYSICAL EXAMINATION: PHYSICAL EXAMINATION: 5'8, weight 208 pounds General appearance: Well appearing, alert, in no acute distress, well-hydrated, well nourished. Skin: Skin color, texture, turgor normal, no suspicious rashes or lesions Head: Normocephalic, no masses, lesions, tenderness or abnormalities Eyes: Anicteric sclera. Pupils are equally round and reactive to light. Extraocular movements are intact. Neck: Supple, no adenopathy Lungs: not examined Heart: Not examined Abdomen: Normal abdominal exam, Abdomen soft, obese, non-tender. Bowel sounds normal. Cannot palpate masses, organomegaly :Penis is normal and circumcised circumcised. Both testes are retracted, normal, non-tender and free of induration epididymal tenderness. No inguinal hernia present. No hydrocele in either hemiscrotum. RECTAL EXAM: NST , No masses, Stool for guiaic not indicated and Prostate firm, flat consistent with radiated gland Extremities: Nl RECENT LABS: UA today auto dip: US PVR today IMPRESSION: 1. Biopsy proven recurrent CaP 2. Lupron 07/01/2019 3. MRI no evid periprostatic dz 4. Neg SV bx 5. Prostate vol 21.8 cc's PMH: HTN No CAD, No MT Never smoked No DM, No Thyroid No neurovasc Hx, No neurologic Hx Overweight 1. Prostate cancer (HCC) - ICD9: 185, ICD10: C61 (primary diagnosis) 2. History of external beam radiation therapy - ICD9: V15.3, ICD10: Z92.3 3. Overweight - ICD9: 278.02, ICD10: E66.3 Detailed discussion, 25 minutes regarding biopsy proven radiation failure CaP during which I described the implications, PSA range for successful salvage therapy based on published reports for ablative techniques, size limitation as well as tumor locations for such interventions and expectations of procedure related morbidity and outcomes. Full discussion of implications of seminal vesical status in decision making and associated outcomes if disease is in seminal vesicals (12 month failure 50%) ? If seminal vesicles are not involved and disease is localized to the prostate, and PSA in < 5.0 ng/ml, published reports on salvage cryoablation are consistent with 67% 36 month disease free survival rates. Longer term disease free survival is expected based on the peer review data and this is a viable option based on current clinical data. PLAN: 1. Offered salvage prostate cryoblation 2. All RBA discussed in detail as well as potential need for additional therapy in the event of biochemical failure. 3. Discussed nutritional supplement intervention. 4. Patient to decide on course of radiation 30 min face to face counseling Complex decision making. MD Danielle Patton Ma 08/27/2019 10:52 AM Signed Addended by: DANIELLE ANDERSON MA on: 08/27/2019 10:52 AM Modules accepted: Orders Danielle Anderson Ma 08/27/2019 11:42 AM Signed Addended by: DANIELLE ANDERSON MA on: 08/27/2019 11:42 AM Modules accepted: Orders Referring Provider: TINO GRAF [[id number]] Allergies As of Date: 08/27/2019 Noted Allergy Reaction BACTRIM (SULFAMETHOXAZOLE-TRIMETH* 07/18/2016 2 - Rash Date Reviewed: 08/27/2019 Reviewed by: Kendra Martinez - Fully Assessed Reason for Visit: Prostate Cancer [590] Primary Visit Diagnosis:Prostate cancer (HCC) [C61] Other Visit Diagnoses:History of external beam radiation therapy [Z92.3] Overweight [E66.3] 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] Order(s):CBC + DIFF [SQCBCDIF] Order #: [id number] FUTURE BASIC METABOLIC PNL [SQBMP] Order #: [id number] FUTURE PROTHROMBIN TIME/PT [SQPT] Order #: [id number] FUTURE XR CHEST 2V FRONTAL/LAT [5966010] Order #: [id number] FUTURE ECG COMPLETE [ECG01] Order #: [id number] FUTURE SURGICAL REQUEST - ELECTIVE [5049154] Order #: [id number]: 1 Prescriptions as of 08/27/2019 Sig: OMEPRAZOLE 20 MG CAPSULE,CHASTITY* Take 20 mg by mouth once jose* LISINOPRIL 20 MG-HYDROCHLOROT* Take 1 tablet by mouth once d* CETIRIZINE ORAL Take 10 mg by mouth once jose* Problem List As Of Date 08/27/2019 Noted Resolved Prostate cancer (HCC) [C61] INVALID FOR* History of prostate cancer [Z85.46] INVALID FOR* Rising PSA following treatment for malignant ne*INVALID FOR* Benign prostatic hyperplasia with lower urinary*INVALID FOR* Disposition: Return for follow up. Follow-up and Disposition History Recorded Encounter Status:Closed by KENDRA MARTINEZ MD on 08/27/19 [facility] CNOV Office Visit (UROLMN ) -- MAHENDRA VAUGHN ([id number]) 1955 [facility] Date Time Provider Department 08/27/19 7:30 AM CHILO BONDS During your visit today, we recorded the following information about you: Pulse Blood pressure Weight 62/minute 141/65 94.3 kg Chilo Bonds MD 08/27/2019 8:17 AM Signed [facility] ESTABLISHED PATIENT NOTE PATIENT INFO: Mahendra Vaughn PCP: Chilo Rodriguez II, MD UROLOGY DIAGNOSES: 1. Left testicular pain - ICD9: 608.9, ICD10: N50.812 CHIEF COMPLAINT: Testicular pain HPI: Patient returns for continuing evaluation and management. Several year history left testicular pain. Only treated with NSAIDs. Comes and goes. Recently developed on right as well. Activity dependent. US essentially normal, left epi slightly enlarged. SIGNS and SYMPTOMS: PMH: PAST MEDICAL HISTORY Diagnosis Date - Hypertension - Prostate cancer (HCC) 05/10/2014 - Prostate cancer (HCC) PSH: PAST SURGICAL HISTORY Procedure Laterality Date - HERNIA REPAIR HX 03/01/2014 - TONSILLECTOMY HX - VASECTOMY SH: Social History Socioeconomic History Marital status: Spouse name: Not on file Number of children: Not on file Years of education: Not on file Highest education level: Not on file Occupational History Not on file Social Needs Financial resource strain: Not on file Food insecurity: Worry: Not on file Inability: Not on file Transportation needs: Medical: Not on file Non-medical: Not on file Tobacco Use Smoking status: Never Smoker Smokeless tobacco: Never Used Substance and Sexual Activity Alcohol use: No Drug use: Never Sexual activity: Not on file Lifestyle Physical activity: Days per week: Not on file Minutes per session: Not on file Stress: Not on file Relationships Social connections: Talks on phone: Not on file Gets together: Not on file Attends christian service: Not on file Active member of club or organization: Not on file Attends meetings of clubs or organizations: Not on file Relationship status: Not on file Intimate partner violence: Fear of current or ex partner: Not on file Emotionally abused: Not on file Physically abused: Not on file Forced sexual activity: Not on file Other Topics Concerns: Not on file Social History Narrative Not on file FH: FAMILY HISTORY Problem Relation Age of Onset - Prostate Cancer Father mets to bones - Prostate Cancer Brother - Leukemia Mother 59 - Cancer Paternal Grandfather unknown type - Cancer Other maternal first cousin, unknown type - other (lymphoma) Maternal Uncle ROS: REVIEW OF SYSTEMS CHANGES SINCE LAST APPOINTMENT: unchanged MEDICATIONS: omeprazole (PRILOSEC) 20 mg capsule, Take 20 mg by mouth once daily. Every other day lisinopril-hydrochlorothia zide (PRINZIDE, ZESTORETIC) 20-25 mg per tablet, Take 1 tablet by mouth once daily. CETIRIZINE HCL (CETIRIZINE ORAL), Take 10 mg by mouth once daily. No current facility-administered medications for this visit. PHYSICAL EXAM: BP 141/65 (BP Site: Left Arm, BP Position: Sitting, BP Cuff Size: Large Adult) Pulse 62 Wt 94.3 kg (208 lb) BMI 32.61 kg/m? Body mass index is 32.61 kg/m?. General Appearance/ Constitutional: Well developed, well nourished, and in no apparent distress (MALE): Penis: Normal without external lesions Testicles: Tender bilaterally. Not limited to epididymis. UROLOGICAL DATA: COSI: =8 DIAGNOSES: 1. Left testicular pain - ICD9: 608.9, ICD10: N50.812 IMPRESSION/PLAN: Chronic testicular pain, now bilateral. Intermittent, some features of MSK. Discussed cord block, pain management. Going to treat prostate cancer first and then see how bothersome testicular symptoms are Chilo Bonds MD I spent approximately 25 minutes in this visit, with more than 50% of the time devoted to patient discussion, counseling, review of records and/or coordination of care. Referring Provider: SELF [[id number]] Allergies As of Date: 08/27/2019 Noted Allergy Reaction BACTRIM (SULFAMETHOXAZOLE-TRIMETH* 07/18/2016 2 - Rash Date Reviewed: 08/27/2019 Reviewed by: Carmelina Wiseman - Fully Assessed Primary Visit Diagnosis:Left testicular pain [N50.812] Prescriptions as of 08/27/2019 Sig: OMEPRAZOLE 20 MG CAPSULE,CHASTITY* Take 20 mg by mouth once jose* LISINOPRIL 20 MG-HYDROCHLOROT* Take 1 tablet by mouth once d* CETIRIZINE ORAL Take 10 mg by mouth once jose* Problem List As Of Date 08/27/2019 Noted Resolved Prostate cancer (HCC) [C61] INVALID FOR* History of prostate cancer [Z85.46] INVALID FOR* Rising PSA following treatment for malignant ne*INVALID FOR* Benign prostatic hyperplasia with lower urinary*INVALID FOR* Encounter Status:Closed by CHILO BONDS MD on 08/27/19 [facility] PROGRESSon 08-27-2019 PROGRESS HNO ID: [id number] Author: Kendra Martinez Service: ? Author Type: Physician Type: Progress Notes Filed: 08/27/2019 10:16 AM Note Text: FOLLOW UP MALE PATIENT CLINICAL HISTORY: I initially met Mr. Vaughn on 08/27/2019 for a referral by Dr. Graf for biopsy proven radiation failure CaP as follows; 64 y/o male who presents for consultation regarding prostate cancer. Diagnosed with Gl 7 CaP in 2009, treated with radiation therapy. He has not obtained a prostate biopsy since starting radiation. Has elevated PSA, most recently 3.16 (05/17/19). 07/27/2019 ?8:03 AM - Interface, Results II Results Specimen originated from [facility] Specimen #: [id number] Submitting Physician: TINO GRAF M.D. ?(Q10) FINAL DIAGNOSIS 1. Left base prostate, biopsy (A) - Prostatic adenocarcinoma with evidence of androgen deprivation effect involving 30% of one of two biopsy cores. - The maximum length of the carcinoma in the biopsy core is 4 mm. 2. Left mid prostate, biopsy (B) - Prostatic adenocarcinoma with evidence of androgen deprivation effect involving 30% of one of two biopsy cores. - The maximum length of the carcinoma in the biopsy core is 4 mm. 3. Left apex prostate, biopsy (C) - Prostatic adenocarcinoma with evidence of androgen deprivation effect involving 25% of one of two biopsy cores. - The maximum length of the carcinoma in the biopsy core is 2.5 mm. 4. Left seminal vesicle, biopsy (D) - Benign seminal vesicle. 5. Right base, right mid, right apex prostate, biopsy (E, F, G) - Benign prostatic parenchyma. 6. Right seminal vesicle, biopsy (H) - Benign seminal vesicle. Prostate Cancer Biopsy Summary Number of cores examined: 14 Number of cores positive: 3 Highest Grade Group: Not applicable (androgen deprivation effect present) Highest % of core involvement: 30% Cribriform pattern 4: Not applicable (androgen deprivation effect present) Intraductal carcinoma: Absent SEBAS/coral 07/26/2019 RESULT: Prostate: Dimensions: 4.2 x 3.2 x 3.4 cm corresponding to a volume of approximately 21.8 cc. Peripheral zone: No focal abnormalities with imaging features concerning for prostate cancer. Transition zone: No focal lesions with imaging features suspicious for clinically significant disease. Central zone: The central zone is not well seen. Neurovascular bundle: Unremarkable. Seminal vesicles: Unremarkable. Adjacent Organ Involvement: n/a Lymphadenopathy: No pelvic lymphadenopathy. Bladder: Unremarkable. Pelvic bones: No suspicious pelvic osseous lesions. Other Findings: Colonic diverticulosis. PSA Latest Ref Rng AND Units 12/07/2013 06/16/2014 07/20/2015 07/18/2016 07/17/2017 PSA 0.00 - 2.59 ng/mL 0.58 0.77 0.68 0.56 0.86 States last PSA 3.1 ng/ml (outside). Dated 05/2019 Disease Specificity: Acuity: Chronic Severity: Severe, 07/20 Anatomic Site: Bladder, Laterality: N/A Prostate, Laterality: N/A Underlying Condition/Causal Agent: Primary Secondary Associated Conditions/Manifestations: Biopsy proven recurrent CaP Lupron 07/01/2019 MRI no evid periprostatic dz Neg SV bx Prostate vol 21.8 cc's PROBLEM LIST ACTIVE PROBLEM LIST Prostate Cancer (Hcc) History of Prostate Cancer Rising Psa Following Treatment for Malignant Neoplasm of Prostate Benign Prostatic Hyperplasia With Lower Urinary Tract Symptoms Symptoms from the lower urinary tract are consistent with: Dysuria: No. Hematuria: No. Urgency: No. Urge incontinence: No. Frequency day/night: Yes. Nocturia: No. Straining to urinate: No. Incomplete emptying: No. Decreased force/flow: Yes. Urge incontinence: No. Hesitancy: Yes. VITALS: There were no vitals taken for this visit. ALLERGIES: Bactrim [Sulfamethoxazole-Trimetho prim] MEDICATIONS: Current Outpatient Medications Medication Sig Dispense Refill - omeprazole (PRILOSEC) 20 mg capsule Take 20 mg by mouth once daily. Every other day - lisinopril-hydrochlorothia zide (PRINZIDE, ZESTORETIC) 20-25 mg per tablet Take 1 tablet by mouth once daily. - CETIRIZINE HCL (CETIRIZINE ORAL) Take 10 mg by mouth once daily. No current facility-administered medications for this visit. RECENT TREATMENT: EBRT CaP CURRENT : DysuriaNo Hematuria No Urgency No Nocturia 2 times per night Yes Straining to urinate No Decreased force/flow Yes Hesitancy Yes Incomplete Emptying:No Incontinence/Leakage:No Double void behavior No UTI No Feeling of incomplete empty No Abnormal Erections:No EXAMINATION:PHYSICAL EXAMINATION: PHYSICAL EXAMINATION: 5'8, weight 208 pounds General appearance: Well appearing, alert, in no acute distress, well-hydrated, well nourished. Skin: Skin color, texture, turgor normal, no suspicious rashes or lesions Head: Normocephalic, no masses, lesions, tenderness or abnormalities Eyes: Anicteric sclera. Pupils are equally round and reactive to light. Extraocular movements are intact. Neck: Supple, no adenopathy Lungs: not examined Heart: Not examined Abdomen: Normal abdominal exam, Abdomen soft, obese, non-tender. Bowel sounds normal. Cannot palpate masses, organomegaly :Penis is normal and circumcised circumcised. Both testes are retracted, normal, non-tender and free of induration epididymal tenderness. No inguinal hernia present. No hydrocele in either hemiscrotum. RECTAL EXAM: NST , No masses, Stool for guiaic not indicated and Prostate firm, flat consistent with radiated gland Extremities: Nl RECENT LABS: UA today auto dip: US PVR today IMPRESSION: 1. Biopsy proven recurrent CaP 2. Lupron 07/01/2019 3. MRI no evid periprostatic dz 4. Neg SV bx 5. Prostate vol 21.8 cc's PMH: HTN No CAD, No MT Never smoked No DM, No Thyroid No neurovasc Hx, No neurologic Hx Overweight 1. Prostate cancer (HCC) - ICD9: 185, ICD10: C61 (primary diagnosis) 2. History of external beam radiation therapy - ICD9: V15.3, ICD10: Z92.3 3. Overweight - ICD9: 278.02, ICD10: E66.3 Detailed discussion, 25 minutes regarding biopsy proven radiation failure CaP during which I described the implications, PSA range for successful salvage therapy based on published reports for ablative techniques, size limitation as well as tumor locations for such interventions and expectations of procedure related morbidity and outcomes. Full discussion of implications of seminal vesical status in decision making and associated outcomes if disease is in seminal vesicals (12 month failure 50%) ? If seminal vesicles are not involved and disease is localized to the prostate, and PSA in < 5.0 ng/ml, published reports on salvage cryoablation are consistent with 67% 36 month disease free survival rates. Longer term disease free survival is expected based on the peer review data and this is a viable option based on current clinical data. PLAN: 1. Offered salvage prostate cryoblation 2. All RBA discussed in detail as well as potential need for additional therapy in the event of biochemical failure. 3. Discussed nutritional supplement intervention. 4. Patient to decide on course of radiation 30 min face to face counseling Complex decision making. Kendra Martinez MD Normal [facility] PROGRESS HNO ID: [id number] Author: Chilo Bonds Service: ? Author Type: Physician Type: Progress Notes Filed: 08/27/2019 8:17 AM Note Text: [facility] ESTABLISHED PATIENT NOTE PATIENT INFO: Mahendra Vaughn PCP: Chilo Rodriguez II, MD UROLOGY DIAGNOSES: 1. Left testicular pain - ICD9: 608.9, ICD10: N50.812 CHIEF COMPLAINT: Testicular pain HPI: Patient returns for continuing evaluation and management. Several year history left testicular pain. Only treated with NSAIDs. Comes and goes. Recently developed on right as well. Activity dependent. US essentially normal, left epi slightly enlarged. SIGNS and SYMPTOMS: PMH: PAST MEDICAL HISTORY Diagnosis Date - Hypertension - Prostate cancer (HCC) 05/10/2014 - Prostate cancer (HCC) PSH: PAST SURGICAL HISTORY Procedure Laterality Date - HERNIA REPAIR HX 03/01/2014 - TONSILLECTOMY HX - VASECTOMY SH: Social History Socioeconomic History Marital status: Spouse name: Not on file Number of children: Not on file Years of education: Not on file Highest education level: Not on file Occupational History Not on file Social Needs Financial resource strain: Not on file Food insecurity: Worry: Not on file Inability: Not on file Transportation needs: Medical: Not on file Non-medical: Not on file Tobacco Use Smoking status: Never Smoker Smokeless tobacco: Never Used Substance and Sexual Activity Alcohol use: No Drug use: Never Sexual activity: Not on file Lifestyle Physical activity: Days per week: Not on file Minutes per session: Not on file Stress: Not on file Relationships Social connections: Talks on phone: Not on file Gets together: Not on file Attends christian service: Not on file Active member of club or organization: Not on file Attends meetings of clubs or organizations: Not on file Relationship status: Not on file Intimate partner violence: Fear of current or ex partner: Not on file Emotionally abused: Not on file Physically abused: Not on file Forced sexual activity: Not on file Other Topics Concerns: Not on file Social History Narrative Not on file FH: FAMILY HISTORY Problem Relation Age of Onset - Prostate Cancer Father mets to bones - Prostate Cancer Brother - Leukemia Mother 59 - Cancer Paternal Grandfather unknown type - Cancer Other maternal first cousin, unknown type - other (lymphoma) Maternal Uncle ROS: REVIEW OF SYSTEMS CHANGES SINCE LAST APPOINTMENT: unchanged MEDICATIONS: omeprazole (PRILOSEC) 20 mg capsule, Take 20 mg by mouth once daily. Every other day lisinopril-hydrochlorothia zide (PRINZIDE, ZESTORETIC) 20-25 mg per tablet, Take 1 tablet by mouth once daily. CETIRIZINE HCL (CETIRIZINE ORAL), Take 10 mg by mouth once daily. No current facility-administered medications for this visit. PHYSICAL EXAM: BP 141/65 (BP Site: Left Arm, BP Position: Sitting, BP Cuff Size: Large Adult) Pulse 62 Wt 94.3 kg (208 lb) BMI 32.61 kg/m? Body mass index is 32.61 kg/m?. General Appearance/ Constitutional: Well developed, well nourished, and in no apparent distress (MALE): Penis: Normal without external lesions Testicles: Tender bilaterally. Not limited to epididymis. UROLOGICAL DATA: COSI: =8 DIAGNOSES: 1. Left testicular pain - ICD9: 608.9, ICD10: N50.812 IMPRESSION/PLAN: Chronic testicular pain, now bilateral. Intermittent, some features of MSK. Discussed cord block, pain management. Going to treat prostate cancer first and then see how bothersome testicular symptoms are Chilo Bonds MD I spent approximately 25 minutes in this visit, with more than 50% of the time devoted to patient discussion, counseling, review of records and/or coordination of care. Normal [facility] ANASTASIYAOVon 08-25-2019 CNOV Office Visit (RADTSA ) -- MAHENDRA VAUGHN ([id number]) [address] [facility] Date Time Provider Department 08/25/19 1:15 PM LUDY STACK During your visit today, we recorded the following information about you: Pulse Respiration Blood pressure Weight 78/minute 18/minute 148/91 94.3 kg Ludy Stack MD 08/25/2019 3:29 PM Signed Radiation Oncology - Follow Up Note PATIENT NAME: Mahendra Vaughn PATIENT DIAGNOSIS: ?Stage II ([id number]) adenocarcinoma of the prostate, Brule score 7 (4+3); status post external beam radiation therapy. Now biopsy-proven recurrence in the prostate gland; status post Lupron injection in June 2019.. ? INTERVAL HISTORY: Mr. Vaughn is doing very well. ?His appetite is good and he?is maintaining his weight. ?He denies diarrhea or dysuria.? He was found to have recurrent adenocarcinoma of prostate on biopsy done on 07/27/2019. ALLERGIES Allergen Reactions - Bactrim [Sulfametho* Rash MEDICATIONS: omeprazole (PRILOSEC) 20 mg capsule Take 20 mg by mouth once daily. Every other day lisinopril-hydrochlorothia zide (PRINZIDE, ZESTORETIC) 20-25 mg per tablet Take 1 tablet by mouth once daily. CETIRIZINE HCL (CETIRIZINE ORAL) Take 10 mg by mouth once daily. PHYSICAL EXAM: VS: BP 148/91 Pulse 78 Resp 18 Wt 94.3 kg (208 lb) SpO2 98% BMI 32.61 kg/m? KPS: 90 The physical examination was not done on patient's request. ASSESSMENT AND PLAN: The patient has developed biopsy-proven recurrence in the prostate gland. There is no evidence of distant metastasis. He was recommended to have a radical prostatectomy or cryosurgery by Dr. Graf. He is going to see Dr. Martinez next week regarding cryosurgery. There is no role for radiation therapy at this time. The plan of management was discussed with the patient and his daughter in detail. All their questions were answered. No follow-up appointment was given in this department. Signed by: Ludy Stack M.D., FACRO cc: Chilo Rodriguez II, MD [address] [facility] [address] [place] [address] ? Dr. Brennan Graf. ? This note was dictated with Lisandro Naturally Speaking and may contain some grammatical errors due to limitations of the software. Referring Provider: LUDY STACK [[id number]] Allergies As of Date: 08/25/2019 Noted Allergy Reaction BACTRIM (SULFAMETHOXAZOLE-TRIMETH* 07/18/2016 2 - Rash Date Reviewed: 08/10/2019 Reviewed by: Danielle (Neon Tube Bender) ROSY Pagan - Fully Assessed Reason for Visit: Prostate Cancer [590] Primary Visit Diagnosis:Prostate cancer (HCC) [C61] Prescriptions as of 08/25/2019 Sig: OMEPRAZOLE 20 MG CAPSULE,CHASTITY* Take 20 mg by mouth once jose* LISINOPRIL 20 MG-HYDROCHLOROT* Take 1 tablet by mouth once d* CETIRIZINE ORAL Take 10 mg by mouth once jose* Problem List As Of Date 08/25/2019 Noted Resolved Prostate cancer (HCC) [C61] INVALID FOR* History of prostate cancer [Z85.46] INVALID FOR* Rising PSA following treatment for malignant ne*INVALID FOR* Benign prostatic hyperplasia with lower urinary*INVALID FOR* Disposition: Return if symptoms worsen or fail to improve. Follow-up and Disposition History Recorded Encounter Status:Closed by LUDY STACK MD on 08/25/19 [facility] PROGRESSon 08-25-2019 PROGRESS HNO ID: [id number] Author: Ludy Stack Service: ? Author Type: Physician Type: Progress Notes Filed: 08/25/2019 3:29 PM Note Text: Radiation Oncology - Follow Up Note PATIENT NAME: Mahendra Vaughn PATIENT DIAGNOSIS: ?Stage II ([id number]) adenocarcinoma of the prostate, Brule score 7 (4+3); status post external beam radiation therapy. Now biopsy-proven recurrence in the prostate gland; status post Lupron injection in June 2019.. ? INTERVAL HISTORY: Mr. Vaughn is doing very well. ?His appetite is good and he?is maintaining his weight. ?He denies diarrhea or dysuria.? He was found to have recurrent adenocarcinoma of prostate on biopsy done on 07/27/2019. ALLERGIES Allergen Reactions - Bactrim [Sulfametho* Rash MEDICATIONS: omeprazole (PRILOSEC) 20 mg capsule Take 20 mg by mouth once daily. Every other day lisinopril-hydrochlorothia zide (PRINZIDE, ZESTORETIC) 20-25 mg per tablet Take 1 tablet by mouth once daily. CETIRIZINE HCL (CETIRIZINE ORAL) Take 10 mg by mouth once daily. PHYSICAL EXAM: VS: BP 148/91 Pulse 78 Resp 18 Wt 94.3 kg (208 lb) SpO2 98% BMI 32.61 kg/m? KPS: 90 The physical examination was not done on patient's request. ASSESSMENT AND PLAN: The patient has developed biopsy-proven recurrence in the prostate gland. There is no evidence of distant metastasis. He was recommended to have a radical prostatectomy or cryosurgery by Dr. Graf. He is going to see Dr. Martinez next week regarding cryosurgery. There is no role for radiation therapy at this time. The plan of management was discussed with the patient and his daughter in detail. All their questions were answered. No follow-up appointment was given in this department. Signed by: Ludy Stack M.D., [facility] cc: Chilo Rodriguez II, MD [address] [place] [address] ? Dr. Brennan Graf. ? This note was dictated with Dragon Naturally Speaking and may contain some grammatical errors due to limitations of the software. Normal [facility] CNOVon 08-10-2019 CNOV Office Visit (UROLMN ) -- MAHENDRA VAUGHN ([id number]) 1955 Date Time Provider Department 08/10/19 2:40 PM TINO GRAF During your visit today, we recorded the following information about you: Tino Graf MD 10/08/2019 6:24 AM Signed CHIEF COMPLAINT: Prostate Cancer HPI Mahendra Vaughn is a 64 yo male with prostate cancer with highest core involvement 30% with androgen deprivation effect present. He presents to the clinic today with his family to discuss options for treatment. Pt's family explained that he had previously had radiation treatment, so a GI score is unable to be obtained. Pt reports that his erections are okay . 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 LABS Creatinine Date Value Ref Range Status 06/28/2019 1.01 0.73 - 1.22 mg/dL Final PSA (ng/mL) Date Value 07/17/2017 0.86 07/18/2016 0.56 07/20/2015 0.68 06/16/2014 0.77 IMAGING MRI PROSTATE (07/07/19): - NO LESION WITH IMAGING FINDINGS SUSPICIOUS FOR CLINICALLY SIGNIFICANT PROSTATE CANCER. - NO LYMPHADENOPATHY. PATHOLOGY: SURGICAL PATHOLOGY (07/23/2019): 1. Left base prostate, biopsy (A) - Prostatic adenocarcinoma with evidence of androgen deprivation effect involving 30% of one of two biopsy cores. - The maximum length of the carcinoma in the biopsy core is 4 mm. 2. Left mid prostate, biopsy (B) - Prostatic adenocarcinoma with evidence of androgen deprivation effect involving 30% of one of two biopsy cores. - The maximum length of the carcinoma in the biopsy core is 4 mm. 3. Left apex prostate, biopsy (C) - Prostatic adenocarcinoma with evidence of androgen deprivation effect involving 25% of one of two biopsy cores. - The maximum length of the carcinoma in the biopsy core is 2.5 mm. 4. Left seminal vesicle, biopsy (D) - Benign seminal vesicle. 5. Right base, right mid, right apex prostate, biopsy (E, F, G) - Benign prostatic parenchyma. 6. Right seminal vesicle, biopsy (H) - Benign seminal vesicle. REVIEW OF SYSTEMS GENERAL:No weight loss, malaise or fevers., SEE HPI GENITOURINARY: No history of dysuria, frequency or incontinence The remainder of the ROS was negative. HISTORIES PAST MEDICAL HISTORY Diagnosis Date - Hypertension - Prostate cancer (HCC) 05/10/2014 - Prostate cancer (HCC) PAST SURGICAL HISTORY Procedure Laterality Date - HERNIA REPAIR HX 03/01/2014 - TONSILLECTOMY HX - VASECTOMY FAMILY HISTORY Problem Relation Age of Onset - Prostate Cancer Father mets to bones - Prostate Cancer Brother - Leukemia Mother 59 - Cancer Paternal Grandfather unknown type - Cancer Other maternal first cousin, unknown type - other (lymphoma) Maternal Uncle SOCIAL HISTORY Social History Tobacco Use - Smoking status: Never Smoker - Smokeless tobacco: Never Used Substance Use Topics - Alcohol use: No - Drug use: Never Current Outpatient Medications: omeprazole (PRILOSEC) 20 mg capsule Take 20 mg by mouth once daily. Every other day lisinopril-hydrochlorothia zide (PRINZIDE, ZESTORETIC) 20-25 mg per tablet Take 1 tablet by mouth once daily. CETIRIZINE HCL (CETIRIZINE ORAL) Take 10 mg by mouth once daily. No current facility-administered medications for this visit. PHYSICAL EXAMINATION General appearance: Well appearing, alert, in no acute distress and well-hydrated, well nourished IMPRESSION 64 yo male with prostate cancer with highest core involvement 30% with androgen deprivation effect present. Discussed r/b/a cryotherapy, brachytherapy, and RALP. Informed the pt that with cryotherapy, there is less risk of urinary incontinence. Expained that with his cancer, after treatment it is highly unlikely he will have effective erections and will recommend treatment for this after surgery. Pt will consult Dr. Martinez to discuss cryotherapy and will contact clinic if he decides to pursue the RALP. Pt has appointment with Dr. Bonds tomorrow for management of chronic left testicular pain. PLAN Consult Dr. Martinez to discuss cryotherapy. Will contact clinic if he decides on RALP Scribe Attestation: By signing my name below, Ayah Rutherford and Kaylan Woo, attest that this documentation has been prepared under the direction and in the presence of Dr. Tino Graf MD. Electronically signed: Melquiades Porter, August 10, 2019 11:19 AM Tino Rutherford MD, personally performed the services described in this documentation. All medical record entries made by the scribe were at my direction and in my presence. I have reviewed the chart and discharge instructions (if applicable) and agree that the record reflects my personal performance and is accurate and complete. Tino Graf MD Referring Provider: TINO GRAF [[id number]] Allergies As of Date: 08/10/2019 Noted Allergy Reaction BACTRIM (SULFAMETHOXAZOLE-TRIMETH* 07/18/2016 2 - Rash Date Reviewed: 08/10/2019 Reviewed by: Danielle Arrington) ROSY Pagan - Fully Assessed Primary Visit Diagnosis:Malignant neoplasm of prostate (HCC) [C61] Other Visit Diagnosis:Prostate cancer (HCC) [C61] Prescriptions as of 08/10/2019 Sig: OMEPRAZOLE 20 MG CAPSULE,CHASTITY* Take 20 mg by mouth once jose* LISINOPRIL 20 MG-HYDROCHLOROT* Take 1 tablet by mouth once d* CETIRIZINE ORAL Take 10 mg by mouth once jose* Problem List As Of Date 08/10/2019 Noted Resolved Prostate cancer (HCC) [C61] 05/10/2014 History of prostate cancer [Z85.46] 06/16/2014 Rising PSA following treatment for malignant ne*06/23/2019 Benign prostatic hyperplasia with lower urinary*10/15/2018 Encounter Status:Closed by TINO GRAF MD on 10/08/19 [facility] CNOVSPon 08-10-2019 OVS Visit (SP) Office (H EMCA4) -- MAHENDRA VAUGHN ([id number]) 1955 [facility] Date Time Provider Department 08/10/19 11:00 AM LURDES ABEBE) [facility]EM[facility]4 During your visit today, we recorded the following information about you: Temperature Pulse Respiration Blood pressure 97.8 degrees 62/minute 20/minute 120/62 Weight Height 93.7 kg 1.701 m Danielle Pagan LPN, ROSY 08/10/2019 11:00 AM Signed Additional intake questions: Has the patient had fever, nausea, vomiting, diarrhea, constipation, fatigue for > 1 week? No Does the patient have a decreased appetite? No Does patient want to see a Cat Wagon Operator? No (yes to any of above refer patient to schedulers for dietitian appointment) ) Does patient have any new or increased numbness or tingling of extremities? No Is patient interested in fertility information? NA Does patient need any prescription refills? No Electronically Signed By: ROSY Packer MD 08/16/2019 11:12 AM Signed [facility] ? ONCOLOGY INITIAL CONSULT NOTE Date of Service: Aug 10, 2019 CHIEF COMPLAINT:Norma 7 (4+3) prostate cancer status post EBRT in 2009 with PSA recurrence. ?My final recommendations will be communicated back to the requesting physician by way of shared medical record or letter. HPI: The patient is a 64 year old male who underwent EBRT in 2009 for Brule 7 prostate cancer. His PSA was never undetectable. His PSA log is as follows: 09/2012: 1.16 11/2012: .53 05/2013: 0.73 11/2013: 0.58 06/2014: 0.77 07/2015 0.68 07/2016: 0.56 07/2017: 0.86 03/2018: 1.030 04/2019: 3.040 05/2019: 3.16 He does not have urinary symptoms. Reports chronic left testicle pain. Was recommended to wear support, he feels it does not help. 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 Recent prostate biopsy 07/23/19 shows: 1. Left base prostate, biopsy (A) - Prostatic adenocarcinoma with evidence of androgen deprivation effect involving 30% of one of two biopsy cores. - The maximum length of the carcinoma in the biopsy core is 4 mm. 2. Left mid prostate, biopsy (B) - Prostatic adenocarcinoma with evidence of androgen deprivation effect involving 30% of one of two biopsy cores. - The maximum length of the carcinoma in the biopsy core is 4 mm. 3. Left apex prostate, biopsy (C) - Prostatic adenocarcinoma with evidence of androgen deprivation effect involving 25% of one of two biopsy cores. - The maximum length of the carcinoma in the biopsy core is 2.5 mm. MRI prostate: NO LESION WITH IMAGING FINDINGS SUSPICIOUS FOR CLINICALLY SIGNIFICANT PROSTATE CANCER. He started Lupron with local medical oncologist in June. Tolerating well so far. ROS: 14 point ROS neg other than the symptoms noted above in the HPI. PAST MEDICAL HISTORY Diagnosis Date - Hypertension - Prostate cancer (HCC) 05/10/2014 - Prostate cancer (HCC) Social History Tobacco Use - Smoking status: Never Smoker - Smokeless tobacco: Never Used Substance Use Topics - Alcohol use: No - Drug use: Never ALLERGIES Allergen Reactions - Bactrim [Sulfametho* Rash Current Outpatient Medications Medication Sig Dispense Refill - omeprazole (PRILOSEC) 20 mg capsule Take 20 mg by mouth once daily. Every other day - lisinopril-hydrochlorothia zide (PRINZIDE, ZESTORETIC) 20-25 mg per tablet Take 1 tablet by mouth once daily. - CETIRIZINE HCL (CETIRIZINE ORAL) Take 10 mg by mouth once daily. No current facility-administered medications for this visit. Physical Examination: ECOG performance status of 0- Fully active, able to carry on all pre-disease performance w/o restriction. Vital signs: BP 120/62 Pulse 62 Temp 36.6 ?C (97.8 ?F) Resp 20 Ht 170.1 cm (5' 6.97 ) Wt 93.7 kg (206 lb 9.6 oz) SpO2 100% BMI 32.39 kg/m? HEENT: No icterus, no pallor. Moist mucous membranes. Oropharynx is clear. NECK: Supple LUNGS: Bilateral clear to ausculation CARDIOVASCULAR: Regular rate and rhythm, no murmurs, gallops or rubs. ABDOMEN: Soft, nontender and nondistended. EXTREMITIES: No cyanosis, no clubbing, no edema. NEUROLOGIC: No focal deficits. LYMPH NODE EXAM: No palpable adenopathy; cervical, axillary or inguinal. LABORATORY AND IMAGING DATA Reviewed ASSESSMENT AND PLAN: 67 year old male with Norma 7 prostate cancer status post EBRT 2010, with rising PSA, PSADT over 12 months. He started ADT locally in June 2019. We had a long discussion about the lack of overall survival benefit with ADT in non metastatic setting and the morbidity and side effects associated with ADT in this setting without obvious metastases and the role of intermittent ADT. We also reviewed the option of salvage prostatectomy and cryoablation, patient is lenaing towards salvage Rp and will discuss with Dr. Graf later today. I recommended since he has already had 6 month lupron shot, it may be reasonable to watch his PSA after that and not be on continuous ADT. In any case if he undergoes salvage RP, his PSA may be controlled with that. Testicular pain: follow with urology. I spent 50 minutes in consultation and over 50% of the time was spent on counseling and coordinating care. Lurdes Abebe MD Staff Physician Department of Hematology [place] [address] Referring Provider: TINO GRAF [[id number]] Allergies As of Date: 08/10/2019 Noted Allergy Reaction BACTRIM (SULFAMETHOXAZOLE-TRIMETH* 07/18/2016 2 - Rash Date Reviewed: 08/10/2019 Reviewed by: Danielle Arrington) ROSY Pagan - Fully Assessed Reason for Visit: Consult [173] Primary Visit Diagnosis:Rising PSA following treatment for malignant neoplasm of prostate [R97.21] Prescriptions as of 08/10/2019 Sig: OMEPRAZOLE 20 MG CAPSULE,CHASTITY* Take 20 mg by mouth once jose* LISINOPRIL 20 MG-HYDROCHLOROT* Take 1 tablet by mouth once d* CETIRIZINE ORAL Take 10 mg by mouth once jose* Problem List As Of Date 08/10/2019 Noted Resolved Prostate cancer (HCC) [C61] INVALID FOR* History of prostate cancer [Z85.46] INVALID FOR* Rising PSA following treatment for malignant ne*INVALID FOR* Benign prostatic hyperplasia with lower urinary*INVALID FOR* Visit Notes: >> Danielle Arrington) ROSY Pagan Tuelizabeth Aug 10, 2019 10:58 AM Status: Signed Additional intake questions: Has the patient had fever, nausea, vomiting, diarrhea, constipation, fatigue for > 1 week? No Does the patient have a decreased appetite? No Does patient want to see a Cat Wagon Operator? No (yes to any of above refer patient to schedulers for dietitian appointment) ) Does patient have any new or increased numbness or tingling of extremities? No Is patient interested in fertility information? NA Does patient need any prescription refills? No Electronically Signed By: Danielle Pagan LPN Encounter Status:Closed by LURDES ABEBE MD on 08/16/19 [facility] Gerardo 08-10-2019 [facility] Patient Outreach (UR OLMN) -- MAHENDRA VAUGHN ([id number]) [address] [facility] Date Time Provider Department 08/10/19 TINO GRAF During your visit today, we recorded the following information about you: Allergies As of Date: 08/10/2019 Noted Allergy Reaction BACTRIM (SULFAMETHOXAZOLE-TRIMETH* 07/18/2016 2 - Rash Date Reviewed: 08/10/2019 Reviewed by: Danielle (Neon Tube Bender) ROSY Pagan - Fully Assessed Visit Diagnosis:Screening for genitourinary condition [Z13.89] Order(s):UA CHEMSTRIP ONLY [SQUA] Order #: [id number]. #:[id number] Prescriptions as of 08/10/2019 Sig: OMEPRAZOLE 20 MG CAPSULE,CHASTITY* Take 20 mg by mouth once jose* LISINOPRIL 20 MG-HYDROCHLOROT* Take 1 tablet by mouth once d* CETIRIZINE ORAL Take 10 mg by mouth once jose* Problem List As Of Date 08/10/2019 Noted Resolved Prostate cancer (HCC) [C61] INVALID FOR* History of prostate cancer [Z85.46] INVALID FOR* Rising PSA following treatment for malignant ne*INVALID FOR* Benign prostatic hyperplasia with lower urinary*INVALID FOR* Encounter Status:Closed by WES COHEN on 08/25/19 [facility] PROGRESSon 08-10-2019 PROGRESS HNO ID: [id number] Author: Lurdes [place]) [place] J Service: ? Author Type: Physician Type: Progress Notes Filed: 08/16/2019 11:12 AM Note Text: [facility] ? ONCOLOGY INITIAL CONSULT NOTE Date of Service: Aug 10, 2019 CHIEF COMPLAINT:Brule 7 (4+3) prostate cancer status post EBRT in 2009 with PSA recurrence. ?My final recommendations will be communicated back to the requesting physician by way of shared medical record or letter. HPI: The patient is a 64 year old male who underwent EBRT in 2009 for Brule 7 prostate cancer. His PSA was never undetectable. His PSA log is as follows: 09/2012: 1.16 11/2012: .53 05/2013: 0.73 11/2013: 0.58 06/2014: 0.77 07/2015 0.68 07/2016: 0.56 07/2017: 0.86 03/2018: 1.030 04/2019: 3.040 05/2019: 3.16 He does not have urinary symptoms. Reports chronic left testicle pain. Was recommended to wear support, he feels it does not help. 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 Recent prostate biopsy 07/23/19 shows: 1. Left base prostate, biopsy (A) - Prostatic adenocarcinoma with evidence of androgen deprivation effect involving 30% of one of two biopsy cores. - The maximum length of the carcinoma in the biopsy core is 4 mm. 2. Left mid prostate, biopsy (B) - Prostatic adenocarcinoma with evidence of androgen deprivation effect involving 30% of one of two biopsy cores. - The maximum length of the carcinoma in the biopsy core is 4 mm. 3. Left apex prostate, biopsy (C) - Prostatic adenocarcinoma with evidence of androgen deprivation effect involving 25% of one of two biopsy cores. - The maximum length of the carcinoma in the biopsy core is 2.5 mm. MRI prostate: NO LESION WITH IMAGING FINDINGS SUSPICIOUS FOR CLINICALLY SIGNIFICANT PROSTATE CANCER. He started Lupron with local medical oncologist in June. Tolerating well so far. ROS: 14 point ROS neg other than the symptoms noted above in the HPI. PAST MEDICAL HISTORY Diagnosis Date - Hypertension - Prostate cancer (HCC) 05/10/2014 - Prostate cancer (HCC) Social History Tobacco Use - Smoking status: Never Smoker - Smokeless tobacco: Never Used Substance Use Topics - Alcohol use: No - Drug use: Never ALLERGIES Allergen Reactions - Bactrim [Sulfametho* Rash Current Outpatient Medications Medication Sig Dispense Refill - omeprazole (PRILOSEC) 20 mg capsule Take 20 mg by mouth once daily. Every other day - lisinopril-hydrochlorothia zide (PRINZIDE, ZESTORETIC) 20-25 mg per tablet Take 1 tablet by mouth once daily. - CETIRIZINE HCL (CETIRIZINE ORAL) Take 10 mg by mouth once daily. No current facility-administered medications for this visit. Physical Examination: ECOG performance status of 0- Fully active, able to carry on all pre-disease performance w/o restriction. Vital signs: BP 120/62 Pulse 62 Temp 36.6 ?C (97.8 ?F) Resp 20 Ht 170.1 cm (5' 6.97 ) Wt 93.7 kg (206 lb 9.6 oz) SpO2 100% BMI 32.39 kg/m? HEENT: No icterus, no pallor. Moist mucous membranes. Oropharynx is clear. NECK: Supple LUNGS: Bilateral clear to ausculation CARDIOVASCULAR: Regular rate and rhythm, no murmurs, gallops or rubs. ABDOMEN: Soft, nontender and nondistended. EXTREMITIES: No cyanosis, no clubbing, no edema. NEUROLOGIC: No focal deficits. LYMPH NODE EXAM: No palpable adenopathy; cervical, axillary or inguinal. LABORATORY AND IMAGING DATA Reviewed ASSESSMENT AND PLAN: 67 year old male with Brule 7 prostate cancer status post EBRT 2010, with rising PSA, PSADT over 12 months. He started ADT locally in June 2019. We had a long discussion about the lack of overall survival benefit with ADT in non metastatic setting and the morbidity and side effects associated with ADT in this setting without obvious metastases and the role of intermittent ADT. We also reviewed the option of salvage prostatectomy and cryoablation, patient is lenaing towards salvage Rp and will discuss with Dr. Graf later today. I recommended since he has already had 6 month lupron shot, it may be reasonable to watch his PSA after that and not be on continuous ADT. In any case if he undergoes salvage RP, his PSA may be controlled with that. Testicular pain: follow with urology. I spent 50 minutes in consultation and over 50% of the time was spent on counseling and coordinating care. Lurdes Abebe MD Staff Physician Department of Hematology [place] [address] [facility] PROGRESS HNO ID: [id number] Author: Tino Graf Service: ? Author Type: Physician Type: Progress Notes Filed: 10/08/2019 6:24 AM Note Text: CHIEF COMPLAINT: Prostate Cancer HPI Mahendra Vaughn is a 64 yo male with prostate cancer with highest core involvement 30% with androgen deprivation effect present. He presents to the clinic today with his family to discuss options for treatment. Pt's family explained that he had previously had radiation treatment, so a GI score is unable to be obtained. Pt reports that his erections are okay . Patient is self-employed performing lawn care and upkeep. LABS Creatinine Date Value Ref Range Status 06/28/2019 1.01 0.73 - 1.22 mg/dL Final PSA (ng/mL) Date Value 07/17/2017 0.86 07/18/2016 0.56 07/20/2015 0.68 06/16/2014 0.77 IMAGING MRI PROSTATE (07/07/19): - NO LESION WITH IMAGING FINDINGS SUSPICIOUS FOR CLINICALLY SIGNIFICANT PROSTATE CANCER. - NO LYMPHADENOPATHY. PATHOLOGY: SURGICAL PATHOLOGY (07/23/2019): 1. Left base prostate, biopsy (A) - Prostatic adenocarcinoma with evidence of androgen deprivation effect involving 30% of one of two biopsy cores. - The maximum length of the carcinoma in the biopsy core is 4 mm. 2. Left mid prostate, biopsy (B) - Prostatic adenocarcinoma with evidence of androgen deprivation effect involving 30% of one of two biopsy cores. - The maximum length of the carcinoma in the biopsy core is 4 mm. 3. Left apex prostate, biopsy (C) - Prostatic adenocarcinoma with evidence of androgen deprivation effect involving 25% of one of two biopsy cores. - The maximum length of the carcinoma in the biopsy core is 2.5 mm. 4. Left seminal vesicle, biopsy (D) - Benign seminal vesicle. 5. Right base, right mid, right apex prostate, biopsy (E, F, G) - Benign prostatic parenchyma. 6. Right seminal vesicle, biopsy (H) - Benign seminal vesicle. REVIEW OF SYSTEMS GENERAL:No weight loss, malaise or fevers., SEE HPI GENITOURINARY: No history of dysuria, frequency or incontinence The remainder of the ROS was negative. HISTORIES PAST MEDICAL HISTORY Diagnosis Date - Hypertension - Prostate cancer (HCC) 05/10/2014 - Prostate cancer (HCC) PAST SURGICAL HISTORY Procedure Laterality Date - HERNIA REPAIR HX 03/01/2014 - TONSILLECTOMY HX - VASECTOMY FAMILY HISTORY Problem Relation Age of Onset - Prostate Cancer Father mets to bones - Prostate Cancer Brother - Leukemia Mother 59 - Cancer Paternal Grandfather unknown type - Cancer Other maternal first cousin, unknown type - other (lymphoma) Maternal Uncle SOCIAL HISTORY Social History Tobacco Use - Smoking status: Never Smoker - Smokeless tobacco: Never Used Substance Use Topics - Alcohol use: No - Drug use: Never Current Outpatient Medications: omeprazole (PRILOSEC) 20 mg capsule Take 20 mg by mouth once daily. Every other day lisinopril-hydrochlorothia zide (PRINZIDE, ZESTORETIC) 20-25 mg per tablet Take 1 tablet by mouth once daily. CETIRIZINE HCL (CETIRIZINE ORAL) Take 10 mg by mouth once daily. No current facility-administered medications for this visit. PHYSICAL EXAMINATION General appearance: Well appearing, alert, in no acute distress and well-hydrated, well nourished IMPRESSION 64 yo male with prostate cancer with highest core involvement 30% with androgen deprivation effect present. Discussed r/b/a cryotherapy, brachytherapy, and RALP. Informed the pt that with cryotherapy, there is less risk of urinary incontinence. Expained that with his cancer, after treatment it is highly unlikely he will have effective erections and will recommend treatment for this after surgery. Pt will consult Dr. Martinez to discuss cryotherapy and will contact clinic if he decides to pursue the RALP. Pt has appointment with Dr. Bonds tomorrow for management of chronic left testicular pain. PLAN Consult Dr. Martinez to discuss cryotherapy. Will contact clinic if he decides on RALP Scribe Attestation: By signing my name below, Ayah Rutherford and Kaylan Woo, attest that this documentation has been prepared under the direction and in the presence of Dr. Tino Graf MD. Electronically signed: Ava Portere, August 10, 2019 11:19 AM I, Tino Graf MD, personally performed the services described in this documentation. All medical record entries made by the scribe were at my direction and in my presence. I have reviewed the chart and discharge instructions (if applicable) and agree that the record reflects my personal performance and is accurate and complete. Tino Graf MD Normal [facility] Urinalysison 08-10-2019 Bilirubin, Urine Negative Normal Negative [facility] Comment on above: Performed By: #### U A ####[facility] [address] [place], [place] [phone] Clarity (U) Clear Normal Clear [facility] Comment on above: Performed By: #### U A ####[facility] [address] [place], [place] [phone] Color (U) Yellow Normal Yellow [facility] Comment on above: Performed By: #### U A ####[place] [address] [address] [phone] Comments SEE COMMENT Normal [facility] Comment on above: Result Comment: Micr oscopic not warranted Performed By: #### U A ####[place] [address] [address] [phone] Glucose Ql (U) Negative Normal Negative [facility] Comment on above: Performed By: #### U A ####[place] [address] [address] [phone] Hemoglobin/Blood,Ur Negative Normal Negative [facility] Comment on above: Performed By: #### U A ####[place] [address] [address] [phone] Ketones Ql (U) Negative Normal Negative [facility] Comment on above: Performed By: #### U A ####[place] [address] [address] [phone] Leukest Negative Normal Negative [facility] Comment on above: Performed By: #### U A ####[place] [address] [phone] Nitrite Ql (U) Negative Normal Negative [facility] Comment on above: Performed By: #### U A ####[place] [address] [address] [phone] pH (Bld) 7.0 Normal 4.5-8.0 [facility] Comment on above: Performed By: #### U A ####[place] [address] [address] [phone] Protein (U) [Mass/Vol] Negative Normal Negative [facility] Comment on above: Performed By: #### U A ####[place] [address] [address], [place] [phone] Specific [place], Ur 1.012 Normal 1.005-1 .03 0 [facility] Comment on above: Performed By: #### U A ####[facility] [address], [place] [phone] Urine Masood Comment SEE COMMENT Normal [facility] Comment on above: Result Comment: N/A Performed By: #### U A ####[facility] [place], [place] [phone] Urobilinogen Qn (U) Normal Normal Normal [facility] Comment on above: Performed By: #### U A ####[facility] [place], [place] [phone] CNOVSPon 08-02-2019 CNOVSP Visit (SP) Office ( [facility]) -- MAHENDRA VAUGHN ([id number]) [address] [facility] Date Time Provider Department 08/02/19 4:00 PM VEE CASTRO) RYAN During your visit today, we recorded the following information about you: Temperature Pulse Respiration Blood pressure 97.8 degrees 81/minute 18/minute 148/74 Weight Height 93.3 kg 1.738 m Vee Castro MD 08/02/2019 11:01 PM Addendum PATIENT NAME: Mahendra Vaughn CLINIC NO.: [id number] ATTENDING PHYSICIAN: Vee Castro MD DATE OF SERVICE: August 02, 2019 This document has been created with the use of voice recognition technology. It may contain inaccuracies, misspellings, inaccurate syntax or inappropriate word context that escaped review. Dear Dr. Rodriguez, here is an update on a follow up visit on male Mahendra Vaughn at the clinic 08/02/2019 Diagnosis: 1. T1c, N0, M0, Brule 7 (4+3) prostate adenocarcinoma diagnosed 2010 Treatment History: 1. External beam radiotherapy 2010. Patient never achieved an undetectable PSA. Now with rising PSA. 09/2012: 1.16 11/2012: .53 05/2013: 0.73 11/2013: 0.58 06/2014: 0.77 07/2015 0.68 07/2016: 0.56 07/2017: 0.86 03/2018: 1.030 04/2019: 3.[address] Pagan [facility] June [address] scan bone scan May 17, 2019 negative for metastatic disease. CT of the chest June 28, 2019 with a 3 mm left upper lobe nodule. 4. Genetic testing July 2019 negative for deleterious mutations. HPI: Mahendra Vaughn is a 64 year old year old male here for follow up. Patient saw Dr. Graf at the main campus and options for therapy were discussed. He underwent a prostate biopsy on July 27, 2019 which the left base prostate, left mid prostate as well as left apical prosthetic biopsies demonstrated prostatic adenocarcinoma with evidence of androgen deprivation. Left seminal vesicle biopsy was negative. Right sided prostatic biopsies were negative as well. Patient's tumor could not be grouped secondary to recent androgen deprivation therapy receive through Dr. Pagan's office. Patient has a follow-up with Dr. Graf to discuss options at that point. PAST MEDICAL HISTORY Diagnosis Date - Hypertension - Prostate cancer (HCC) 05/10/2014 - Prostate cancer (HCC) Social History Socioeconomic History Marital status: Spouse name: Not on file Number of children: Not on file Years of education: Not on file Highest education level: Not on file Occupational History Not on file Social Needs Financial resource strain: Not on file Food insecurity: Worry: Not on file Inability: Not on file Transportation needs: Medical: Not on file Non-medical: Not on file Tobacco Use Smoking status: Never Smoker Smokeless tobacco: Never Used Substance and Sexual Activity Alcohol use: No Drug use: Never Sexual activity: Not on file Lifestyle Physical activity: Days per week: Not on file Minutes per session: Not on file Stress: Not on file Relationships Social connections: Talks on phone: Not on file Gets together: Not on file Attends christian service: Not on file Active member of club or organization: Not on file Attends meetings of clubs or organizations: Not on file Relationship status: Not on file Intimate partner violence: Fear of current or ex partner: Not on file Emotionally abused: Not on file Physically abused: Not on file Forced sexual activity: Not on file Other Topics Concerns: Not on file Social History Narrative Not on file FAMILY HISTORY Problem Relation Age of Onset - Prostate Cancer Father mets to bones - Prostate Cancer Brother - Leukemia Mother 59 - Cancer Paternal Grandfather unknown type - Cancer Other maternal first cousin, unknown type - other (lymphoma) Maternal Uncle Past medical, social and family history reviewed without any changes. REVIEW OF SYSTEMS GENERAL: No weight loss, malaise or fevers. No night sweats. HEENT: Negative for headaches, No changes in hearing or vision, no nose bleeds or other nasal problems. RESPIRATORY: Negative for cough, wheezing and shortness of breath CARDIOVASCULAR: Negative for chest pain, leg swelling and palpitations GI: Negative for abdominal discomfort, blood in stools or black stools and change in bowel habits : Negative for dysuria, frequency and incontinence MUSCULOSKELETAL: Negative for joint pain or swelling, back pain, and muscle pain. SKIN: Negative for lesions, rash, and itching. HEMATOLOGY/LYMPHOLOGY Negative for prolonged bleeding, bruising easily, and swollen nodes. NEURO: Negative for numbness or tingling of hands/feet. No weakness. PHYSICAL EXAMINATION: BP 148/74 Pulse 81 Temp (Src) 97.8 (Oral) Resp 18 Ht 5' 8.425 (1.74m) Wt 205 lb 9.6 oz (93.3kg) SpO2 99% BMI 30.87 kg/(m2). Wt 93.3 kg (205 lb 9.6 oz) BMI 30.87 kg/m2 Last 3 Encounter Wt Readings: Date: Wt: 08/02/2019 93.3 kg (205 lb 9.6 oz) 06/23/2019 94.5 kg (208 lb 6.4 oz) 11/12/2018 98.2 kg (216 lb 9.6 oz) General appearance:ECOG PERFORMANCE STATUS: 0- Fully active, able to carry on all pre-disease performance w/o restriction. Patient in NAD. Skin: Skin color, texture, turgor normal. No rashes or lesions. Eyes: Anicteric sclera. Pupils are equally round and reactive to light. Extraocular movements are intact. Lymph Nodes: No cervical, supraclavicular, axillary or inguinal adenopathy. Oropharynx: Lips, mucosa, and tongue normal. Back: No pain to percussion. Negative SLR test Lungs clear to auscultation, No wheezing or rhonchi Heart: RRR without murmur, gallop, or rubs. Abdomen soft, non-tender. No masses, organomegaly Extremities: No deformities. No edema Neuro: Gait and speech normal. Reflexes normal and symmetric. Muscular strength intact. Sensation grossly intact. Rectal: Deferred : Deferred LABS: Creatinine (mg/dL) Date Value 06/28/2019 1.01 No results found for: WBC, RBC, HB, HCT, MCV, MCH, MCHC, RDWCV, PLT, MPV, MPV, NEUT, ABSNEUT, LYMPHP, ABSLYMPH, MONOP, ABSMONO, EOSINP, ABSEOSIN, BASOP, ABSBASO PATH: Prostate biopsy July 23, 2019: 1. Left base prostate, biopsy (A) - Prostatic adenocarcinoma with evidence of androgen deprivation effect involving 30% of one of two biopsy cores. - The maximum length of the carcinoma in the biopsy core is 4 mm. 2. Left mid prostate, biopsy (B) - Prostatic adenocarcinoma with evidence of androgen deprivation effect involving 30% of one of two biopsy cores. - The maximum length of the carcinoma in the biopsy core is 4 mm. 3. Left apex prostate, biopsy (C) - Prostatic adenocarcinoma with evidence of androgen deprivation effect involving 25% of one of two biopsy cores. - The maximum length of the carcinoma in the biopsy core is 2.5 mm. 4. Left seminal vesicle, biopsy (D) - Benign seminal vesicle. 5. Right base, right mid, right apex prostate, biopsy (E, F, G) - Benign prostatic parenchyma. 6. Right seminal vesicle, biopsy (H) - Benign seminal vesicle. Prostate Cancer Biopsy Summary Number of cores examined: 14 Number of cores positive: 3 Highest Grade Group: Not applicable (androgen deprivation effect present) Highest % of core involvement: 30% Cribriform pattern 4: Not applicable (androgen deprivation effect present) Intraductal carcinoma: Absent Imaging: As Per Treatment section Assessment and Plan: Mahendra Vaughn is a 64 year old year old male here for follow up. We had a lengthy discussion in regards to various therapeutic options. Patient has an appointment with Dr. Graf next week to discuss either proceeding with surgical resection, cryotherapy and or proceeding with medical therapy with LHRH agonist in the setting of the PSA rise in a non metastatic hormone sensitive patient. I will see patient after he has had a discussion with Dr. Graf to discuss further planning. Thank you for the kind referral. If there are any questions and or concerns please do not hesitate to contact me at [phone]. Vee Castro MD Hematology/Medical Oncology [facility] CC: Chilo Rodriguez II, MD - (Inactive), In Basket (Inactive) [address] [facility] [address] [place] [address] (Ph) Tino Graf M.D. Referring Provider: VEE CASTRO) [[id number]] Allergies As of Date: 08/02/2019 Noted Allergy Reaction BACTRIM (SULFAMETHOXAZOLE-TRIMETH* 07/18/2016 2 - Rash Date Reviewed: 08/02/2019 Reviewed by: Vee Castro - Fully Assessed Reason for Visit: Prostate Cancer [590] Cmt: 6 week follow up Primary Visit Diagnosis:Malignant neoplasm of prostate (HCC) [C61] Disposition: Return in about 2 weeks (around 08/16/2019) for Follow up. Follow-up and Disposition History Recorded Prescriptions as of 08/02/2019 Sig: OMEPRAZOLE 20 MG CAPSULE,CHASTITY* Take 20 mg by mouth once jose* LISINOPRIL 20 MG-HYDROCHLOROT* Take 1 tablet by mouth once d* CETIRIZINE ORAL Take 10 mg by mouth once jose* Problem List As Of Date 08/02/2019 Noted Resolved Prostate cancer (HCC) [C61] INVALID FOR* History of prostate cancer [Z85.46] INVALID FOR* Rising PSA following treatment for malignant ne*INVALID FOR* Benign prostatic hyperplasia with lower urinary*INVALID FOR* Encounter Status:Closed by VEE CASTRO MD on 08/02/19 Normal [facility] PROGRESSon 08-02-2019 PROGRESS HNO ID: [id number] Author: Vee Castro Service: ? Author Type: Physician Type: Progress Notes Filed: 08/02/2019 11:01 PM Note Text: [id number] ATTENDING PHYSICIAN: Vee Castro MD DATE OF SERVICE: August 02, 2019 This document has been created with the use of voice recognition technology. It may contain inaccuracies, misspellings, inaccurate syntax or inappropriate word context that escaped review. Dear Dr. Rodriguez, here is an update on a follow up visit on male Mahendra Vaughn at the clinic 08/02/2019 Diagnosis: 1. T1c, N0, M0, Brule 7 (4+3) prostate adenocarcinoma diagnosed 2010 Treatment History: 1. External beam radiotherapy 2010. Patient never achieved an undetectable PSA. Now with rising PSA. 09/2012: 1.16 11/2012: .53 05/2013: 0.73 11/2013: 0.58 06/2014: 0.77 07/2015 0.68 07/2016: 0.56 07/2017: 0.86 03/2018: 1.030 04/2019: 3.[address] Pagan an [facility] June [address] scan bone scan May 17, [address] negative for [address] disease. CT of the chest June 28, 2019 with a 3 mm left upper lobe nodule. 4. Genetic testing July 2019 negative for deleterious mutations. HPI: Mahendra Vaughn is a 64 year old year old male here for follow up. Patient saw Dr. Graf at the main campus and options for therapy were discussed. He underwent a prostate biopsy on July 27, 2019 which the left base prostate, left mid prostate as well as left apical prosthetic biopsies demonstrated prostatic adenocarcinoma with evidence of androgen deprivation. Left seminal vesicle biopsy was negative. Right sided prostatic biopsies were negative as well. Patient's tumor could not be grouped secondary to recent androgen deprivation therapy receive through Dr. Pagan's office. Patient has a follow-up with Dr. Graf to discuss options at that point. PAST MEDICAL HISTORY Diagnosis Date - Hypertension - Prostate cancer (HCC) 05/10/2014 - Prostate cancer (HCC) Social History Socioeconomic History Marital status: Spouse name: Not on file Number of children: Not on file Years of education: Not on file Highest education level: Not on file Occupational History Not on file Social Needs Financial resource strain: Not on file Food insecurity: Worry: Not on file Inability: Not on file Transportation needs: Medical: Not on file Non-medical: Not on file Tobacco Use Smoking status: Never Smoker Smokeless tobacco: Never Used Substance and Sexual Activity Alcohol use: No Drug use: Never Sexual activity: Not on file Lifestyle Physical activity: Days per week: Not on file Minutes per session: Not on file Stress: Not on file Relationships Social connections: Talks on phone: Not on file Gets together: Not on file Attends christian service: Not on file Active member of club or organization: Not on file Attends meetings of clubs or organizations: Not on file Relationship status: Not on file Intimate partner violence: Fear of current or ex partner: Not on file Emotionally abused: Not on file Physically abused: Not on file Forced sexual activity: Not on file Other Topics Concerns: Not on file Social History Narrative Not on file FAMILY HISTORY Problem Relation Age of Onset - Prostate Cancer Father mets to bones - Prostate Cancer Brother - Leukemia Mother 59 - Cancer Paternal Grandfather unknown type - Cancer Other maternal first cousin, unknown type - other (lymphoma) Maternal Uncle Past medical, social and family history reviewed without any changes. REVIEW OF SYSTEMS GENERAL: No weight loss, malaise or fevers. No night sweats. HEENT: Negative for headaches, No changes in hearing or vision, no nose bleeds or other nasal problems. RESPIRATORY: Negative for cough, wheezing and shortness of breath CARDIOVASCULAR: Negative for chest pain, leg swelling and palpitations GI: Negative for abdominal discomfort, blood in stools or black stools and change in bowel habits : Negative for dysuria, frequency and incontinence MUSCULOSKELETAL: Negative for joint pain or swelling, back pain, and muscle pain. SKIN: Negative for lesions, rash, and itching. HEMATOLOGY/LYMPHOLOGY Negative for prolonged bleeding, bruising easily, and swollen nodes. NEURO: Negative for numbness or tingling of hands/feet. No weakness. PHYSICAL EXAMINATION: BP 148/74 Pulse 81 Temp (Src) 97.8 (Oral) Resp 18 Ht 5' 8.425 (1.74m) Wt 205 lb 9.6 oz (93.3kg) SpO2 99% BMI 30.87 kg/(m2). Wt 93.3 kg (205 lb 9.6 oz) BMI 30.87 kg/m2 Last 3 Encounter Wt Readings: Date: Wt: 08/02/2019 93.3 kg (205 lb 9.6 oz) 06/23/2019 94.5 kg (208 lb 6.4 oz) 11/12/2018 98.2 kg (216 lb 9.6 oz) General appearance:ECOG PERFORMANCE STATUS: 0- Fully active, able to carry on all pre-disease performance w/o restriction. Patient in NAD. Skin: Skin color, texture, turgor normal. No rashes or lesions. Eyes: Anicteric sclera. Pupils are equally round and reactive to light. Extraocular movements are intact. Lymph Nodes: No cervical, supraclavicular, axillary or inguinal adenopathy. Oropharynx: Lips, mucosa, and tongue normal. Back: No pain to percussion. Negative SLR test Lungs clear to auscultation, No wheezing or rhonchi Heart: RRR without murmur, gallop, or rubs. Abdomen soft, non-tender. No masses, organomegaly Extremities: No deformities. No edema Neuro: Gait and speech normal. Reflexes normal and symmetric. Muscular strength intact. Sensation grossly intact. Rectal: Deferred : Deferred LABS: Creatinine (mg/dL) Date Value 06/28/2019 1.01 No results found for: WBC, RBC, HB, HCT, MCV, MCH, MCHC, RDWCV, PLT, MPV, MPV, NEUT, ABSNEUT, LYMPHP, ABSLYMPH, MONOP, ABSMONO, EOSINP, ABSEOSIN, BASOP, ABSBASO PATH: Prostate biopsy July 23, 2019: 1. Left base prostate, biopsy (A) - Prostatic adenocarcinoma with evidence of androgen deprivation effect involving 30% of one of two biopsy cores. - The maximum length of the carcinoma in the biopsy core is 4 mm. 2. Left mid prostate, biopsy (B) - Prostatic adenocarcinoma with evidence of androgen deprivation effect involving 30% of one of two biopsy cores. - The maximum length of the carcinoma in the biopsy core is 4 mm. 3. Left apex prostate, biopsy (C) - Prostatic adenocarcinoma with evidence of androgen deprivation effect involving 25% of one of two biopsy cores. - The maximum length of the carcinoma in the biopsy core is 2.5 mm. 4. Left seminal vesicle, biopsy (D) - Benign seminal vesicle. 5. Right base, right mid, right apex prostate, biopsy (E, F, G) - Benign prostatic parenchyma. 6. Right seminal vesicle, biopsy (H) - Benign seminal vesicle. Prostate Cancer Biopsy Summary Number of cores examined: 14 Number of cores positive: 3 Highest Grade Group: Not applicable (androgen deprivation effect present) Highest % of core involvement: 30% Cribriform pattern 4: Not applicable (androgen deprivation effect present) Intraductal carcinoma: Absent Imaging: As Per Treatment section Assessment and Plan: Mahendra Vaughn is a 64 year old year old male here for follow up. We had a lengthy discussion in regards to various therapeutic options. Patient has an appointment with Dr. Graf next week to discuss either proceeding with surgical resection, cryotherapy and or proceeding with medical therapy with LHRH agonist in the setting of the PSA rise in a non metastatic hormone sensitive patient. I will see patient after he has had a discussion with Dr. Graf to discuss further planning. Thank you for the kind referral. If there are any questions and or concerns please do not hesitate to contact me at [phone]. Vee Castro MD Hematology/Medical Oncology [facility] CC: Chilo Rodriguez II, MD - (Inactive), In [facility] (Inactive) [address] [place] [address] (Ph) Tino Graf M.D. [facility] CNPDanya 07-26-2019 CNPN Telephone (GMTAUS) -- MAHENDRA VAUGHN ([id number]) 1955 [facility] Date Time Provider Department 07/26/19 TRELL LEBLANC () GMTAUS During your visit today, we recorded the following information about you: Trell Leblanc CGC 07/26/2019 10:05 AM Signed Left message to discuss genetic test results. My contact information was provided. Trell Leblanc CGC 07/26/2019 3:24 PM Signed Patient name and was confirmed at initiation of discussion. HISTORY Mahendra Vaughn is a 64 year old male with a personal and family history of cancer. He was seen on 07/16/2019, initially referred for genetic counseling and risk assessment by Dr. Vee Castro to discuss the possibility of a genetic predisposition to cancer. At that initial visit the patient chose to pursue next generation sequencing for hereditary cancer syndromes. At that time, a plan was made to discuss these results by telephone when available. The patient's medical history, family history, genetic testing results, and plan were reviewed with Dr. Love Cantu prior to contacting the patient. RESULTS Mahendra Vaughn's Common Hereditary Cancers Panel through [employer] was negative for a deleterious mutation. A scanned copy of this test report is available through [facility] chart review under the lab tab, listed as external lab - miscellaneous lab. RISK ASSESSMENT AND PLAN The Common Hereditary Cancer Panel includes APC, ILA, AXIN2, BARD1, BMPR1A, BRCA1, BRCA2, BRIP1, CDH1, CDK4, CDKN2A, CHEK2, CTNNA1, DICER1, EPCAM, GREM1, HOXB13, KIT, MEN1, MLH1, MSH2, MSH3, MSH6, MUTYH, NBN, NF1, NTHL1, PALB2, PDGFRA, PMS2, POLD1, POLE, PTEN, RAD50, RAD51C, RAD51D, SDHA, SDHB, SDHC, SDHD, SMAD4, SMARCA4, STK11, TP53, TSC1, TSC2, VHL.. This negative result makes a hereditary cancer syndrome less likely as the explanation for the patient's personal and family history of cancer. However, it cannot completely rule out this possibility. There are several possible explanations for a negative genetic testing result: 1. It is estimated that a small percentage of mutations are not detected with the utilized testing technology. These negative results make a hereditary cancer syndrome less likely, but they do not entirely rule out the possibility that a mutation exists in these genes that could not be detected. 2. There may be other genes that increase the odds of cancer for which there is no testing at this time, or testing was not indicated by the personal or family history. 3. Cancer is common. Cancer may be due to chance. 4. Some families have clustering of cancer. In these families, the risk of cancer may be higher than the general population. These cancers are likely attributed to shared genetic, environmental, and lifestyle factors. For these reasons, genetic counseling and consideration of genetic testing is suggested for the patient?s brother. The patient is encouraged to keep us informed of any changes to the family history including relatives? genetic test results. At the present time, a strong genetic factor increasing the risk for cancer in this family has not been identified. The patient should continue to follow the medical management recommendations as determined by health care providers based on own personal history and family history. Currently, an underlying genetic etiology for the cancer in the family is not known. For the patient?s family members, any cancer surveillance planning should involve inclusion of a patient's personal physician and an assessment of their personal risk factors. Family members should also be sure that their personal physicians are aware of all of the cancer diagnoses in the family so that additional cancer surveillance measures can be considered, if appropriate. Please also note that the recommendation above may be altered if new genetic information relevant to this family is learned. The patient was encouraged to recontact us with any changes to the personal or family history of cancer as this may affect risk assessments. Additionally the patient should contact us every few years to inquire about new genetic testing options. After discussing the implications of these results in regards to the patients risks and the risks for their family members, a copy of this discussion, a copy of their genetic testing results and educational information regarding these results will be mailed to the patient. Trell Leblanc MS, [facility] CC: Dr. Vee Dunbar SEND TO PATIENT: Copy of Encounter, Genetic Testing Results Allergies As of Date: 07/26/2019 Noted Allergy Reaction BACTRIM (SULFAMETHOXAZOLE-TRIMETH* 07/18/2016 2 - Rash Date Reviewed: 07/23/2019 Reviewed by: Ashlee Fried Ma - Fully Assessed Reason for Visit: Results [95] Prescriptions as of 07/26/2019 Sig: BICALUTAMIDE 50 MG TABLET Take 50 mg by mouth once jose* OMEPRAZOLE 20 MG CAPSULE,CHASTITY* Take 20 mg by mouth once jose* LISINOPRIL 20 MG-HYDROCHLOROT* Take 1 tablet by mouth once d* CETIRIZINE ORAL Take 10 mg by mouth once jose* Problem List As Of Date 07/26/2019 Noted Resolved Prostate cancer (HCC) [C61] INVALID FOR* History of prostate cancer [Z85.46] INVALID FOR* Rising PSA following treatment for malignant ne*INVALID FOR* Benign prostatic hyperplasia with lower urinary*INVALID FOR* Encounter Status:Closed by TRELL LEBLANC on 07/26/19 Normal [facility] CNOVon 07-23-2019 CNOV Office Visit (UROSMN ) -- MAHENDRA VAUGHN ([id number]) [address] [facility] Date Time Provider Department 07/23/19 7:30 AM TINO GRAF UROSMN During your visit today, we recorded the following information about you: Ashlee Fried Ma 07/23/2019 9:15 AM Signed PRE PROCEDURE ASSESSMENT- TRUS Bx Procedure/Indication: TRUS with Fusion Biopsy July 23, 2019, Time In: 0825 Latex Allergy: No Allergies reviewed and updated Yes Pre-Procedure Vital Signs: BP: 161/77 Pulse: 60 Heart Valve replacement: No Joint replacement: No Do you currently have an infection: No Anticoagulant: No Back Office UA obtained: yes Patient brought to procedure room # 10 @ time 0825. Ashlee Fried Ma PROCEDURE PREP- TRUS BX Patient ID with two(2)identifiers verified by: Ashlee Fried Ma Heart valve replacement: No Joint Replacement: No Pre-Procedure Antibiotics: Gentamicin 120 mg IM, given during visit @ 0840 , by ashlee fried ma The amount of Gentamicin discarded was 0 mg. Levaquin 750 mg orally, given during visit @ 0840 , by ashlee fried ma Anesthetic given: Administered by MD - see Procedure Physician Note. Ashlee Fried Ma UNIVERSAL PROTOCOL / SAFETY CHECKLIST Procedure to be performed: TRUS with Biopsy Sign in Communication: Completed Time Out: Team Confirms the Correct Patient, Correct Procedure, Correct Site and Site Marking, Correct Position (if applicable) Sign Out Discussion: Completed Ashlee Fried Ma POST PROCEDURE NURSE ASSESSMENT Present along with physician during procedure exam. Ashlee Fried Ma Procedure/Indication:TRUS with Biopsy. Instruction sheet given and reviewed and patient verbalizes understanding: yes Current pain intensity is 0 on a 0-10 pain scale. Post-Procedure Medications: None given Ashlee Fried Ma PATIENT EDUCATION THE FOLLOWING WAS EVALUATED Motivation To Learn: Interested Family/Significant Other Support: High - Very involved in pt care Cognitive Ability: Alert/Oriented Patient Learns Best By: Individual instruction Written instruction - handouts Verbal instruction The Following Influencing Factors Were Barriers To This Education Session: None The Following Physical Limitations Were Barriers To This Education Session: None Instruction Provided To:Patient Licensed Therapist Present: not applicable Discipline: Nursing Learning Topic: Survival Skills: Complication Prevention Patient Evaluation: Verbalizes understanding: Yes Supplemental Material Given: Written Material Instructed By Ashlee Fried Ma In Department Urology . Tino Graf MD 08/29/2019 6:29 PM Signed [facility] NOTE / UNIVERSAL PROTOCOL / SAFETY CHECKLIST Sign In History and Physical Exam reviewed and is unchanged. Primary Diagnosis: Prostate CA, PSA recurr. after XRT Sign in Communication: Completed Time Out: Immediately prior to procedure, Team Confirms the Correct Patient, Correct Procedure; TRUS with Biopsy, Correct Site and Site Marking, Correct Position (if applicable). Sign Out: Sign Out Discussion: Completed Antibiotic(s) given immediately prior to procedure: Gentamicin 80 mg IM and Levofloxacin 750 mg PO Details of Procedure: Informed consent was obtained and signed. The patient was placed in the left lateral decubitus position. The transrectal ultrasound probe was placed in the rectum. Imaging in transverse and longitudinal views was done with the findings as indicated. No hypoechoic lesions noted. Lidocaine prostate block given without complications. Multiple biopsies of the prostate via needle were obtained using ultrasonic guidance into the rectum. 12 cores prostate biopsy completed along with 2 cores from SV's without incident. Post procedure instructions were given to the patient in detail per post op instruction sheet. Patient will be contacted with the biopsy result when available. f/u with me and 2nd opinion from [facility] at [facility] Tino Graf MD 07/23/2019 9:02 AM Referring Provider: SELF [200] Allergies As of Date: 07/23/2019 Noted Allergy Reaction BACTRIM (SULFAMETHOXAZOLE-TRIMETH* 07/18/2016 2 - Rash Date Reviewed: 07/23/2019 Reviewed by: Ashlee Fried Ma - Fully Assessed Primary Visit Diagnosis:Elevated prostate specific antigen (PSA) [R97.20] Other Visit Diagnoses:Screening for genitourinary condition [Z13.89] Malignant neoplasm of prostate (HCC) [C61] Order(s):[] gentamicin 40 mg/mL 120 mg injectionDisp: Rfl: [] levoFLOXacin 750 mg tab(s) (LEVAQUIN)Disp: Rfl: US PROSTATE BIOPSY (POC) GUKI USE ONLY [[id number]] Order #: [id number]: 1 UA DIP, URINE (POC) [[id number]] Order #: [id number]. #:[id number] -LAB SURGICAL PATHOLOGY [[id number]] Order #: [id number]. #:[id number] CONSULT TO HEMATOLOGY/ONCOLOGY [[id number]] Order #: [id number]: 1 Prescriptions as of 07/23/2019 Sig: X BICALUTAMIDE 50 MG TABLET Take 50 mg by mouth once jose* OMEPRAZOLE 20 MG CAPSULE,CHASTITY* Take 20 mg by mouth once jose* LISINOPRIL 20 MG-HYDROCHLOROT* Take 1 tablet by mouth once d* CETIRIZINE ORAL Take 10 mg by mouth once jose* Problem List As Of Date 07/23/2019 Noted Resolved Prostate cancer (HCC) [C61] INVALID FOR* History of prostate cancer [Z85.46] INVALID FOR* Rising PSA following treatment for malignant ne*INVALID FOR* Benign prostatic hyperplasia with lower urinary*INVALID FOR* Visit Notes: >> Ashlee Fried Ma Fri Jul 23, 2019 8:15 AM Status: Signed PRE PROCEDURE ASSESSMENT- TRUS Bx Procedure/Indication: TRUS with Fusion Biopsy July 23, 2019, Time In: 0825 Latex Allergy: No Allergies reviewed and updated Yes Pre-Procedure Vital Signs: BP: 161/77 Pulse: 60 Heart Valve replacement: No Joint replacement: No Do you currently have an infection: No Anticoagulant: No Back Office UA obtained: yes Patient brought to procedure room # 10 @ time 0825. Ashlee Fried Ma PROCEDURE PREP- TRUS BX Patient ID with two(2)identifiers verified by: Aslhee Fried Ma Heart valve replacement: No Joint Replacement: No Pre-Procedure Antibiotics: Gentamicin 120 mg IM, given during visit @ 0840 , by ashlee fried ma The amount of Gentamicin discarded was 0 mg. Levaquin 750 mg orally, given during visit @ 0840 , by ashlee fried ma Anesthetic given: Administered by MD - see Procedure Physician Note. Ashlee Fried Ma UNIVERSAL PROTOCOL / SAFETY CHECKLIST Procedure to be performed: TRUS with Biopsy Sign in Communication: Completed Time Out: Team Confirms the Correct Patient, Correct Procedure, Correct Site and Site Marking, Correct Position (if applicable) Sign Out Discussion: Completed Ashlee Fried Ma POST PROCEDURE NURSE ASSESSMENT Present along with physician during procedure exam. Ashlee Fried Ma Procedure/Indication:TRUS with Biopsy. Instruction sheet given and reviewed and patient verbalizes understanding: yes Current pain intensity is 0 on a 0-10 pain scale. Post-Procedure Medications: None given Ashlee Fried Ma PATIENT EDUCATION THE FOLLOWING WAS EVALUATED Motivation To Learn: Interested Family/Significant Other Support: High - Very involved in pt care Cognitive Ability: Alert/Oriented Patient Learns Best By: Individual instruction Written instruction - handouts Verbal instruction The Following Influencing Factors Were Barriers To This Education Session: None The Following Physical Limitations Were Barriers To This Education Session: None Instruction Provided To:Patient Licensed Therapist Present: not applicable Discipline: Nursing Learning Topic: Survival Skills: Complication Prevention Patient Evaluation: Verbalizes understanding: Yes Supplemental Material Given: Written Material Instructed By Ashlee Fried Ma In Department Urology . Prescriptions ordered this encounter Disp Refills Start End GENTAMICIN 40 MG/ML INJECTION SOLUTI* 07/23/2019 07/23/2019 Route: INTRAMUSCULA LEVOFLOXACIN 750 MG TABLET 07/23/2019 07/23/2019 Route: ORAL Disposition: Return in about 2 weeks (around 08/06/2019). Follow-up and Disposition History Recorded Encounter Status:Closed by TINO GRAF MD on 08/29/19 [facility] PROGRESSon 07-23-2019 PROGRESS HNO ID: [id number] Author: Tino Graf Service: ? Author Type: Physician Type: Progress Notes Filed: 08/29/2019 6:29 PM Note Text: [facility] NOTE / UNIVERSAL PROTOCOL / SAFETY CHECKLIST Sign In History and Physical Exam reviewed and is unchanged. Primary Diagnosis: Prostate CA, PSA recurr. after XRT Sign in Communication: Completed Time Out: Immediately prior to procedure, Team Confirms the Correct Patient, Correct Procedure; TRUS with Biopsy, Correct Site and Site Marking, Correct Position (if applicable). Sign Out: Sign Out Discussion: Completed Antibiotic(s) given immediately prior to procedure: Gentamicin 80 mg IM and Levofloxacin 750 mg PO Details of Procedure: Informed consent was obtained and signed. The patient was placed in the left lateral decubitus position. The transrectal ultrasound probe was placed in the rectum. Imaging in transverse and longitudinal views was done with the findings as indicated. No hypoechoic lesions noted. Lidocaine prostate block given without complications. Multiple biopsies of the prostate via needle were obtained using ultrasonic guidance into the rectum. 12 cores prostate biopsy completed along with 2 cores from SV's without incident. Post procedure instructions were given to the patient in detail per post op instruction sheet. Patient will be contacted with the biopsy result when available. f/u with me and 2nd opinion from [facility] Tino Graf MD 07/23/2019 9:02 AM Normal [facility] SURGICAL PATHOLOGYon 019 SURGICAL PATHOLOGY Specimen originated from [facility] Specimen #: [id number] Submitting Physician: TINO GRAF M.D. (Q10) FINAL DIAGNOSIS 1. Left base prostate, biopsy (A) - Prostatic adenocarcinoma with evidence of androgen deprivation effect involving 30% of one of two biopsy cores. - The maximum length of the carcinoma in the biopsy core is 4 mm. 2. Left mid prostate, biopsy (B) - Prostatic adenocarcinoma with evidence of androgen deprivation effect involving 30% of one of two biopsy cores. - The maximum length of the carcinoma in the biopsy core is 4 mm. 3. Left apex prostate, biopsy (C) - Prostatic adenocarcinoma with evidence of androgen deprivation effect involving 25% of one of two biopsy cores. - The maximum length of the carcinoma in the biopsy core is 2.5 mm. 4. Left seminal vesicle, biopsy (D) - Benign seminal vesicle. 5. Right base, right mid, right apex prostate, biopsy (E, F, G) - Benign prostatic parenchyma. 6. Right seminal vesicle, biopsy (H) - Benign seminal vesicle. Prostate Cancer Biopsy Summary Number of cores examined: 14 Number of cores positive: 3 Highest Grade Group: Not applicable (androgen deprivation effect present) Highest % of core involvement: 30% Cribriform pattern 4: Not applicable (androgen deprivation effect present) Intraductal carcinoma: Absent SEBAS/coral 07/26/2019 Parker Beck M.D. (Electronic Signature) SPECIMEN SUBMITTED A: LEFT BASE X2 PROSTATE, BIOPSY B: LEFT MID X2 PROSTATE, BIOPSY C: LEFT APEX X2 PROSTATE, BIOPSY D: LEFT SEMINAL VESICLE X1 PROSTATE, BIOPSY E: RIGHT BASE X2 PROSTATE, BIOPSY F: RIGHT MID X2 PROSTATE, BIOPSY G: RIGHT APEX X2 PROSTATE, BIOPSY H: RIGHT SEMINAL VESICLE X1 PROSTATE, BIOPSY CLINICAL DATA elevated psa GROSS DESCRIPTION A. Received in alcoholic formalin on Telfa gauze are two segments of cylindrical tissue ranging in length from 1.9-2.1 and averaging 0.1 cm in diameter, friedman and of a soft and friable consistency. A portion of one core may not survive processing. Totally submitted in formalin in one cassette. B. Received in alcoholic formalin on Telfa gauze are two segments of cylindrical tissue ranging in length from 1.5-1.9 and averaging 0.1 cm in diameter, friedman and of a soft and friable consistency. Totally submitted in formalin in one cassette. Gross examination performed at [facility], [address] [place] [address] 07/23/2019 4:47:05 PM C. Received in alcoholic formalin on Telfa gauze are two segments of cylindrical tissue ranging in length from 1.0-1.2 cm and averaging 0.1 cm in diameter, friedman and of a soft and friable consistency. A portion of one core may not survive processing. Totally submitted in formalin in one cassette. D. Received in alcoholic formalin on Telfa gauze is one cylindrical tissue measuring 1.8 x 0.1 x0.1 cm, friedman and of a soft and friable consistency. A portion of one core may not survive processing. Totally submitted in formalin in one cassette. E. Received in alcoholic formalin on Telfa gauze are two segments of cylindrical tissue ranging in length from 1.2-1.5 cm and averaging 0.1 cm in diameter, friedman and of a soft and friable consistency. A portion of one core may not survive processing. Totally submitted in formalin in one cassette. F. Received in alcoholic formalin on Telfa gauze are two segments of cylindrical tissue ranging in length from 1.2-1.6 cm and averaging 0.1 cm in diameter, friedman and of a soft and friable consistency. A portion of one core may not survive processing. Totally submitted in formalin in one cassette. G. Received in alcoholic formalin on Telfa gauze are two segments of cylindrical tissue ranging in length from 1.8-1.2 cm and averaging 0.1 cm in diameter, friedman and of a soft and friable consistency. A portion of one core may not survive processing. Totally submitted in formalin in one cassette. H. Received in alcoholic formalin on Telfa gauze is one cylindrical tissue measuring 1.8 x 0.1 x0.1 cm, friedman and of a soft and friable consistency. A portion of one core may not survive processing. Totally submitted in formalin in one cassette. Gross examination performed at [facility], [address] [place] [address] 07/23/2019 5:33:45 PM Date of Report: 07/27/2019 Date of Procedure: 07/23/2019 Date of Receipt: 07/23/2019 Submitted by: TINO GRAF M.D. (Q10) Location: UROS Diagnostic interpretation performed at [place] [address]. [facility] Number: [id number] Normal [facility] CNOVon 07-16-2019 CNOV Office Visit (UROLMN ) -- MAHENDRA VAUGHN ([id number]) 1955 [facility] Date Time Provider Department 07/16/19 1:20 PM TINO GRAF During your visit today, we recorded the following information about you: Tino Graf MD 08/09/2019 3:33 PM Signed Consultation requested by Dr. Castro for an opinion regarding malignant neoplasm of the prostate. My final recommendations will be communicated back to the requesting physician by way of shared Medical record or letter to requesting physician via US mail. CHIEF COMPLAINT: Prostate Cancer HPI Mr. Vaughn is a 64 y/o male who presents for consultation regarding prostate cancer. Diagnosed with Gl 7 CaP in 2009, treated with radiation therapy. He has not obtained a prostate biopsy since starting radiation. Has elevated PSA, most recently 3.16 (05/17/19). Denies urinary symptoms. He started Lupron 2-3 weeks ago. He is currently seeing a Urologist who ordered the lupron shot, was referred to a Medical Oncologist who recommended obtaining the MRI Prostate and CT Chest, and saw a genetic counselor. Notes that his left testicle is causing him pain. That has been occurring for a few years. PMH: HTN PSH: umbilical hernia, vasectomy 1-Duration: 2009 2-Location: prostate 3-Severity: see pathology, labs 4-Quality: Not applicable 5-Context: Biopsy, Screening 6-Timing: constantly 7-Modifying factors: radiation 8-Associated signs AND symptoms: no additional symptoms Family History of Genitourinary Cancer: Yes, Fa and Bro had CaP LABS Per outside reports Prostate biopsy 10/12/10 Gl 4+3, 3 positive cores PSA 05/17/19 - 3.160 PSA (ng/mL) Date Value 07/17/2017 0.86 07/18/2016 0.56 07/20/2015 0.68 06/16/2014 0.77 Creatinine (mg/dL) Date Value 06/28/2019 1.01 No results found for: INR UA today - negative IMAGING 07/07/19 MRI Prostate IMPRESSION: NO LESION WITH IMAGING FINDINGS SUSPICIOUS FOR CLINICALLY SIGNIFICANT PROSTATE CANCER. NO LYMPHADENOPATHY. CT Chest with contrast 06/28/19 IMPRESSION: 3 mm left upper lobe nodule. Given the patient's history, correlation with follow-up examinations is suggested to assess for stability. REVIEW OF SYSTEMS GENERAL:SEE HPI, No weight loss, malaise or fevers. HEENT:Negative for frequent or significant headaches, No changes in hearing or vision, no nose bleeds or other nasal problems RESPIRATORY: Negative for cough, wheezing or shortness of breath. CARDIOVASCULAR: Negative for chest pain, leg swelling or palpitations. GASTROINTESTINAL: Negative for abdominal discomfort, blood in stools or black stools or change in bowel habits GENITOURINARY: No history of dysuria, frequency or incontinence MARINA MANAGER: Negative for abnormal vaginal bleeding, abnormal vaginal discharge MUSCULOSKELETAL: Negative for joint pain or swelling, back pain or muscle pain. NEUROLOGIC:Negative for focal numbness or weakness, headaches and dizziness or syncope. HEMATOLOGIC/LYMPHATIC/IMMU NOLOGIC:Negative for prolonged bleeding, bruising easily or swollen nodes. ENDOCRINE: Negative for cold or heat intolerance, polyuria, polydipsia and goiter. The remainder of the ROS was negative. HISTORIES PAST MEDICAL HISTORY Diagnosis Date - Hypertension - Prostate cancer (HCC) 05/10/2014 - Prostate cancer (HCC) PAST SURGICAL HISTORY Procedure Laterality Date - HERNIA REPAIR HX 03/01/2014 - TONSILLECTOMY HX - VASECTOMY FAMILY HISTORY Problem Relation Age of Onset - Prostate Cancer Father - Prostate Cancer Brother SOCIAL HISTORY Social History Tobacco Use - Smoking status: Never Smoker - Smokeless tobacco: Never Used Substance Use Topics - Alcohol use: No - Drug use: Not on file Current Outpatient Medications: bicalutamide (CASODEX) 50 mg tablet Take 50 mg by mouth once daily. omeprazole (PRILOSEC) 20 mg capsule Take 20 mg by mouth once daily. lisinopril-hydrochlorothia zide (PRINZIDE, ZESTORETIC) 20-25 mg per tablet Take 1 tablet by mouth once daily. CETIRIZINE HCL (CETIRIZINE ORAL) Take 10 mg by mouth once daily. No current facility-administered medications for this visit. PHYSICAL EXAMINATION General appearance: Well appearing, alert, in no acute distress and well-hydrated, well nourished Back: no pain to palpation over spine or costovertebral angles, reflexes are 2+ and symmetric, motor and sensory appear to be normal Lungs: Clear to auscultation no wheezing or rhonchi Heart: RRR without murmur, gallop, or rubs. No ectopy Abdomen: Normal abdominal exam, Abdomen soft, non-tender. Bowel sounds normal. No masses, organomegaly Extremities: Extremities normal. No deformities, edema, or skin discoloration. Good capillary refill. Musculoskeletal: Spine range of motion normal. Muscular strength intact, No joint swelling, deformity, or tenderness Genitourinary: deferred IMPRESSION 64 yo M presents with GL 7 CaP and elevated PSA to 3.16 (05/17/2019) s/p radiation therapy. PLAN The treatment options for prostate cancer including active surveillance, radical prostatectomy, cryoablation, and androgen deprivation therapy were discussed with the patient. Patient would like to reflect on where he would like to get treated. He will contact office with decision. -TRUS prostate biopsy -RTC in 2 weeks -Consult Dr. Marie for chronic L testicular pain Scribe Attestation: By signing my name below, ISuzan, attest that this documentation has been prepared under the direction and in the presence of Dr. Bennie Huizar MD. Electronically signed: Melquiades Medina, July 16, 2019 1:49 PM ITino MD, personally performed the services described in this documentation. All medical record entries made by the scribe were at my direction and in my presence. I have reviewed the chart and discharge instructions (if applicable) and agree that the record reflects my personal performance and is accurate and complete. Tino Graf MD Scribe Attestation: By signing my name below, Chong Rutherford attreyna that this documentation has been prepared under the direction and in the presence of Dr. Tino Graf MD. Electronically signed: Melquiades Johns, July 16, 2019 2:33 PM Tino Rutherford MD, personally performed the services described in this documentation. All medical record entries made by the scribe were at my direction and in my presence. I have reviewed the chart and discharge instructions (if applicable) and agree that the record reflects my personal performance and is accurate and complete. Tino Graf MD Referring Provider: VEE CASTRO) [[id number]] Allergies As of Date: 07/16/2019 Noted Allergy Reaction BACTRIM (SULFAMETHOXAZOLE-TRIMETH* 07/18/2016 2 - Rash Date Reviewed: 07/07/2019 Reviewed by: Ayah Magana (Rn) FARA Vargas - Fully Assessed Primary Visit Diagnosis:Prostate cancer (HCC) [C61] Other Visit Diagnosis:Elevated prostate specific antigen (PSA) [R97.20] Order(s):US PROSTATE BIOPSY MIRIAM [[id number]] Order #: [id number] Prescriptions as of 07/16/2019 Sig: X BICALUTAMIDE 50 MG TABLET Take 50 mg by mouth once jose* OMEPRAZOLE 20 MG CAPSULE,CHASTITY* Take 20 mg by mouth once jose* LISINOPRIL 20 MG-HYDROCHLOROT* Take 1 tablet by mouth once d* CETIRIZINE ORAL Take 10 mg by mouth once jose* Problem List As Of Date 07/16/2019 Noted Resolved Prostate cancer (HCC) [C61] INVALID FOR* History of prostate cancer [Z85.46] INVALID FOR* Rising PSA following treatment for malignant ne*INVALID FOR* Benign prostatic hyperplasia with lower urinary*INVALID FOR* Disposition: Return in about 2 weeks (around 07/30/2019). Follow-up and Disposition History Recorded Encounter Status:Closed by TINO GRAF MD on 08/09/19 Normal [facility] CNOVSPon 07-16-2019 CNOVSP Visit (SP) Office (G [facility]) -- MAHENDRA VAUGHN ([id number]) [address] [facility] Date Time Provider Department 07/16/19 11:00 AM TRELL LEBLANC () KE During your visit today, we recorded the following information about you: Trell Leblanc CGC 07/16/2019 2:33 PM Addendum [facility] Consultation Note Genetic Counselor: Trell Leblanc MS, [facility] Patient: Mahendra Vaughn Patient Name and confirmed at initiation of visit HIGH LEVEL SUMMARY: ? The patient's personal and family history is potentially suggestive of a hereditary prostate cancer syndrome. ? The patient provided informed consent for Common Hereditary Cancers Panel through [facility]. Results are expected in 2-3 weeks. IDENTIFICATION AND CHIEF COMPLAINT: Dr. Saleem () Golria requested a consultation for genetic counseling and risk assessment for Mahendra Vaughn, a 64 year old male, for discussion of his personal and family history of cancer. He presents to clinic today to discuss the possibility of a genetic predisposition to cancer, and to further clarify his risks, as well as his family members' risks for cancer. HISTORY OF PRESENT ILLNESS: In 2009 or 2010, at the age of , Mahendra Vaughn was diagnosed with prostate cancer with norma score 7 in 2010, This was treated with radiation therapy. CT and Bone scan 05/17/2019 which did not demonstrate any evidence of metastatic disease Mahendra Vaughn is a 64 year old male with a personal history of cancer. PAST MEDICAL HISTORY Diagnosis Date - Hypertension - Prostate cancer (HCC) 05/10/2014 - Prostate cancer (HCC) PAST SURGICAL HISTORY Procedure Laterality Date - HERNIA REPAIR HX 03/01/2014 - TONSILLECTOMY HX - VASECTOMY CANCER SURVEILLANCE HISTORY: Colonoscopy: Yes / about 6-7 years ago EGD:No GI Polyps: No Prostate Cancer surveillance: Yes / PSA Dermatology: Yes / basal cell carcinoma on head, mole removed from face - benign, as needed SOCIAL HISTORY: Social History Tobacco Use - Smoking status: Never Smoker - Smokeless tobacco: Never Used Substance Use Topics - Alcohol use: No - Drug use: Not on file FAMILY HISTORY: We obtained a detailed, 4-generation family history. Significant diagnoses are listed below: FAMILY HISTORY Problem Relation Age of Onset - Prostate Cancer Father mets to bones - Prostate Cancer Brother - Leukemia Mother 59 - Cancer Paternal Grandfather unknown type - Cancer Other maternal first cousin, unknown type - other (lymphoma) Maternal Uncle The patient's maternal and paternal ancestors are of unknown descent. There is no known Ashkenazi Adventism ancestry. There is no known consanguinity. A copy of the patient's pedigree will be available under the scanned documents tab following today's visit. GENETIC COUNSELING RISK ASSESSMENT, DISCUSSION, AND SUGGESTED FOLLOW UP: We reviewed the natural history and genetic etiology of sporadic, familial and hereditary cancer syndromes. The patient's personal and family history is potentially suggestive of: a hereditary prostate cancer syndrome The patient meets NCCN HBOC testing criteria based on his personal history of prostate cancer with Norma score 7 and his father, who is unavailable for testing, with metastatic prostate cancer. We discussed that identification of a hereditary cancer syndrome may help his care providers tailor his medical management. If a mutation is detected, the National Comprehensive Cancer Network and/or expert opinion recommendations would include increased cancer surveillance and possible targeted treatment options. If a mutation is detected, the patient will be referred back to the referring provider and to any additional appropriate care providers to discuss the relevant options. Inheritance of hereditary cancer syndromes was discussed with the patient. If a mutation is not found in the patient, this will decrease the likelihood of a hereditary cancer syndrome as the explanation for the patient's personal and family history of cancer. However, it cannot completely rule out this possibility. Cancer surveillance options would be discussed for the patient according to the appropriate standard National Comprehensive Cancer Network and [place] [employer] guidelines, with consideration of their personal and family history risk factors. In this case, the patient will be referred back to their care providers for discussions of management. Based on this assessment of the patient's family and personal history, genetic testing is recommended. The patient was offered Common Hereditary Cancers Panel through [facility] or Multi Cancer panel through [facility] DETECT program. After considering the risks, benefits, and limitations, the patient chose to pursue and provided informed consent for the following testing: Common Hereditary Cancers Panel through [facility]. The Common Hereditary Cancer Panel includes APC, ILA, AXIN2, BARD1, BMPR1A, BRCA1, BRCA2, BRIP1, CDH1, CDK4, CDKN2A, CHEK2, CTNNA1, DICER1, EPCAM, GREM1, HOXB13, KIT, MEN1, MLH1, MSH2, MSH3, MSH6, MUTYH, NBN, NF1, NTHL1, PALB2, PDGFRA, PMS2, POLD1, POLE, PTEN, RAD50, RAD51C, RAD51D, SDHA, SDHB, SDHC, SDHD, SMAD4, SMARCA4, STK11, TP53, TSC1, TSC2, VHL. We discussed that an NGS panel can rarely result in an unexpected finding in a gene which may or may not be related to the presenting phenotype. Per the patient's request, we will contact him by telephone to discuss these results. A follow up genetic counseling visit will be scheduled if requested. The patient was seen for a total of 35 minutes, greater than 50% of which was spent [id number] counseling. This plan is being carried out per Dr. Love Cantu's recommendations. This note will also be sent to the referring provider via the electronic medical record. Trell Leblanc MS, [facility] CC: Dr. Vee Cantu EDUCATIONAL INFORMATION SUPPLIED TO PATIENT AT ENCOUNTER: None - note will be available in [employer] INFORMATION TO BE MAILED TO PATIENT None - note will be available in myChart Referring Provider: VEE CASTRO) [[id number]] Allergies As of Date: 07/16/2019 Noted Allergy Reaction BACTRIM (SULFAMETHOXAZOLE-TRIMETH* 07/18/2016 2 - Rash Date Reviewed: 07/07/2019 Reviewed by: Ayah Magana (Rn) FARA Vargas - Fully Assessed Primary Visit Diagnosis:Family history of prostate cancer [Z80.42] Other Visit Diagnosis:Malignant neoplasm of prostate (HCC) [C61] Order(s):TUBES-DRAW EXTRA MOLECULAR [SQMXTUBE] Order #: [id number] FUTURE Prescriptions as of 07/16/2019 Sig: BICALUTAMIDE 50 MG TABLET Take 50 mg by mouth once jose* OMEPRAZOLE 20 MG CAPSULE,CHASTITY* Take 20 mg by mouth once jose* LISINOPRIL 20 MG-HYDROCHLOROT* Take 1 tablet by mouth once d* CETIRIZINE ORAL Take 10 mg by mouth once jose* Problem List As Of Date 07/16/2019 Noted Resolved Prostate cancer (HCC) [C61] INVALID FOR* History of prostate cancer [Z85.46] INVALID FOR* Rising PSA following treatment for malignant ne*INVALID FOR* Benign prostatic hyperplasia with lower urinary*INVALID FOR* Encounter Status:Closed by TRELL LEBLANC on 07/16/19 [facility] CNPNy 07-16-2019 CNPTOUTREA Patient Outreach (UR OLMN) -- MAHENDRA VAUGHN ([id number]) [address] [facility] Date Time Provider Department 07/16/19 TINO GRAF During your visit today, we recorded the following information about you: Allergies As of Date: 07/16/2019 Noted Allergy Reaction BACTRIM (SULFAMETHOXAZOLE-TRIMETH* 07/18/2016 2 - Rash Date Reviewed: 07/07/2019 Reviewed by: Ayah Magana (Rn) FARA Vargas - Fully Assessed Visit Diagnosis:Screening for genitourinary condition [Z13.89] Order(s):UA CHEMSTRIP ONLY [SQUA] Order #: [id number]. #:[id number] Prescriptions as of 07/16/2019 Sig: BICALUTAMIDE 50 MG TABLET Take 50 mg by mouth once jose* OMEPRAZOLE 20 MG CAPSULE,CHASTITY* Take 20 mg by mouth once jose* LISINOPRIL 20 MG-HYDROCHLOROT* Take 1 tablet by mouth once d* CETIRIZINE ORAL Take 10 mg by mouth once jose* Problem List As Of Date 07/16/2019 Noted Resolved Prostate cancer (HCC) [C61] INVALID FOR* History of prostate cancer [Z85.46] INVALID FOR* Rising PSA following treatment for malignant ne*INVALID FOR* Benign prostatic hyperplasia with lower urinary*INVALID FOR* Encounter Status:Closed by Poach[employer] Pareto NetworksUSER on 08/02/19 Normal [facility] Molecular Teston 2018 Test COMMON HEREDITARY CA NCERS PANEL Normal [facility] Comment on above: Performed By: #### M OL13 ####[facility] [id number] [place], [place] [phone] Test Results View results in Scan maryanne Documents link when available. Normal [facility] Comment on above: Performed By: #### M OL13 ####[facility] [address] [place], [place] [phone] PROGRESSon 07-16-2019 PROGRESS HNO ID: [id number] Author: Trell Leblanc Service: ? Author Type: Genetic Counselor Type: Progress Notes Filed: 07/16/2019 2:33 PM Note Text: [facility] For Personalized Genetic Healthcare Consultation Note Genetic Counselor: Trell Leblanc, MS, [facility] Patient: Mahendra Vaughn Patient Name and confirmed at initiation of visit HIGH LEVEL SUMMARY: ? The patient's personal and family history is potentially suggestive of a hereditary prostate cancer syndrome. ? The patient provided informed consent for Common Hereditary Cancers Panel through [facility]. Results are expected in 2-3 weeks. IDENTIFICATION AND CHIEF COMPLAINT: Dr. Vee San) Gloria requested a consultation for genetic counseling and risk assessment for Mahendra Vaughn, a 64 year old male, for discussion of his personal and family history of cancer. He presents to clinic today to discuss the possibility of a genetic predisposition to cancer, and to further clarify his risks, as well as his family members' risks for cancer. HISTORY OF PRESENT ILLNESS: In 2009 or 2010, at the age of , Mahendra Vaughn was diagnosed with prostate cancer with norma score 7 in 2010, This was treated with radiation therapy. CT and Bone scan 05/17/2019 which did not demonstrate any evidence of metastatic disease Mahendra Vaughn is a 64 year old male with a personal history of cancer. PAST MEDICAL HISTORY Diagnosis Date - Hypertension - Prostate cancer (HCC) 05/10/2014 - Prostate cancer (HCC) PAST SURGICAL HISTORY Procedure Laterality Date - HERNIA REPAIR HX 03/01/2014 - TONSILLECTOMY HX - VASECTOMY CANCER SURVEILLANCE HISTORY: Colonoscopy: Yes / about 6-7 years ago EGD:No GI Polyps: No Prostate Cancer surveillance: Yes / PSA Dermatology: Yes / basal cell carcinoma on head, mole removed from face - benign, as needed SOCIAL HISTORY: Social History Tobacco Use - Smoking status: Never Smoker - Smokeless tobacco: Never Used Substance Use Topics - Alcohol use: No - Drug use: Not on file FAMILY HISTORY: We obtained a detailed, 4-generation family history. Significant diagnoses are listed below: FAMILY HISTORY Problem Relation Age of Onset - Prostate Cancer Father mets to bones - Prostate Cancer Brother - Leukemia Mother 59 - Cancer Paternal Grandfather unknown type - Cancer Other maternal first cousin, unknown type - other (lymphoma) Maternal Uncle The patient's maternal and paternal ancestors are of unknown descent. There is no known Ashkenazi Adventism ancestry. There is no known consanguinity. A copy of the patient's pedigree will be available under the scanned documents tab following today's visit. GENETIC COUNSELING RISK ASSESSMENT, DISCUSSION, AND SUGGESTED FOLLOW UP: We reviewed the natural history and genetic etiology of sporadic, familial and hereditary cancer syndromes. The patient's personal and family history is potentially suggestive of: a hereditary prostate cancer syndrome The patient meets NCCN HBOC testing criteria based on his personal history of prostate cancer with Norma score 7 and his father, who is unavailable for testing, with metastatic prostate cancer. We discussed that identification of a hereditary cancer syndrome may help his care providers tailor his medical management. If a mutation is detected, the National Comprehensive Cancer Network and/or expert opinion recommendations would include increased cancer surveillance and possible targeted treatment options. If a mutation is detected, the patient will be referred back to the referring provider and to any additional appropriate care providers to discuss the relevant options. Inheritance of hereditary cancer syndromes was discussed with the patient. If a mutation is not found in the patient, this will decrease the likelihood of a hereditary cancer syndrome as the explanation for the patient's personal and family history of cancer. However, it cannot completely rule out this possibility. Cancer surveillance options would be discussed for the patient according to the appropriate standard National Comprehensive Cancer Network and [place] Cancer Society guidelines, with consideration of their personal and family history risk factors. In this case, the patient will be referred back to their care providers for discussions of management. Based on this assessment of the patient's family and personal history, genetic testing is recommended. The patient was offered Common Hereditary Cancers Panel through [facility] or Multi Cancer panel through [facility] DETECT program. After considering the risks, benefits, and limitations, the patient chose to pursue and provided informed consent for the following testing: Common Hereditary Cancers Panel through [facility]. The Common Hereditary Cancer Panel includes APC, ILA, AXIN2, BARD1, BMPR1A, BRCA1, BRCA2, BRIP1, CDH1, CDK4, CDKN2A, CHEK2, CTNNA1, DICER1, EPCAM, GREM1, HOXB13, KIT, MEN1, MLH1, MSH2, MSH3, MSH6, MUTYH, NBN, NF1, NTHL1, PALB2, PDGFRA, PMS2, POLD1, POLE, PTEN, RAD50, RAD51C, RAD51D, SDHA, SDHB, SDHC, SDHD, SMAD4, SMARCA4, STK11, TP53, TSC1, TSC2, VHL. We discussed that an NGS panel can rarely result in an unexpected finding in a gene which may or may not be related to the presenting phenotype. Per the patient's request, we will contact him by telephone to discuss these results. A follow up genetic counseling visit will be scheduled if requested. The patient was seen for a total of 35 minutes, greater than 50% of which was spent [id number] counseling. This plan is being carried out per Dr. Love Cantu's recommendations. This note will also be sent to the referring provider via the electronic medical record. Trell Leblanc MS, [facility] EPIC CC: Dr. Vee Cantu EDUCATIONAL INFORMATION SUPPLIED TO PATIENT AT ENCOUNTER: None - note will be available in [employer] INFORMATION TO BE MAILED TO PATIENT None - note will be available in [employer] Normal [facility] Urinalysison 07-16-2019 Bilirubin, Urine Negative [facility] Comment on above: Performed By: #### U A #### [place] [id number] [place] [phone] Clarity (U) Clear Normal Clear [facility] Comment on above: Performed By: #### U A #### [place] [phone] Color (U) Yellow Normal Yellow [facility] Comment on above: Performed By: #### U A #### [place] [phone] Comments SEE COMMENT Normal [facility] Comment on above: Result Comment: Micr oscopic not warranted Performed By: #### U A #### [place] [phone] Glucose Ql (U) Negative Normal Negative [facility] Comment on above: Performed By: #### U A #### [place] [phone] Hemoglobin/Blood,Ur Negative Normal Negative [facility] Comment on above: Performed By: #### U A #### [facility] [address] [place] [phone] Ketones Ql (U) Negative Normal Negative [facility] Comment on above: Performed By: #### U A #### [facility] [place] [address] [place] [phone] Leukest Negative Normal Negative [facility] Comment on above: Performed By: #### U A #### [facility] [place] [address] [place], [place] [phone] Nitrite Ql (U) Negative Normal Negative [facility] Comment on above: Performed By: #### U A #### [place] [phone] [place] [address] pH (Bld) 6.0 Normal 4.5-8.0 [facility] Comment on above: Performed By: #### U A #### [place] [id number] [place] [address] Protein (U) [Mass/Vol] Negative Normal Negative Cl [facility] Comment on above: Performed By: #### U A #### [place] [address] Specific [place], Ur 1.007 Normal 1.005-1 .03 0 [facility] Comment on above: Performed By: #### U A #### [place] [address] Urine Masood Comment SEE COMMENT Normal [facility] Comment on above: Result Comment: N/A Performed By: #### U A #### [place] [address] Urobilinogen Qn (U) Normal Normal Normal [facility] Comment on above: Performed By: #### U A #### [place] [address] PROGRESSon 07-14-2019 PROGRESS HNO ID: [id number] Author: Tino Graf Service: ? Author Type: Physician Type: Progress Notes Filed: 08/09/2019 3:33 PM Note Text: Consultation requested by Dr. Castro for an opinion regarding malignant neoplasm of the prostate. My final recommendations will be communicated back to the requesting physician by way of shared Medical record or letter to requesting physician via US mail. CHIEF COMPLAINT: Prostate Cancer HPI Mr. Vaughn is a 64 y/o male who presents for consultation regarding prostate cancer. Diagnosed with Gl 7 CaP in 2009, treated with radiation therapy. He has not obtained a prostate biopsy since starting radiation. Has elevated PSA, most recently 3.16 (05/17/19). Denies urinary symptoms. He started Lupron 2-3 weeks ago. He is currently seeing a Urologist who ordered the lupron shot, was referred to a Medical Oncologist who recommended obtaining the MRI Prostate and CT Chest, and saw a genetic counselor. Notes that his left testicle is causing him pain. That has been occurring for a few years. PMH: HTN PSH: umbilical hernia, vasectomy 1-Duration: 2009 2-Location: prostate 3-Severity: see pathology, labs 4-Quality: Not applicable 5-Context: Biopsy, Screening 6-Timing: constantly 7-Modifying factors: radiation 8-Associated signs AND symptoms: no additional symptoms Family History of Genitourinary Cancer: Yes, Fa and Bro had CaP LABS Per outside reports Prostate biopsy 10/12/10 Gl 4+3, 3 positive cores PSA 05/17/19 - 3.160 PSA (ng/mL) Date Value 07/17/2017 0.86 07/18/2016 0.56 07/20/2015 0.68 06/16/2014 0.77 Creatinine (mg/dL) Date Value 06/28/2019 1.01 No results found for: INR UA today - negative IMAGING 07/07/19 MRI Prostate IMPRESSION: NO LESION WITH IMAGING FINDINGS SUSPICIOUS FOR CLINICALLY SIGNIFICANT PROSTATE CANCER. NO LYMPHADENOPATHY. CT Chest with contrast 06/28/19 IMPRESSION: 3 mm left upper lobe nodule. Given the patient's history, correlation with follow-up examinations is suggested to assess for stability. REVIEW OF SYSTEMS GENERAL:SEE HPI, No weight loss, malaise or fevers. HEENT:Negative for frequent or significant headaches, No changes in hearing or vision, no nose bleeds or other nasal problems RESPIRATORY: Negative for cough, wheezing or shortness of breath. CARDIOVASCULAR: Negative for chest pain, leg swelling or palpitations. GASTROINTESTINAL: Negative for abdominal discomfort, blood in stools or black stools or change in bowel habits GENITOURINARY: No history of dysuria, frequency or incontinence MARINA MANAGER: Negative for abnormal vaginal bleeding, abnormal vaginal discharge MUSCULOSKELETAL: Negative for joint pain or swelling, back pain or muscle pain. NEUROLOGIC:Negative for focal numbness or weakness, headaches and dizziness or syncope. HEMATOLOGIC/LYMPHATIC/IMMU NOLOGIC:Negative for prolonged bleeding, bruising easily or swollen nodes. ENDOCRINE: Negative for cold or heat intolerance, polyuria, polydipsia and goiter. The remainder of the ROS was negative. HISTORIES PAST MEDICAL HISTORY Diagnosis Date - Hypertension - Prostate cancer (HCC) 05/10/2014 - Prostate cancer (HCC) PAST SURGICAL HISTORY Procedure Laterality Date - HERNIA REPAIR HX 03/01/2014 - TONSILLECTOMY HX - VASECTOMY FAMILY HISTORY Problem Relation Age of Onset - Prostate Cancer Father - Prostate Cancer Brother SOCIAL HISTORY Social History Tobacco Use - Smoking status: Never Smoker - Smokeless tobacco: Never Used Substance Use Topics - Alcohol use: No - Drug use: Not on file Current Outpatient Medications: bicalutamide (CASODEX) 50 mg tablet Take 50 mg by mouth once daily. omeprazole (PRILOSEC) 20 mg capsule Take 20 mg by mouth once daily. lisinopril-hydrochlorothia zide (PRINZIDE, ZESTORETIC) 20-25 mg per tablet Take 1 tablet by mouth once daily. CETIRIZINE HCL (CETIRIZINE ORAL) Take 10 mg by mouth once daily. No current facility-administered medications for this visit. PHYSICAL EXAMINATION General appearance: Well appearing, alert, in no acute distress and well-hydrated, well nourished Back: no pain to palpation over spine or costovertebral angles, reflexes are 2+ and symmetric, motor and sensory appear to be normal Lungs: Clear to auscultation no wheezing or rhonchi Heart: RRR without murmur, gallop, or rubs. No ectopy Abdomen: Normal abdominal exam, Abdomen soft, non-tender. Bowel sounds normal. No masses, organomegaly Extremities: Extremities normal. No deformities, edema, or skin discoloration. Good capillary refill. Musculoskeletal: Spine range of motion normal. Muscular strength intact, No joint swelling, deformity, or tenderness Genitourinary: deferred IMPRESSION 64 yo M presents with GL 7 CaP and elevated PSA to 3.16 (05/17/2019) s/p radiation therapy. PLAN The treatment options for prostate cancer including active surveillance, radical prostatectomy, cryoablation, and androgen deprivation therapy were discussed with the patient. Patient would like to reflect on where he would like to get treated. He will contact office with decision. -TRUS prostate biopsy -RTC in 2 weeks -Consult Dr. Marie for chronic L testicular pain Scribe Attestation: By signing my name below, ISuzan, attest that this documentation has been prepared under the direction and in the presence of Dr. Bennie Huizar MD. Electronically signed: Melquiades Medina, July 16, 2019 1:49 PM I, Tino Graf MD, personally performed the services described in this documentation. All medical record entries made by the scribe were at my direction and in my presence. I have reviewed the chart and discharge instructions (if applicable) and agree that the record reflects my personal performance and is accurate and complete. Tino Graf MD Scribe Attestation: By signing my name below, IChong attreyna that this documentation has been prepared under the direction and in the presence of Dr. Tino Graf MD. Electronically signed: Melquiades Johns, July 16, 2019 2:33 PM I, Tino Graf MD, personally performed the services described in this documentation. All medical record entries made by the scribe were at my direction and in my presence. I have reviewed the chart and discharge instructions (if applicable) and agree that the record reflects my personal performance and is accurate and complete. Tino Graf MD [facility] HEALTH 07-07-2019 ALLIED HEALTH HNO ID: [id number] Author: Savanna Ojeda (Tech) Service: Radiology Author Type: Community Theater Actor Type: Allied Health Filed: 07/07/2019 10:50 AM Note Text: Radiology Service Progress Note PATIENT NAME: Mahendra Vaughn DATE OF SERVICE: July 07, 2019 TIME: 10:50 AM PATIENT IDENTITY VERIFICATION COMPLETED USING TWO (2) METHODS: Name and Date of confirmed by patient verbally. PATIENT GENDER DATA: Male PATIENT RELEVANT IMPLANT DATA REVIEWED: Yes RADIOLOGY DEPARTMENT: MR; Exam(s) Completed: Body: Prostate PERIPHERAL IV DATA: Not applicable SIGNED BY: Savanna Ojeda July 07, 2019 10:50 AM [facility] MRI PROSTATE WO/W IVCONon MRI PROSTATE WO/W IVCON * * *Final Report* * * DATE OF EXAM: Jul 07 2019 12:03PM [facility] 0751 - MRI PROSTATE WO/W IVCON / PROCEDURE REASON: multiple diagnoses * * * * Physician Interpretation * * * * RESULT: MRI PELVIS WITHOUT AND WITH IV CONTRAST (MULTIPARAMETRIC PROSTATE MRI): ... CLINICAL HISTORY: 64-year-old with prostate cancer Previous biopsy: Positive, Grade Group 3 (GS 4 + 3) (2010) PSA: 3.04 ng/mL (April 2019) Prior therapy: XRT COMPARISON: None TECHNIQUE: Multiparametric MRI of the prostate and pelvis performed on a 3T (Glycobiaa) scanner utilizing phase pelvic coil. Sequences obtained: Multiplanar T2-WI with small [id number]; Axial diffusion weighted images with multiple B-values and creation of ADC-maps; Dynamic contrast enhanced T1-weighted images through the prostate were also obtained before, during and after the administration of intravenous gadolinium. Prostate dimensions and volume were obtained using a semi-automated software (i[employer] Interventional). CONTRAST: IV: 19 cc of (Dotarem). RESULT: Prostate: Dimensions: 4.2 x 3.2 x 3.4 cm corresponding to a volume of approximately 21.8 cc. Peripheral zone: No focal abnormalities with imaging features concerning for prostate cancer. Transition zone: No focal lesions with imaging features suspicious for clinically significant disease. Central zone: The central zone is not well seen. Neurovascular bundle: Unremarkable. Seminal vesicles: Unremarkable. Adjacent Organ Involvement: n/a Lymphadenopathy: No pelvic lymphadenopathy. Bladder: Unremarkable. Pelvic bones: No suspicious pelvic osseous lesions. Other Findings: Colonic diverticulosis. IMPRESSION: NO LESION WITH IMAGING FINDINGS SUSPICIOUS FOR CLINICALLY SIGNIFICANT PROSTATE CANCER. NO LYMPHADENOPATHY. Number of targets created for MR/US fusion biopsy: None Transcribed Using Voice Recognition Transcribe Date/Time: Jul 07 2019 12:12P Dictated by: VINCE ROGERS MD This examination was interpreted and the report reviewed and electronically signed by: VINCE ROGERS MD on Jul 07 2019 12:27PM EST [id number] [facility] NURSING PROGon 07-07-2019 NURSING PROG HNO ID: [id number] Author: Ayah NevarezRn) FARA Vargas Service: Radiology Author Type: Registered Nurse Type: Nursing Progress Note Filed: 07/07/2019 10:31 AM Note Text: Radiology Service Progress Note DATE OF SERVICE: July 07, 2019 TIME: 10:24 AM PATIENT WEIGHT: 204LBS PATIENT IDENTITY VERIFICATION COMPLETED USING TWO (2) METHODS: Name and Date of confirmed by patient verbally and Name and Date of confirmed by identification band. PATIENT GENDER DATA: Male ALLERGIES: Reviewed and unchanged CONTRAST ALLERGY: NO. EXAM: MRI - CONTRAST TYPE: GROUP II IV SITE: Ambulatory: A peripheral IV was started in the Right antecubital site with a Angio cath: 22 gauge. and A Saline lock was inserted per protocol IV SITE APPEARANCE: Clean,Dry and Intact SIGNATURE: Ayah Vargas RN PATIENT NAME: Mahendra Vaughn DATE: July 07, 2019 TIME: 10:24 AM [facility] CT CHEST W IVCONon 9 CT CHEST W IVCON * * *Final Report* * * DATE OF EXAM: Jun 28 2019 10:39AM [facility] 0539 - CT CHEST W IVCON / PROCEDURE REASON: Malignant neoplasm of prostate (HCC) * * * * Physician Interpretation * * * * RESULT: EXAMINATION: CHEST CT WITH CONTRAST CLINICAL HISTORY: Malignant neoplasm of prostate (HCC) Technique: Spiral CT acquisition of the chest from the thoracic inlet to the upper abdomen following IV contrast. MQ: CTCWR_5 Contrast: 50 mL Omnipaque [address] Dose-Length Product: 272 mGy*cm CT Dose Reduction Employed: Automated exposure control (AEC) Comparison: None. RESULT: Limitations: None. Lines, tubes, and devices: None. Lung parenchyma and pleura: No consolidative process or pleural effusion. The trachea and major airways appear patent. Small areas of atelectasis and or scarring are appreciated within the inferior aspects of the lower lobes bilaterally, right greater than left. 3 mm nodule posterior left upper lobe, image 25, series 3 is appreciated. Thoracic inlet, heart, and mediastinum: No substantial mediastinal or hilar adenopathy. No substantial pericardial effusion. The thoracic aorta is normal in caliber. Bones/Soft Tissues: Degenerative changes involving the thoracic spine are noted. Anterior wedge deformities of several mid thoracic vertebral bodies, kyphotic deformity of the thoracic spine is appreciated. No osseous destructive process is identified. Upper Abdomen: Limited images through the upper abdomen appear grossly unremarkable. IMPRESSION: 3 mm left upper lobe nodule. Given the patient's history, correlation with follow-up examinations is suggested to assess for stability. Transcribe Date/Time: Jun 29 2019 8:31A Dictated by: SERENE ZALDIVAR MD This examination was interpreted and the report reviewed and electronically signed by: SERENE ZALDIVAR MD on Jun 29 2019 8:57AM EST Thank you for allowing us to participate in the care of your patient. Should there be any questions regarding this interpretation, please call [phone]. If you are unable to reach us at the number above, please feel free to contact [facility] eRadiology at [phone]. [id number] Normal [facility] Creatinineon 06-28-2019 Creatinine [Mass/Vol] 1.01 mg/dL Normal 0.73-1.22 [facility] Creatinine [Mass/Vol] mg/dL Normal [facility] Comment on above: Result Comment: eGFR (Estimated GFR) Units of measure: mL/min/1.73 meters squared eGFR is derived from the reexpressed MDRD Study equation using the following parameters: serum creatinine, age, gender and race. The creatinine assay has been calibrated to be traceable to IDMS. An eGFR <60 mL/min/1.73m2 for >3 months is consistent with chronic kidney disease. Refer to KDOQI guidelines for clinical interpretation. In patients with unstable renal function, e.g. those with acute kidney injury, the eGFR may not accurately reflect actual GFR. PROGRESSon 06-28-2019 PROGRESS HNO ID: [id number] Author: Niurka Coombs Service: ? Author Type: ? Type: Progress Notes Filed: 06/28/2019 1:10 PM Note Text: Radiology Service Progress Note PATIENT NAME: Mahendra Vaughn DATE OF SERVICE: June 28, 2019 TIME: 9:31 AM PATIENT IDENTITY VERIFICATION COMPLETED USING TWO (2) METHODS: Patient confirmed name verbally and ID band matches.. PATIENT GENDER DATA: Male PATIENT RELEVANT IMPLANT DATA REVIEWED: Not Applicable RADIOLOGY DEPARTMENT: CT; Exam(s) Completed: Chest PERIPHERAL IV DATA: Site assessment: Clean,Dry and Intact, Site disposition Discontinued SIGNED BY: Niurka Coombs June 28, 2019 9:31 AM Normal [facility] CNOVSPon 06-23-2019 CNOVSP Visit (SP) Office (H EMAS[facility]) -- MAHENDRA VAUGHN ([id number]) 1955 [facility] Date Time Provider Department 06/23/19 2:45 PM VEE CASTRO) RYAN During your visit today, we recorded the following information about you: Temperature Pulse Respiration Blood pressure 98.1 degrees 78/minute 16/minute 157/69 Weight Height 94.5 kg 1.738 m Vee Castro MD 06/28/2019 2:19 PM Signed PATIENT NAME: Mahendra Vaughn CLINIC NO.: [id number] ATTENDING PHYSICIAN: Vee Castro MD DATE OF SERVICE: June 27, 2019 This document has been created with the use of voice recognition technology. It may contain inaccuracies, misspellings, inaccurate syntax or inappropriate word context that. Dear Dr. Brennan Pagan JR, MD, thank you for referring Mr. Mahendra Vaughn for an opinion regarding management of PSA recurrent prostate cancer. CHIEF COMPLAINT: I have my PSA return HPI: Mahendra Vaughn is a 64 year old year old male with PMH of BPH and HTN, with T1c,N0,M0 norma 7 (4+3) Prostate adenocarcinoma s/p EBRT 2010 noted to have increasing PSA. His PSA based on records post XRT never became undetectable as below: 09/2012: 1.16 11/2012: .53 05/2013: 0.73 11/2013: 0.58 06/2014: 0.77 07/2015 0.68 07/2016: 0.56 07/2017: 0.86 03/2018: 1.030 04/2019: 3.040 Denies any new complaints. He had recent CT and Bone scan 05/17/2019 which did not demonstrate any evidence of metastatic disease. Patient was started on Casodex by Dr. Pagan at [facility] and planning to start Lupron in their office as well. He does have nocturia but denies any other symptoms at this time. Current Outpatient Medications: bicalutamide (CASODEX) 50 mg tablet Take 50 mg by mouth once daily. omeprazole (PRILOSEC) 20 mg capsule Take 20 mg by mouth once daily. lisinopril-hydrochlorothia zide (PRINZIDE, ZESTORETIC) 20-25 mg per tablet Take 1 tablet by mouth once daily. CETIRIZINE HCL (CETIRIZINE ORAL) Take 10 mg by mouth once daily. No current facility-administered medications for this visit. ALLERGIES Allergen Reactions - Bactrim [Sulfametho* Rash PAST MEDICAL HISTORY Diagnosis Date - Hypertension - Prostate cancer (HCC) 05/10/2014 - Prostate cancer (HCC) PAST SURGICAL HISTORY Procedure Laterality Date - HERNIA REPAIR HX 03/01/2014 - TONSILLECTOMY HX - VASECTOMY FAMILY HISTORY Problem Relation Age of Onset - Prostate Cancer Father - Prostate Cancer Brother Social History Socioeconomic History Marital status: Spouse name: Not on file Number of children: Not on file Years of education: Not on file Highest education level: Not on file Occupational History Not on file Social Needs Financial resource strain: Not on file Food insecurity: Worry: Not on file Inability: Not on file Transportation needs: Medical: Not on file Non-medical: Not on file Tobacco Use Smoking status: Never Smoker Smokeless tobacco: Never Used Substance and Sexual Activity Alcohol use: No Drug use: Not on file Sexual activity: Not on file Lifestyle Physical activity: Days per week: Not on file Minutes per session: Not on file Stress: Not on file Relationships Social connections: Talks on phone: Not on file Gets together: Not on file Attends christian service: Not on file Active member of club or organization: Not on file Attends meetings of clubs or organizations: Not on file Relationship status: Not on file Intimate partner violence: Fear of current or ex partner: Not on file Emotionally abused: Not on file Physically abused: Not on file Forced sexual activity: Not on file Other Topics Concerns: Not on file Social History Narrative Not on file REVIEW OF SYSTEMS GENERAL: No weight loss, malaise or fevers. No night sweats. HEENT: Negative for headaches, No changes in hearing or vision, no nose bleeds or other nasal problems. RESPIRATORY: Negative for cough, wheezing and shortness of breath CARDIOVASCULAR: Negative for chest pain, leg swelling and palpitations GI: Negative for abdominal discomfort, blood in stools or black stools and change in bowel habits : Negative for dysuria, frequency and incontinence MUSCULOSKELETAL: Negative for joint pain or swelling, back pain, and muscle pain. SKIN: Negative for lesions, rash, and itching. HEMATOLOGY/LYMPHOLOGY Negative for prolonged bleeding, bruising easily, and swollen nodes. NEURO: Negative for numbness or tingling of hands/feet. No weakness. PHYSICAL EXAMINATION: BP 157/69 Pulse 78 Temp 36.7 ?C (98.1 ?F) (Oral) Resp 16 Ht 173.8 cm (5' 8.41 ) Wt 94.5 kg (208 lb 6.4 oz) SpO2 98% BMI 31.31 kg/m? Wt 94.5 kg (208 lb 6.4 oz) BMI 31.31 kg/m2 Last 3 Encounter Wt Readings: Date: Wt: 06/23/2019 94.5 kg (208 lb 6.4 oz) 11/12/2018 98.2 kg (216 lb 9.6 oz) 04/30/2018 95.7 kg (211 lb) General appearance:ECOG PERFORMANCE STATUS: 0- Fully active, able to carry on all pre-disease performance w/o restriction. Patient in NAD. Skin: Skin color, texture, turgor normal. No rashes or lesions. Eyes: Anicteric sclera. Pupils are equally round and reactive to light. Extraocular movements are intact. . Lymph Nodes: No cervical, supraclavicular, axillary or inguinal adenopathy. Oropharynx: Lips, mucosa, and tongue normal. Back: No pain to percussion. Negative SLR test Lungs clear to auscultation, No wheezing or rhonchi Heart: RRR without murmur, gallop, or rubs. Abdomen soft, non-tender. No masses, organomegaly Extremities: No deformities. No edema Neuro: Gait and speech normal. Reflexes normal and symmetric. Muscular strength intact. Sensation grossly intact. Rectal: Deferred : Deferred LABS: No results found for: GLUC, K, NA, CHLOR, CO2, CREAT, BUN, ANION, CA, TPROT, ALB, TBILI, ALKPHOS, AST, ALT No results found for: WBC, RBC, HB, HCT, MCV, MCH, MCHC, RDWCV, PLT, MPV, MPV, NEUT, ABSNEUT, LYMPHP, ABSLYMPH, MONOP, ABSMONO, EOSINP, ABSEOSIN, BASOP, ABSBASO PATH: As per HPI IMAGING: As Per HPI CT abdomen and pelvis 05/17/2019 ASSESSMENT AND PLAN: Mahendra Vaughn is a 64 year old year old male with rising PSA post EBRT which was completed 2010. He never had achieved an undetectable PSA and his PSA DT appears to be greater than 6 months. His metatstic work up was negative. Patient with no other medical comorbidities at this time. Will schedule for a CT of the chest as well as MRI of the prostate. Discuss additional local options vs hormonal therapy with LHRH agonist and discuss the addition of the novel anti-androgens although their benefits appear more in patients with metatstic disease and shorter PSA DT. Will follow up with the patient in [address] Brennan Pagan JR, MD, thank you for allowing me to participate in Mr. Mahendra Vaughn care, if there are any questions or concerns please do not hesitate to contact me at the number below. Vee Castro M.D. Hematology/Medical Oncology [facility] [phone] CC: MD Chilo Jameson II, MD - (Inactive), In Basket (Inactive) [address] [phone] (Ph) Referring Provider: BRENNAN PAGAN JR [[id number]] Allergies As of Date: 06/23/2019 Noted Allergy Reaction BACTRIM (SULFAMETHOXAZOLE-TRIMETH* 07/18/2016 2 - Rash Date Reviewed: 06/23/2019 Reviewed by: Rosita Pandya - Fully Assessed Reason for Visit: Consult [173] Cmt: Prostate cancer Primary Visit Diagnosis:Malignant neoplasm of prostate (HCC) [C61] Other Visit Diagnosis:Elevated PSA, less than 10 ng/ml [R97.20] Order(s):CT CHEST W IVCON [5802199] Order #: [id number] FUTURE [] iv contrast (will be provided with radiology test)CT Chest W -Inject, intravenously, once for 1 dose.No IV access, insert saline lock prior to the beginning of sedation, infusion, injection of imaging exam. Discontinue saline lock post exam. If Pt. has a central line or IVAD, may access for administration according to line specific nursing protocol. Once exam is complete flush line and de-access according to line specific nursing protocol in the CT contrast administration guidelines link.Disp: 1 EachRfl: 0 MRI PROSTATE WO/W IVCON [[id number]] Order #: [id number] FUTURE [] iv contrast (will be provided with radiology test)MRI Prostate Inject, intravenously, once for 1 dose. No IV access, insert saline lock prior to the beginning of sedation, infusion, injection of imaging exam. Discontinue saline lock post exam. If Pt. has a central line or IVAD, may access for administration according to line specific nursing protocol. Once exam is complete flush line and de-access according to line specific nursing protocol in the MR contrast administration guidelines link.Disp: 1 EachRfl: 0 CONSULT TO UROLOGY [9041] Order #: [id number]: 1 FUTURE CBC + DIFF (FOR REMOTE [facility] USE) [SQRCBCDF] Order #: [id number] FUTURE COMP METABOLIC PANEL [SQCMP] Order #: [id number] FUTURE PSA/PROSTSPECAG DIAG [SQPSA] Order #: [id number] FUTURE CREATININE BLD [SQCRET] Order #: [id number] FUTURE CONSULT TO MEDICAL GENETICS - CANCER [3989633] Order #: [id number]: 1 Disposition: Return in about 6 weeks (around 08/04/2019) for Follow up, Labs. Follow-up and Disposition History Recorded Prescriptions as of 06/23/2019 Sig: BICALUTAMIDE 50 MG TABLET Take 50 mg by mouth once jose* OMEPRAZOLE 20 MG CAPSULE,CHASTITY* Take 20 mg by mouth once jose* LISINOPRIL 20 MG-HYDROCHLOROT* Take 1 tablet by mouth once d* CETIRIZINE ORAL Take 10 mg by mouth once jose* IV CONTRAST (RADIOLOGY PROCED* CT Chest W -Inject, intraveno* IV CONTRAST (RADIOLOGY PROCED* MRI Prostate Inject, intraven* Problem List As Of Date 06/23/2019 Noted Resolved Prostate cancer (HCC) [C61] INVALID FOR* History of prostate cancer [Z85.46] INVALID FOR* Encounter Status:Closed by VEE CASTRO MD on 06/28/19 Normal [facility] PROGRESSon 06-23-2019 PROGRESS HNO ID: [id number] Author: Vee San) Gloria Service: ? Author Type: Physician Type: Progress Notes Filed: 06/28/2019 2:19 PM Note Text: PATIENT NAME: Mahendra Vaughn CLINIC NO.: [id number] ATTENDING PHYSICIAN: Vee Castro MD DATE OF SERVICE: June 27, 2019 This document has been created with the use of voice recognition technology. It may contain inaccuracies, misspellings, inaccurate syntax or inappropriate word context that. Dear Dr. Brennan Pagan JR, MD, thank you for referring Mr. Mahendra Vaughn for an opinion regarding management of PSA recurrent prostate cancer. CHIEF COMPLAINT: I have my PSA return HPI: Mahendra Vaughn is a 64 year old year old male with PMH of BPH and HTN, with T1c,N0,M0 norma 7 (4+3) Prostate adenocarcinoma s/p EBRT 2010 noted to have increasing PSA. His PSA based on records post XRT never became undetectable as below: 09/2012: 1.16 11/2012: .53 05/2013: 0.73 11/2013: 0.58 06/2014: 0.77 07/2015 0.68 07/2016: 0.56 07/2017: 0.86 03/2018: 1.030 04/2019: 3.040 Denies any new complaints. He had recent CT and Bone scan 05/17/2019 which did not demonstrate any evidence of metastatic disease. Patient was started on Casodex by Dr. Pagan at [facility] and planning to start Lupron in their office as well. He does have nocturia but denies any other symptoms at this time. Current Outpatient Medications: bicalutamide (CASODEX) 50 mg tablet Take 50 mg by mouth once daily. omeprazole (PRILOSEC) 20 mg capsule Take 20 mg by mouth once daily. lisinopril-hydrochlorothia zide (PRINZIDE, ZESTORETIC) 20-25 mg per tablet Take 1 tablet by mouth once daily. CETIRIZINE HCL (CETIRIZINE ORAL) Take 10 mg by mouth once daily. No current facility-administered medications for this visit. ALLERGIES Allergen Reactions - Bactrim [Sulfametho* Rash PAST MEDICAL HISTORY Diagnosis Date - Hypertension - Prostate cancer (HCC) 05/10/2014 - Prostate cancer (HCC) PAST SURGICAL HISTORY Procedure Laterality Date - HERNIA REPAIR HX 03/01/2014 - TONSILLECTOMY HX - VASECTOMY FAMILY HISTORY Problem Relation Age of Onset - Prostate Cancer Father - Prostate Cancer Brother Social History Socioeconomic History Marital status: Spouse name: Not on file Number of children: Not on file Years of education: Not on file Highest education level: Not on file Occupational History Not on file Social Needs Financial resource strain: Not on file Food insecurity: Worry: Not on file Inability: Not on file Transportation needs: Medical: Not on file Non-medical: Not on file Tobacco Use Smoking status: Never Smoker Smokeless tobacco: Never Used Substance and Sexual Activity Alcohol use: No Drug use: Not on file Sexual activity: Not on file Lifestyle Physical activity: Days per week: Not on file Minutes per session: Not on file Stress: Not on file Relationships Social connections: Talks on phone: Not on file Gets together: Not on file Attends christian service: Not on file Active member of club or organization: Not on file Attends meetings of clubs or organizations: Not on file Relationship status: Not on file Intimate partner violence: Fear of current or ex partner: Not on file Emotionally abused: Not on file Physically abused: Not on file Forced sexual activity: Not on file Other Topics Concerns: Not on file Social History Narrative Not on file REVIEW OF SYSTEMS GENERAL: No weight loss, malaise or fevers. No night sweats. HEENT: Negative for headaches, No changes in hearing or vision, no nose bleeds or other nasal problems. RESPIRATORY: Negative for cough, wheezing and shortness of breath CARDIOVASCULAR: Negative for chest pain, leg swelling and palpitations GI: Negative for abdominal discomfort, blood in stools or black stools and change in bowel habits : Negative for dysuria, frequency and incontinence MUSCULOSKELETAL: Negative for joint pain or swelling, back pain, and muscle pain. SKIN: Negative for lesions, rash, and itching. HEMATOLOGY/LYMPHOLOGY Negative for prolonged bleeding, bruising easily, and swollen nodes. NEURO: Negative for numbness or tingling of hands/feet. No weakness. PHYSICAL EXAMINATION: BP 157/69 Pulse 78 Temp 36.7 ?C (98.1 ?F) (Oral) Resp 16 Ht 173.8 cm (5' 8.41 ) Wt 94.5 kg (208 lb 6.4 oz) SpO2 98% BMI 31.31 kg/m? Wt 94.5 kg (208 lb 6.4 oz) BMI 31.31 kg/m2 Last 3 Encounter Wt Readings: Date: Wt: 06/23/2019 94.5 kg (208 lb 6.4 oz) 11/12/2018 98.2 kg (216 lb 9.6 oz) 04/30/2018 95.7 kg (211 lb) General appearance:ECOG PERFORMANCE STATUS: 0- Fully active, able to carry on all pre-disease performance w/o restriction. Patient in NAD. Skin: Skin color, texture, turgor normal. No rashes or lesions. Eyes: Anicteric sclera. Pupils are equally round and reactive to light. Extraocular movements are intact. . Lymph Nodes: No cervical, supraclavicular, axillary or inguinal adenopathy. Oropharynx: Lips, mucosa, and tongue normal. Back: No pain to percussion. Negative SLR test Lungs clear to auscultation, No wheezing or rhonchi Heart: RRR without murmur, gallop, or rubs. Abdomen soft, non-tender. No masses, organomegaly Extremities: No deformities. No edema Neuro: Gait and speech normal. Reflexes normal and symmetric. Muscular strength intact. Sensation grossly intact. Rectal: Deferred : Deferred LABS: No results found for: GLUC, K, NA, CHLOR, CO2, CREAT, BUN, ANION, CA, TPROT, ALB, TBILI, ALKPHOS, AST, ALT No results found for: WBC, RBC, HB, HCT, MCV, MCH, MCHC, RDWCV, PLT, MPV, MPV, NEUT, ABSNEUT, LYMPHP, ABSLYMPH, MONOP, ABSMONO, EOSINP, ABSEOSIN, BASOP, ABSBASO PATH: As per HPI IMAGING: As Per HPI CT abdomen and pelvis 05/17/2019 ASSESSMENT AND PLAN: Mahendra Vaughn is a 64 year old year old male with rising PSA post EBRT which was completed 2010. He never had achieved an undetectable PSA and his PSA DT appears to be greater than 6 months. His metatstic work up was negative. Patient with no other medical comorbidities at this time. Will schedule for a CT of the chest as well as MRI of the prostate. Discuss additional local options vs hormonal therapy with LHRH agonist and discuss the addition of the novel anti-androgens although their benefits appear more in patients with metatstic disease and shorter PSA DT. Will follow up with the patient in [address] Brennan Pagan JR, MD, thank you for allowing me to participate in Mr. Mahendra Vaughn care, if there are any questions or concerns please do not hesitate to contact me at the number below. Vee Castro M.D. Hematology/Medical Oncology [place] [phone] CC: MD Chilo Jameson II, MD - (Inactive), In Basket (Inactive) [address] [facility] [address] [phone] (Ph) Normal [facility] CT-CT abdomen pelvis w con I MPORTon 05-17-2019 CT-CT abdomen pelvis w con IMPORT Images were obtained outside of [facility] [id number] Normal [facility] NM-NM bone scan whole body I MPORTon 05-17-2019 NM-NM bone scan whole body IMPORT Images were obtained outside of [facility] [id number] Normal [facility] CNOVon 11-12-2018 CNOV Office Visit (RADTSA ) -- MAHENDRA VAUGHN ([id number]) 1955 M [facility] Date Time Provider Department 11/12/18 8:00 AM LUDY STACK During your visit today, we recorded the following information about you: Temperature Pulse Respiration Blood pressure 98.2 degrees 74/minute 16/minute 129/69 Weight 98.2 kg February11/12/2018 8:27 AM Signed AUA=3 Ludy Stakc MD 11/12/2018 10:43 AM Signed Radiation Oncology - Follow Up Note PATIENT NAME: Mahendra Vaughn PATIENT DIAGNOSIS: ?Stage II ([id number]) adenocarcinoma of the prostate, Norma score 7 (4+3); status post external beam radiation therapy. ? INTERVAL HISTORY: Mr. Vaughn is doing very well. ?His appetite is good and he?is maintaining his weight. ?He denies diarrhea or dysuria. He still complains of pain in the left testicle at times. He had ultrasound of the scrotum on 05/08/2018 which was unremarkable. ALLERGIES Allergen Reactions - Bactrim [Sulfametho* Rash MEDICATIONS: omeprazole (PRILOSEC) 20 mg capsule Take 20 mg by mouth once daily. lisinopril-hydrochlorothia zide (PRINZIDE, ZESTORETIC) 20-25 mg per tablet Take 1 tablet by mouth once daily. CETIRIZINE HCL (CETIRIZINE ORAL) Take 10 mg by mouth once daily. PHYSICAL EXAM: VS: BP 129/69 Pulse 74 Temp 36.8 ?C (98.2 ?F) (Oral) Resp 16 Wt 98.2 kg (216 lb 9.6 oz) SpO2 99% KPS: 90 General Appearance: Alert and oriented. No acute distress. HEENT: NCAT. Sclera anicteric. PERRL. EOMI. Neck: Normal ROM. No palpable cervical or supraclavicular adenopathy. Chest: No respiratory distress. Lungs clear to auscultation bilaterally. Heart: Regular rate and rhythm. Abdomen: Soft. Nontender. Nondistended.??On rectal examination, the prostate is flat and smooth. The testicles feel normal. Musculoskeletal: No edema. Normal ROM in extremities. No bone or spine tenderness. Neuro: Strength intact and symmetric. Sensation intact. CN II-XII intact. Gait normal. No focal deficits. Skin: No rashes noted Lymphatics: No palpable lymphadenopathy. ? ASSESSMENT AND PLAN: His PSA from 10/12/2018 was 1.52. It is going up slowly. Dr. Pagan is going to repeat it in 6 months' time. No follow-up appointment was given in this department as he is being actively followed by Dr. Brennan Pagan. ? Signed by: Ludy Stack M.D., FACRO ? cc: Chilo Rodriguez II, MD [address] [place] [id number] ? Dr. Brennan Pagan ? This note was dictated with Twilaon Naturally Speaking and may contain some grammatical errors due to limitations of the software. Referring Provider: CHILO RODRIGUEZ II [[id number]] Allergies As of Date: 11/12/2018 Noted Allergy Reaction BACTRIM (SULFAMETHOXAZOLE-TRIMETH* 07/18/2016 2 - Rash Date Reviewed: 11/12/2018 Reviewed by: Maxine Pagan - Fully Assessed Reason for Visit: Prostate Cancer [590] Cmt: follow up Primary Visit Diagnosis:Prostate cancer (HCC) [C61] Prescriptions as of 11/12/2018 Sig: OMEPRAZOLE 20 MG CAPSULE,CHASTITY* Take 20 mg by mouth once jose* LISINOPRIL 20 MG-HYDROCHLOROT* Take 1 tablet by mouth once d* CETIRIZINE ORAL Take 10 mg by mouth once jose* Problem List As Of Date 11/12/2018 Noted Resolved Prostate cancer (HCC) [C61] INVALID FOR* History of prostate cancer [Z85.46] INVALID FOR* Visit Notes: >> Maxine Pagan [facility] Nov 12, 2018 8:22 AM Status: Signed AUA=3 Disposition: Return if symptoms worsen or fail to improve. Follow-up and Disposition History Recorded Encounter Status:Closed by LUDY STACK MD on 11/12/18 [facility] PROGRESSon 11-12-2018 PROGRESS HNO ID: [id number] Author: Ludy Stack Service: (none) Author Type: Physician Type: Progress Notes Filed: 11/12/2018 10:43 AM Note Text: Radiation Oncology - Follow Up Note PATIENT NAME: Mahendra Vaughn PATIENT DIAGNOSIS: ?Stage II (O6fO8O3) adenocarcinoma of the prostate, Norma score 7 (4+3); status post external beam radiation therapy. ? INTERVAL HISTORY: Mr. Vaughn is doing very well. ?His appetite is good and he?is maintaining his weight. ?He denies diarrhea or dysuria. He still complains of pain in the left testicle at times. He had ultrasound of the scrotum on 05/08/2018 which was unremarkable. ALLERGIES Allergen Reactions - Bactrim [Sulfametho* Rash MEDICATIONS: omeprazole (PRILOSEC) 20 mg capsule Take 20 mg by mouth once daily. lisinopril-hydrochlorothia zide (PRINZIDE, ZESTORETIC) 20-25 mg per tablet Take 1 tablet by mouth once daily. CETIRIZINE HCL (CETIRIZINE ORAL) Take 10 mg by mouth once daily. PHYSICAL EXAM: VS: BP 129/69 Pulse 74 Temp 36.8 ?C (98.2 ?F) (Oral) Resp 16 Wt 98.2 kg (216 lb 9.6 oz) SpO2 99% KPS: 90 General Appearance: Alert and oriented. No acute distress. HEENT: NCAT. Sclera anicteric. PERRL. EOMI. Neck: Normal ROM. No palpable cervical or supraclavicular adenopathy. Chest: No respiratory distress. Lungs clear to auscultation bilaterally. Heart: Regular rate and rhythm. Abdomen: Soft. Nontender. Nondistended.??On rectal examination, the prostate is flat and smooth. The testicles feel normal. Musculoskeletal: No edema. Normal ROM in extremities. No bone or spine tenderness. Neuro: Strength intact and symmetric. Sensation intact. CN II-XII intact. Gait normal. No focal deficits. Skin: No rashes noted Lymphatics: No palpable lymphadenopathy. ? ASSESSMENT AND PLAN: His PSA from 10/12/2018 was 1.52. It is going up slowly. Dr. Pagan is going to repeat it in 6 months' time. No follow-up appointment was given in this department as he is being actively followed by Dr. Brennan Pagan. ? Signed by: Ludy Stack M.D., FACRO ? cc: Chilo Rodriguez II, MD [address] [facility] [address] [place] [address] ? Dr. Brennan Pagan ? This note was dictated with Lisandro Naturally Speaking and may contain some grammatical errors due to limitations of the software. Normal [facility] Vital Signs Date Time Vital Sign Value Performing Clinician Facility 09-07-2024 09:00-0400 Body height 172.7 cm Kathy BENTON Work Phone: [facility] 09-07-2024 09:00-0400 Body mass index (BMI) [Ratio] 29.13 kg/m2 Kathy Hemmer PA Work Phone: [facility] 09-07-2024 09:00-0400 Body weight 86.91 kg Kathy Hemmer PA Work Phone: [facility] 09-07-2024 09:00-0400 Diastolic blood pressure 68 mm[Hg] Kathy Hemmer PA Work Phone: [facility] 09-07-2024 09:00-0400 Heart rate 69 /min Kathy Hemmer PA Work Phone: [facility] 09-07-2024 09:00-0400 Respiratory rate 16 /min Kathy Hemmer PA Work Phone: [facility] 09-07-2024 09:00-0400 SaO2% (BldA) [Mass fraction] 96 % Kathy Hemmer PA Work Phone: [facility] 09-07-2024 09:00-0400 Systolic blood pressure 122 mm[Hg] Kathy Hemmer PA Work Phone: [facility] 08-26-2024 17:52-0400 Diastolic blood pressure 73 mm[Hg] II Chilo Rodriguez Work Phone: [facility] 08-26-2024 17:52-0400 Heart rate 68 /min II Chilo Rodriguez Work Phone: [facility] 08-26-2024 17:52-0400 Respiratory rate 18 /min II Chilo Rodriguez Work Phone: [facility] 08-26-2024 17:52-0400 SaO2% (BldA) [Mass fraction] 100 % II Chilo Rodriguez Work Phone: [facility] 08-26-2024 17:52-0400 Systolic blood pressure 127 mm[Hg] II Chilo Rodriguez Work Phone: [facility] 08-26-2024 15:40-0400 Body height 172.72 cm II Chilo Rodriguez Work Phone: [facility] 08-26-2024 15:40-0400 Body temperature 97.7 [degF] II Chilo Rodriguez Work Phone: [facility] 08-26-2024 15:40-0400 Body weight 86.4 kg II Chilo Rodriguez Work Phone: [facility] 08-23-2024 08:36-0400 Body height 172.7 cm Chilo Rodriguez MD Work Phone: [facility] 08-23-2024 08:36-0400 Body mass index (BMI) [Ratio] 28.89 kg/m2 Chilo Rodriguez MD Work Phone: [facility] 08-23-2024 08:36-0400 Body weight 86.18 kg Chilo Rodriguez MD Work Phone: [facility] 08-23-2024 08:36-0400 Diastolic blood pressure 70 mm[Hg] Chilo Rodriguez MD Work Phone: [facility] 08-23-2024 08:36-0400 Heart rate 75 /min Chilo Rodriguez MD Work Phone: [facility] 08-23-2024 08:36-0400 SaO2% (BldA) [Mass fraction] 98 % Chilo Rodriguez MD Work Phone: [facility] 08-23-2024 08:36-0400 Systolic blood pressure 134 mm[Hg] Chilo Rodriguez MD Work Phone: [facility] 09-01-2021 12:45-0400 Body height 172.72 cm Chelo Ginty Other [facility] Other 09-01-2021 12:45-0400 Body mass index (BMI) [Ratio] 31.17 kg/m2 Chelo Ginty Other [facility] Other 09-01-2021 12:45-0400 Body temperature 97.7 [degF] Chelo Ginty Other [facility] Other 09-01-2021 12:45-0400 Body weight 92.99 kg Chelo Freitas Other [facility] Other 09-01-2021 12:45-0400 SaO2% (BldA) [Mass fraction] 97 % Chelo Freitas Other [facility] Other Encounters Encounter Date Encounter Type Care Provider Facility Start: 09-27-2024 End: 09-27-2024 Bamgene Ozuna MD Work Phone: [facility] Start: 09-27-2024 End: 09-27-2024 Bamgene Ozuna MD Work Phone: [facility] Start: 09-27-2024 End: 09-27-2024 Office outpatient new 30 minutes Vida Ozuna MD Work Phone: [facility] Comment on above: Seborrheic keratosis (Primary Dx); Common wart; Other specified erythematous conditions; Digital mucous cyst; Neoplasm of unspecified behavior of bone, soft tissue, and skin; Actinic keratosis Start: 09-27-2024 End: 09-27-2024 ambulatory VIDA OZUNA Not Available Start: 09-07-2024 End: 09-07-2024 Bamboo flowsheet Kathy BENTON Work Phone: [facility] Start: 09-07-2024 End: 09-07-2024 Bamboo flowsheet Kathy BENTON Work Phone: [facility] Start: 09-07-2024 End: 09-07-2024 Office outpatient visit 25 minutes Kathy BENTON Work Phone: [facility] Comment on above: Atypical chest pain (Primary Dx); Benign essential hypertension (CMS/HCC); PVC (premature ventricular contraction) Start: 09-07-2024 End: 09-07-2024 ambulatory KATHY SAHA Not Available Start: 08-26-2024 End: 08-26-2024 Emergency department patient visit II Chilo Rodriguez Work Phone: [facility] Work Phone: Start: 08-23-2024 End: 08-23-2024 Bamboo flowsheet Chilo Rodriguez MD Work Phone: [facility] Start: 08-23-2024 End: 08-23-2024 Bamboo flowsheet Chilo Rodriguez MD Work Phone: [facility] Start: 08-23-2024 End: 08-23-2024 ambulatory CHILO RODRIGUEZ Not Available Start: 08-23-2024 End: 08-23-2024 Office outpatient visit 25 minutes Chilo Rodriguez MD Work Phone: [facility] Comment on above: Benign essential hyp ertension (CMS/HCC) (Primary Dx); Mixed hyperlipidemia (CMS/HCC); Flu vaccine need; Malignant neoplasm of prostate (CMS/HCC); Verrucous skin lesion; PVC's (premature ventricular contractions) Start: 02-19-2024 End: 02-19-2024 ambulatory KATHY SAHA Not Available Start: 10-23-2022 End: 10-24-[address] DOCTOR GOLDMAN Facility:[facility] Start: 05-31-2022 End: 06-01-[address] CHILO RODRIGUEZ Facility:[facility] Start: 11-30-2021 End: 02-28-2022 Recurring CHILO RODRIGUEZ [facility] Start: 09-01-2021 End: 09-01-2021 ambulatory Chelo Ginty Other [facility] Other Start: 09-01-2021 Office outpatient vi sit 15 minutes Chelo Ginty [facility] Procedures Date Procedure Procedure Detail Performing Clinician Start: 09-27-2024 SKIN / NAIL BIOPSY Rosas Ozuna MD Work Phone: Start: 09-27-2024 End: 09-27-2024 CRYOTHERAPY SKIN LESION Vida Ozuna MD Work Phone: Start: 09-27-2024 Level i surg patholo gy gross examination only Vida Ozuna MD Work Phone: Start: 08-26-2024 Plain chest X-ray II Da lenny Rodriguez Work Phone: Start: 06-27-2020 Colonoscopy Chilo valentino MD Work Phone: Start: 05-10-2011 foot surgery CHILO VALENTINO Start: 02-08-2011 radiation treatments DA LENNY RODRIGUEZ Start: 10-12-2010 Transrectal biopsy o f prostate using ultrasound guidance CHILO WHIT Repair of umbilical hernia Sharmaine RODRIGUEZ Plan of Treatment Date Care Activity Detail Author Start: 06-27-2030 Screening for malign ant neoplasm of colon [facility] Start: 02-18-2025 Medicare Annual Wellness (AWV) Medicare Annual Wellness (AWV) [facility] Start: 12-15-2024 End: 12-15-2024 Patient encounter procedure 12/15/2024 9:00 AM EST Office Visit [facility] [address] [place] [address] Vida Ozuna MD [address] [place], [place] [id number] [facility] Start: 09-27-2024 End: 09-27-2024 Patient encounter procedure 09/27/2024 9:20 AM EST Office Visit [facility] [address] [place] [address] Vida Ozuna MD [address] [place], [place] [id number] [facility] Start: 09-07-2024 End: 09-07-2024 Patient encounter procedure 09/07/2024 9:00 AM EDT Office Visit [facility] [address] [facility] [address] [place] [address] Kathy Saha PA [address] [facility] [address] [place] [address] Arrived [facility] Comment on above: Arrived Start: 07-11-2024 Influenza vaccination Influenza Vacc ine (#1) [facility] Start: 05-18-2023 Screening for malign ant neoplasm of colon FIT-DNA [facility] Start: 1955 Screening for malign ant neoplasm of colon [facility] Patient Education Chest Pain, Adult ED [facility] Work Phone: Patient referral [facility] Work Phone: Immunizations Immunization Date Immunization Notes Care Provider Fa [facility] 08-23-2024 Influenza, High-dose Seasonal, Quadrivalent, Preservative Free Chilo Rodriguez MD Work Phone: [facility] 07-26-2024 SARS-COV-2 (COVID-19 ) vaccine, mRNA, spike protein, LNP, PF, 50 mcg/0.5 mL Kathy BENTON Work Phone: [facility] 08-30-2022 influenza, high dose seasonal, preservative-free Chilo Rodriguez MD Work Phone: [facility] 08-30-2022 influenza virus vacc ine, unspecified formulation Chilo Rodriguez MD Work Phone: [facility] 08-12-2022 Moderna SARS-CoV-2 B ooster Vaccination Chilo Rodriguez MD Work Phone: [facility] 05-27-2022 pneumococcal polysaccharide vaccine, 23 valent Chilo Rodriguez MD Work Phone: [facility] 08-18-2021 influenza, high dose seasonal, preservative-free Chilo Rodriguez MD Work Phone: [facility] 06-27-2021 pneumococcal conjuga te vaccine, 13 valent Chilo Rodriguez MD Work Phone: [facility] 02-19-2021 zoster vaccine recombinant D kingsley Rodriguez MD Work Phone: [facility] 09-13-2020 zoster vaccine recombinant Sharmaine Rodriguez MD Work Phone: [facility] 08-07-2020 Influenza, High-dose Seasonal, Quadrivalent, Preservative Free Chilo Rodriguez MD Work Phone: [facility] 09-10-2019 Influenza, High-dose Seasonal, Quadrivalent, Preservative Free Chilo Rodriguez MD Work Phone: [facility] Healthcare Payers Date Payer Category Payer Self-pay [id number] 2022 [employer] [facility] [id number] 2019 Medicare MEDICARE [id number] 1959 Medicare [id number] 1959 Unknown [id number] 1954 Unknown [id number] 1954 Unknown [id number] 1954 Unknown [id number] [id number] 1954 Unknown [id number] [id number] 1954 Unknown [id number] [id number] 1954 Unknown [id number] [id number] Unknown [id number] Unknown [id number] Unknown [id number] Social History Date Type Detail Facility Start: 06-15-2019 End: 02-19-2024 Tobacco smoking status Never smoked tobacco (finding) [facility] Other Start: 02-19-2024 End: 09-27-2024 Sex Assigned At Male [facility] Other Start: 02-19-2024 Tobacco use and exposure Smokeless tobacco non-user [facility] Start: 02-19-2024 End: 09-27-2024 Alcoholic beverage intake Lifetime non-drinker (finding) [facility] Start: 02-19-2024 End: 09-27-2024 History of Social function [facility] Start: 07-01-2023 Alcohol Comment Caffeine intak e: 3-4 cups per day coffee [facility] Start: 1955 Sex assigned at Not on file [facility] Start: 1955 Sex Assigned At Male F [facility] Clinical Notes 09-01-2021 to 09-27-2024 Vida Ozuna MD - 09/27/2024 9:20 AM SERENITY Sanchez - 09/07/2024 9:00 AM IDRISTChilo Rodriguez MD - 08/23/2024 8:30 AM EDT Note Date & Type Note Facility 09-27-2024 History of Presen t illness Narrative Images from the original note were not included. Lesions: Location: abdomen Duration: 2 months Quality: denies pain, denies itch Associated symptoms: enlarged Treatments: none Location # 2: left 3rd finger Duration: 1 year Quality: painful Associated symptoms: enlarged, drains pus when patient puts needle in it Treatments: none Location #3: left postauricular scalp Duration: months Quality: denies pain, denies itch Associated symptoms: rough Treatments: none New patient, referred by Cary Brantley NP All pertinent medical history, medications, and allergies were reviewed. General Exam: alert, oriented to person, place, and time, normal affect, well appearing Accompanied by spouse A focused exam completed based on patient reported problems, see below: 1. Seborrheic keratosis Left Postauricular Area Stuck on verrucous, friedman-brown papules and plaques. Patient was counseled regarding these benign growths. Removal is normally not necessary, but they may be removed if they are symptomatic or for cosmetic reasons. 2. Common wart Right Abdomen (side) - Upper Erythematous verrucous papule(s). Patient and/or family member was counseled regarding warts. Treatment options were discussed including cryotherapy, leigh antigen injections, and topical Cantharidin. It was explained that it typically requires multiple treatments before the wart(s) completely resolve. The importance of following up every 3-4 weeks was emphasized. Encouraged OTC wart removers in between appointments to hasten resolution. Patient elected for cryotherapy today, see procedure note. Diagnosis: Verruca Indication: Inflamed Consent: Verbal consent was obtained and risks were discussed, including, but not limited to risks of scarring, darker or panama hat smearer pigmentary changes, recurrence, incomplete removal and infection. Method: Liquid nitrogen was used to treat the lesion(s) with two 5-10 second freeze-thaw cycles Number of lesions treated: 1 Post-procedure instructions: Instructions were given orally and in writing. The office will be contacted if the lesion fails to resolve despite treatment, or if a side effect develops such as abnormal crusting, scabbing, redness or tenderness Cryotherapy, skin lesion - Right Abdomen (side) - Upper Related Procedures Ambulatory referral to Dermatology 3. Other specified erythematous conditions Right Abdomen (side) - Upper 4. Digital mucous cyst Left 3rd Finger Proximal Nail Fold Solitary, smooth skin-colored to translucent papule. Discussed that these are benign cysts that can recur due to a connection to the underlying joint space. If removal is desired, would refer to hand surgery. Patient will call if decides he wants removal and we will initiate referral to Dr. Jennifer Jerome. 5. Neoplasm of unspecified behavior of bone, soft tissue, and skin Left Forearm Hyperkeratotic papule Lesion biopsy Type of biopsy: tangential Informed consent: discussed and consent obtained Informed consent comment: The risks and benefits of the biopsy were discussed. Risks include but are not limited to bleeding, infection, scarring, pain, and nerve damage. An opportunity to ask questions prior to the procedure was permitted and all questions were answered. Patient was prepped and draped in usual sterile fashion: area cleansed with alcohol. Anesthesia: the lesion was anesthetized in a standard fashion Anesthetic: 1% lidocaine w/ epinephrine 1-100,000 buffered w/ 8.4% NaHCO3 Instrument used: DermaBlade Hemostasis achieved with: electrodesiccation Outcome: patient tolerated procedure well Outcome comment: The specimen was placed in a prelabeled formalin container to be sent for pathology Post-procedure details: sterile dressing applied and wound care instructions given Post-procedure details comment: Emphasized need to contact clinic for any signs of infection, uncontrollable bleeding, or complications. Dressing type: bandage Additional details: Photo taken Amount of lidocaine used: 1.0 cc Specimen A - Dermatopathology exam Differential Diagnosis: SCC vs prurigo Check Margins: No Size of lesion: 0.9 x 0.7 cm 6. Actinic keratosis Right Ear Erythematous scaly papules Patient was counseled regarding these sun-induced growths that can develop into squamous cell carcinoma if left untreated. Discussed treatment with cryotherapy. It was emphasized that any treated lesions that fail to resolve should be re-evaluated. Cryotherapy performed today; see procedure note Diagnosis: Actinic keratosis Indication: Precancerous Location: see skin exam Consent: Verbal consent was obtained and risks were discussed, including, but not limited to risks of scarring, darker or panama hat smearer pigmentary changes, recurrence, incomplete removal and infection. Method: Liquid nitrogen was used to treat the lesion(s) with two 5-10 second freeze-thaw cycles. Number of lesions treated: 1 Post-procedure instructions: Instructions were given orally and in writing. The office will be contacted if the lesion fails to resolve despite treatment, or if a side effect develops such as abnormal crusting, scabbing, redness or tenderness Educated on Efudex treatment. Discussed that treated areas will become red, crusty, and inflamed. If areas become too uncomfortable, patient may use OTC hydrocortisone cream to help decrease irritation and stop treatment early. Sun exposure should be avoided during treatment. Patient instructed to contact office for any questions. Lesions that fail to resolve once treated area is healed should be re-evaluated in the office. Handout given to patient. Plan to treat forearms. Cryotherapy, skin lesion - Right Ear Related Medications fluorouracil (Efudex) 5 % cream Apply to directed areas on the forearms twice a day x 14 days. Dispense 30 day supply but only use for 14 days. Next Visit: rec pt schedule FBSE documented in this encounter [facility] 09-07-2024 History of Presen t illness Narrative Images from the original note were not included. Subjective Patient ID: Mahendra Vaughn is a 69 y.o. male who presents for [facility] follow up. Flowsheet Row Patient Outreach from 08/31/2024 in [facility] with SED[facility] Hospital Information ED, Hospital or Care Home Facility Discharge? ED Patient has been contacted within 1 week of being seen in the ED Yes Diagnosis Atypical chest pain Discharge Date 08/26/24 Discharged To: Home Setting Discharge [facility] Engagement Call Start Time 0988 Admission Date 08/26/24 Medications Discharge medications reviewed and reconciled from hospital? No [Will ask advocate to add new rx] Is the patient having any side effects they believe may be caused by any medication additions or changes? No Does the patient have all medications ordered at discharge? Yes Prescription Comments RX ibuprofen 800mg tablet, po TID prn Appointments Does the patient have a primary care provider? Yes Nursing Interventions Verified appointment date/time/provider Has the patient kept scheduled appointments due by today? Yes Self Management Patient Teaching Does the patient have access to their discharge instructions? Yes Nursing Interventions Reviewed instructions with patient What is the patient's perception of their health status since discharge? Improving Is the patient/caregiver able to teach back the hierarchy of who to call/visit for symptoms/problems? PCP, Specialist, Home Health nurse, Urgent Care, ED, 911 Yes Wrap Up Wrap Up Additional Comments Pt presented to ED for intermittent chest pain lasting a couple of days. Pt notes having done some heavy lifting at work on 08/24 and chest pain continued to bother him a few days later. EKG - normal sinus rhythm 1 PVC noted, no acute ST-T wave changes noted. Chest XR showed no acute findings. Cardiac enzymes normal. Pt reports pain is improving. He is taking the 800mg Ibuprofen prn, about once daily. Call End Time 1558 Pt states the pain has improved and he still takes the 800 mg Ibuprofen maybe once a day. He feels he pulled something when he was working. Current Outpatient Medications on File Prior to Visit Medication Sig Dispense Refill sildenafil (Viagra) 100 MG tablet Take 100 mg by mouth Daily as needed cetirizine (ZyrTEC) 10 MG tablet Take 1 tablet (10 mg) by mouth Daily for 14 days 14 tablet 0 fluticasone (Flonase) 50 MCG/ACT nasal spray Administer 1-2 sprays into each nostril Daily Shake gently. Before first use, prime pump. After use, clean tip and replace cap. 16 g 0 ibuprofen 800 MG tablet Take 800 mg by mouth 3 (three) times a day as needed lisinopril-hydroCHLOROthiazide 20-25 MG tablet TAKE 1 TABLET BY MOUTH ONCE DAILY 100 tablet 3 omeprazole (PriLOSEC) [address] capsule Take 2 capsules by mouth 1 (one) time each day at the same time. No current facility-administered medications on file prior to visit. I have reviewed and reconciled the history and medication list with the patient today. Allergies Allergen Reactions Sulfamethoxazole Unknown Trimethoprim Unknown Social History Tobacco Use Smoking status: Never Smokeless tobacco: Never Vaping Use Vaping status: Never Used Substance Use Topics Alcohol use: Never Comment: Caffeine intake: 3-4 cups per day coffee Drug use: Never Family History Problem Relation Name Age of Onset Cancer Father Melanoma Neg Hx Past Medical History: Diagnosis Date Essential hypertension, benign (CMS/HCC) Hyperlipidemia (CMS/HCC) Internal derangement of right knee 06/23/2023 Malignant neoplasm of prostate ([facility]/HCC) 05/10/2014 Prostate cancer ([facility]) diagnosed 2010-[facility] Dr Stack Squamous cell skin cancer Past Surgical History: Procedure Laterality Date KNEE SURGERY Right 10/12/2021 knee arthroscopy TSCNCO MTP MR GUIDED BIOPSY PROSTATE 12/15/2020 MR GUIDED BIOPSY PROSTATE 12/15/2020 MR GUIDED RF ABLATION BONE 12/22/2019 MR GUIDED RF ABLATION BONE 12/22/2019 MR GUIDED RF ABLATION BONE 01/17/2021 MR GUIDED RF ABLATION BONE 01/17/2021 OTHER SURGICAL HISTORY 2015 excision squamous cell skin cancer scalp UMBILICAL HERNIA REPAIR 2014 VASECTOMY 1979 Visit Vitals BP 122/68 Pulse 69 Resp 16 Ht 5' 8 Wt 191 lb 9.6 oz SpO2 96% BMI 29.13 kg/m Smoking Status Never BSA 2.04 m Review of Systems Constitutional: Negative for chills, fatigue and fever. Respiratory: Positive for cough (Occasional tickle). Negative for shortness of breath and wheezing. Cardiovascular: Positive for chest pain (See HPI). Negative for palpitations and leg swelling. Gastrointestinal: Negative for abdominal pain, constipation, diarrhea, nausea and vomiting. Skin: Negative for rash. Objective Physical Exam Constitutional: General: He is not in acute distress. Appearance: Normal appearance. HENT: Head: Normocephalic and atraumatic. Eyes: General: No scleral icterus. Cardiovascular: Rate and Rhythm: Normal rate and regular rhythm. Heart sounds: No murmur heard. Pulmonary: Effort: Pulmonary effort is normal. No respiratory distress. Breath sounds: Normal breath sounds. No wheezing, rhonchi or rales. Musculoskeletal: General: No swelling. Skin: General: Skin is warm and dry. Neurological: General: No focal deficit present. Mental Status: He is alert and oriented to person, place, and time. Psychiatric: Mood and Affect: Mood normal. Behavior: Behavior normal. Assessment/Plan Diagnoses and all orders for this visit: Atypical chest pain Symptoms are improving. He can continue the Ibuprofen as needed, reminded pt to take it with food. Reminded pt of potential s/e including GI irritation. Benign essential hypertension ([facility]) Patient's blood pressure is currently well controlled. Continue with current medications and I will continue to monitor. Goal BP remains less than 130/80. Premature ventricular contraction One seen on ECG in the ER. Advised is common. Reviewed s/s that would warrant further evaluation. The patient was seen today in follow up of recent hospital ER visit. All available hospital records/labs/diagnostics were reviewed and discussed with the patient. ER discharge meds were reviewed. Any changes to plan are noted above. Follow up in about 6 months (around 03/08/2025) for Hypertension. documented in this encounter [facility] 08-23-2024 History of Presen t illness Narrative Images from the original note were not included. Subjective Patient ID: Mahendra Vaughn is a 69 y.o. male who presents for Hypertension. Skin lesion on abd x 2-3 weeks denies any pain Hypertension Patient is here for follow-up of elevated blood pressure. pressure is well controlled at home. Cardiac symptoms: none. Patient denies chest pain, chest pressure/discomfort, dyspnea, exertional chest pressure/discomfort, irregular heart beat, lower extremity edema, near-syncope, orthopnea, palpitations, and paroxysmal nocturnal dyspnea. Cardiovascular risk factors: advanced age (older than 55 for men, 65 for women), hypertension, and male gender. Hypertension Current Outpatient Medications on File Prior to Visit Medication Sig Dispense Refill fluticasone (Flonase) 50 MCG/ACT nasal spray Administer 1-2 sprays into each nostril Daily Shake gently. Before first use, prime pump. After use, clean tip and replace cap. 16 g 0 lisinopril-hydroCHLOROthiazide 20-25 MG tablet TAKE 1 TABLET BY MOUTH ONCE DAILY 100 tablet 3 omeprazole (PriLOSEC) [address] capsule Take 2 capsules by mouth 1 (one) time each day at the same time. cetirizine (ZyrTEC) 10 MG tablet Take 1 tablet (10 mg) by mouth Daily for 14 days 14 tablet 0 No current facility-administered medications on file prior to visit. I have reviewed and reconciled the history and medication list with the patient today. Allergies Allergen Reactions Sulfamethoxazole Unknown Trimethoprim Unknown Social History Tobacco Use Smoking status: Never Smokeless tobacco: Never Vaping Use Vaping status: Never Used Substance Use Topics Alcohol use: Never Comment: Caffeine intake: 3-4 cups per day coffee Drug use: Never Family History Problem Relation Name Age of Onset Cancer Father Melanoma Neg Hx Past Medical History: Diagnosis Date Essential hypertension, benign (CMS/HCC) Hyperlipidemia (CMS/HCC) Internal derangement of right knee 06/23/2023 Malignant neoplasm of prostate (CMS/HCC) 05/10/2014 Prostate cancer (CMS/HCC) diagnosed 2009-[facility] Dr Stack Squamous cell skin cancer Past Surgical History: Procedure Laterality Date KNEE SURGERY Right 10/12/2021 knee arthroscopy TSCNCO MTP MR GUIDED BIOPSY PROSTATE 12/15/2020 MR GUIDED BIOPSY PROSTATE 12/15/2020 MR GUIDED RF ABLATION BONE 12/22/2019 MR GUIDED RF ABLATION BONE 12/22/2019 MR GUIDED RF ABLATION BONE 01/17/2021 MR GUIDED RF ABLATION BONE 01/17/2021 OTHER SURGICAL HISTORY 2015 excision squamous cell skin cancer scalp UMBILICAL HERNIA REPAIR 2014 VASECTOMY 1979 Visit Vitals BP 134/70 Pulse 75 Ht 5' 8 Wt 190 lb SpO2 98% BMI 28.89 kg/m Smoking Status Never BSA 2.03 m Review of Systems Objective Physical Exam Constitutional: General: He is not in acute distress. Appearance: He is normal weight. He is not ill-appearing. HENT: Head: Normocephalic. Cardiovascular: Rate and Rhythm: Normal rate. Rhythm irregular. Heart sounds: Normal heart sounds. No murmur heard. Pulmonary: Effort: Pulmonary effort is normal. Breath sounds: Normal breath sounds. Abdominal: Comments: Verrucous skin lesion mid right abdomen Musculoskeletal: General: No swelling. Right lower leg: No edema. Left lower leg: No edema. Neurological: Mental Status: He is alert. Psychiatric: Mood and Affect: Mood normal. Thought Content: Thought content normal. Judgment: Judgment normal. Assessment/Plan Diagnoses and all orders for this visit: Benign essential hypertension (CMS/HCC) - This is a chronic medical condition that is stable since last assessment. No changes in treatment are suggested at this time. Mixed hyperlipidemia (CMS/HCC) Flu vaccine need - Influenza, high-dose seasonal, quadrivalent, PF ([id number]) (Fluzone High Dose [place] 0.7mL dose) Malignant neoplasm of prostate (CMS/HCC) Verrucous skin lesion - Ambulatory referral to Dermatology; Future PVC's (premature ventricular contractions) - EKG performed, NSR. Follow up in about 6 months (around 02/21/2025) for Routine F/U. documented in this encounter [facility] 09-01-2021 Evaluation note Encounter Date Diagnosis Assessment Notes Aug, Contact with and (suspected) exposure to other viral communicable diseases (ICD-10 - Z20.828) Aug, Acute non-recurrent maxillary sinusitis (ICD-10 - J01.00) Advised patient that rapid covid antigen test today was negative. Will tx today for bacterial sinusitis based on physical exam and duration of symptoms. Take antibiotic as prescribed, complete entire course of therapy even if symptoms resolve. May take OTC cold medications as directed on packaging. Supportive care as directed, push fluids and rest, Tylenol and/or Motrin as directed for discomfort/feve r, warm moist compress over sinuses several times a day, cool mist humidification, nasal saline spray as directed. Symptoms should improve in the next 3 days, if symptoms persist follow up with PCP. Immediate eval for warning s/sx as discussed. Patient verbalizes understanding and is agreeable to treatment plan Aug, Other Additional time spent conducting pre-visit phone call, screening for symptoms, instructions on social distancing, application and removal of PPE, and cleaning of examination room, equipment and supplies was preformed. Patient education given for testing methodology and results. Patient care instructions given in writting by [facility] Care At Home document [employer] Other Evaluation + Plan note No data available for this section [facility] Diagnosis Benign essential hypertension (CMS/HCC)- Primary Essential hypertension, benign Mixed hyperlipidemia (CMS/HCC) Mixed hyperlipidemia Flu vaccine need Malignant neoplasm of prostate (CMS/HCC) Malignant neoplasm of prostate Verrucous skin lesion Viral warts, unspecified PVC's (premature ventricular contractions) Other premature beats documented in this encounter [facility] HealthcareEvaluation noteNo assessment information availableThe [facility] Work Phone: Evaluation note* Diagnosis Atypical chest pain- Primary Other chest pain Benign essential hypertension (CMS/HCC) Essential hypertension, benign PVC (premature ventricular contraction) Other premature beats documented in this encounter [facility] HealthcareEvaluation note* Diagnosis Seborrheic keratosis- Primary Common wart Other specified viral warts Other specified erythematous conditions Digital mucous cyst Sebaceous cyst Neoplasm of unspecified behavior of bone, soft tissue, and skin Actinic keratosis documented in this encounter [facility] HealthcareHistory general Narrative - Reported* Type Description Date Medical History prostate cancer (2009, currently in remission) [employer] Other Hospital Discharge instructions No data available for this section [facility] Summary Purpose Family History Relationship Condition Age at Onset Recorded Date/T angelia mother Leukemia Unknown father Malignant neoplasm of prostate Unknown brother Malignant neoplasm of prostate Unknown brother History of malignant neoplasm of prostate Unknown father Unknown mother Unknown Advance Directives Advance Directive Response Recorded Date/ Time Advance Directives No December 09, 2018 1:33pm Chief Complaint and Reason for Visit Chief Complaint chest pain Additional Source Comments (unrecognized sect ion and content) No Status Records FoundNo Status Records FoundNo Status Records FoundNo Status Records FoundNo Status Records FoundNo Status Records Found INFORMATION SOURCE (unrecogn ized section and content) DATE CREATED AUTHOR 07/07/2019 [facility] DATE CREATED AUTHOR AUTHOR'S ORGANIZ ATION 10/08/2019 [facility] DATE CREATED AUTHOR AUTHOR'S ORGANIZ ATION 03/03/2022 [facility] DATE CREATED AUTHOR AUTHOR'S ORGANIZ ATION 10/30/2022 [facility] DATE CREATED AUTHOR AUTHOR'S ORGANIZ ATION 09/10/2024 [facility] DATE CREATED AUTHOR AUTHOR'S ORGANIZ ATION 09/28/2024 [facility] Special[facility] EPIC REASON FOR VISIT (unrecogniz ed section and content) Reason Comments Hypertension Reason Comments Suspicious Skin Lesion Specialty Diagnoses / Procedures Referred By Contac t Referred To Contact Dermatology Diagnoses Verrucous skin lesion Procedures HI OFFICE/OUTPATIENT NEW HIGH MDM 60 MINUTES Chilo Rodriguez MD [address] [place] [address] Phone: tel: fax: Vida Ozuna MD [address] [place] [address] Phone: tel: fax: Referral ID Status Reason Start Date Expiration Date V isits Requested Visits Authorized [id number] Closed Specialty Services Required 08/23/2024 02/19/2025 1 1 Care Teams (unrecognized sec tion and content) [employer] Relationship Specialty Start Date End Date Chilo Rodriguez MD [address] [place] [address] PCP - ACO Reach 04/03/23 Chilo Rodrigeuz MD [address] [place] [address] PCP - General Internal Medicine 03/18/23 [employer] Relationship Specialty Start Date End Date Chilo Rodriguez MD [address] [place] [address] PCP - ACO Reach 04/03/23 Chilo Rodriguez MD [address] [place] [address] PCP - General Internal Medicine 03/18/23 Team Status: Active Member Role Status Dates Chilo Rodriguez II MD Primary Care Provider Active Team Status: Inactive Member Role Status Dates Chilo Rodriguez II MD Primary Care Provider Active Start: August 26, 2024 End: August 26, 2024 Pearl Pagan MD Emergency Provider Active Star t: August 26, 2024 End: August 26, 2024 [employer] Relationship Specialty Start Date End Date Chilo Rodriguez MD [address] [place] [address] PCP - ACO Reach 04/03/23 Chilo Rodriguez MD [address] [place] [address] PCP - General Internal Medicine 03/18/23 [employer] Relationship Specialty Start Date End Date Chilo Rodriguez MD [address] [facility] [address] [place] [address] PCP - ACO Reach 04/03/23 Chilo Rodriguez MD [address] [facility] [address] [place] [address] PCP - General Internal Medicine 03/18/23 [employer] Relationship Specialty Start Date End Date Chilo Rodriguez MD [address] [facility] [address] [place] [address] PCP - ACO Reach 04/03/23 Chilo Rodriguez MD [address] [facility] [address] [place] [address] PCP - General Internal Medicine 03/18/23 [employer] Relationship Specialty Start Date End Date Chilo Rodriguez MD [address] [facility] [address] [place] [address] PCP - ACO Reach 04/03/23 Chilo Rodriguez MD [address] [facility] [address] [place] [address] PCP - General Internal Medicine 03/18/23 Goals (unrecognized section and content) Goals may be documented in a n alternate section FOR RECORDS PERTAINING TO PATIENTS WHO ARE OR HAVE BEEN ENROLLED IN A CHEMICAL DEPENDENCY/SUBSTANCEABUSE PROGRAM, SOME INFORMATION MAY BE OMITTED. This clinical summary was aggregated from multiple sources. Caution should be exercised in using it in the provision of clinical care. This summary normalizes information from multiple sources, and as a consequence, information in this document may materially change the coding, format and clinical context of patient data. In addition, data may be omitted in some cases. CLINICAL DECISIONS SHOULD BE BASED ON THE PRIMARY CLINICAL RECORDS. [facility] provides no warranty or guarantee of the accuracy or completeness of information in this document.
[2024-10-20 14:50] LABS: BOX Test Sent Out PSA
== END 2024-10-20 13:52 | disposition home or self-care (01) ==
LOC: LAB 13:53
PROVIDERS: PCP Internal Medicine
DX: C61 Malignant neoplasm of prostate (principal)
CPT/HCPCS: 36415